=== PATIENT | female | born 1970 | race Caucasian/White ===

== ENCOUNTER 2018-11-07 22:15 | Emergency (ER) | payer SELFPAY ==
[~2018-11-07] VITALS: Ht 154.9 cm; Wt 77.1 kg
[~2018-11-07 22:15] MED LIST: CEPH500C PO; FERR-57 PO; LEVO125T6 PO; OXYC-12 PO; PNV1CAPS13 PO
[2018-11-07] MEDS ORDERED: ONDANSETRON 4 MG/2 ML (SDV) Z0FRAN IVP ONE (22:30)
[2018-11-07 22:56] LABS: BASOPHILS % (AUTO) 0 % (0-10); EOSINOPHILS # (AUTO) 0.5 10^3/uL (0.0-0.3); EOSINOPHILS % (AUTO) 6 % (0-10); HEMATOCRIT 34 % (35-52); HEMOGLOBIN 11.6 G/DL (11.5-16.0); LYMPHOCYTES # (AUTO) 1.7 X 10^3 (1.0-4.0); LYMPHOCYTES % (AUTO) 23 % (12-44); MEAN CORPUSCULAR HEMOGLOBIN 29 PG (25-34); MEAN CORPUSCULAR HGB CONC 34 G/DL (32-36); MEAN CORPUSCULAR VOLUME 84 FL (80-99); MEAN PLATELET VOLUME 11.2 FL (7.4-10.4); MONOCYTES # (AUTO) 0.7 X 10^3 (0.0-1.0); MONOCYTES % (AUTO) 9 % (0-12); NEUTROPHILS # (AUTO) 4.5 X 10^3 (1.8-7.8); NEUTROPHILS % (AUTO) 62 % (42-75); PLATELET COUNT 267 10^3/uL (130-400); RED BLOOD COUNT 4.05 10^6/uL (4.35-5.85); RED CELL DISTRIBUTION WIDTH 14.4 % (10.0-14.5); WHITE BLOOD COUNT 7.3 10^3/uL (4.3-11.0)
[2018-11-07 23:19] LABS: ALANINE AMINOTRANSFERASE 29 U/L (0-55); ALBUMIN 4.3 GM/DL (3.2-4.5); ALKALINE PHOSPHATASE 93 U/L (40-136); AMYLASE 44 U/L (25-125); BILIRUBIN,TOTAL 0.4 MG/DL (0.1-1.0); BUN/CREATININE RATIO 13; CALCIUM 9.3 MG/DL (8.5-10.1); CARBON DIOXIDE 20 MMOL/L (21-32); CHLORIDE 107 MMOL/L (98-107); CREATINE KINASE 45 U/L (29-168); CREATININE SERUM 0.98 MG/DL (0.60-1.30); GFR ESTIMATED > 60; GLUCOSE 127 MG/DL (70-105); LIPASE 46 U/L (8-78); MAGNESIUM 2.3 MG/DL (1.8-2.4); POTASSIUM 3.6 MMOL/L (3.6-5.0); SODIUM 138 MMOL/L (135-145); TOTAL PROTEIN 7.6 GM/DL (6.4-8.2)
[2018-11-07 23:33] LABS: INR 0.9 (0.8-1.4); PROTHROMBIN TIME PATIENT 12.6 SEC (12.2-14.7)
[2018-11-07 23:38] LABS: CREATINE KINASE MB 0.7 NG/ML (<6.6); TSH (THYROID ANALYZER) 86.63 UIU/ML (0.35-4.94)
[2018-11-07 23:56] LABS: BILIRUBIN,URINE NEGATIVE (NEGATIVE); GLUCOSE, URINE (UA) NEGATIVE (NEGATIVE); KETONES,URINE NEGATIVE (NEGATIVE); LEUKOCYTE ESTERASE ,URINE NEGATIVE (NEGATIVE); NITRITE,URINE NEGATIVE (NEGATIVE); PH,URINE 6 (5-9); PROTEIN,URINE NEGATIVE (NEGATIVE); UROBILINOGEN,URINE NORMAL (NORMAL)
[2018-11-07 23:57] LABS: BACTERIA,URINE NEGATIVE /HPF; CLARITY,URINE CLEAR; COLOR,URINE YELLOW
[2018-11-08 00:03] LABS: AMPHETAMINE SCREEN, URINE NEGATIVE (NEGATIVE); BARBITURATE SCREEN URINE NEGATIVE (NEGATIVE); BENZODIAZEPINES SCREEN URINE NEGATIVE (NEGATIVE); CANNABINOID SCREEN, URINE NEGATIVE (NEGATIVE); COCAINE SCREEN URINE NEGATIVE (NEGATIVE); METHADONE STAT NEGATIVE (NEGATIVE); METHAMPHETAMINE SCREEN URINE S NEGATIVE (NEGATIVE); OPIATE SCREEN URINE NEGATIVE (NEGATIVE); OXYCODONE STAT NEGATIVE (NEGATIVE); PROPOXYPHENE STAT NEGATIVE (NEGATIVE); TRICYCLIC ANTIDEPRESSANTS SCRE NEGATIVE (NEGATIVE)
--- NOTE | 2018-11-08 00:21 | ED General ---
General Chief Complaint: General Problems/Pain Stated Complaint: SOB, WANTS TO VOMIT Nursing Triage Note: PT TO ROOM #7 VIA ED W/C BY ED STAFF. UPON ARRIVAL PT A&OX4, TEARFUL, WITH INCREASED RR. PT SPEAKS MINIMAL SAMI AND HAS SISTER IN LAW @ SIDE TRANSLATING. PT REPORTS SHE HAS HAD INCREASED STRESS LATELY AND BEGAN TO FEEL ANXIOUS, SOB, WITH CHEST TIGHNESS THIS EVENING APPROX 1 HR PRIOR TO ARRIVAL. PT REPORTS HYPERTENSION AND HAS BEEN OFF BP MEDICATIONS FOR APPROX 3 MONTHS. Nursing Sepsis Screen: No Definite Risk Allergies and Home Medications Allergies Coded Allergies: Penicillins (Verified Allergy, Unknown, 12/28/09) Home Medications Hydroxyzine Pamoate 50 Mg Capsule, 50 MG PO Q6H Prescribed by: АЛЕКСАНДР ALAS on 11/08/18 0023 Levothyroxine Sodium 125 Mcg Tablet, 1 EACH PO DAILY, (Reported) Past Gkqqbri-Hmbikh-Zthjjy Hx Patient Social History Alcohol Use: Denies Use Recreational Drug Use: No Smoking Status: Never a Smoker 2nd Hand Smoke Exposure: No Recent Foreign Travel: No Contact w/Someone Who Travel: No Recent Infectious Disease Expo: No Recent Hopitalizations: Yes (CHILDBIRTH X3) Physical Abuse: No Sexual Abuse: No Immunizations Up To Date Tetanus Booster (TDap): Less than 5yrs Date of Influenza Vaccine: Jul 29, 2012 Seasonal Allergies Seasonal Allergies: No Past Medical History Surgeries: Yes Section Respiratory: No Cardiac: Yes Hypertension Neurological: No Reproductive Disorders: No Sexually Transmitted Disease: No HIV/AIDS: No Gastrointestinal: No Musculoskeletal: No Endocrine: Yes Hypothyroidsim, Diabetes, Non-Insulin dep Are Your Blood Sugars Over 250: No HEENT: No Cancer: No Psychosocial: Yes Anxiety Integumentary: No Blood Disorders: Yes Physical Exam Vital Signs Vital Signs - First Documented 11/07/18 22:20 Temp 98.5 Pulse 81 Resp 20 B/P (MAP) 170/91 (117) Pulse Ox 100 O2 Delivery Room Air Capillary Refill : Less Than 3 Seconds Height, Weight, BMI Height: 5'1.00" Weight: 170lbs. oz. 77.195371kd; BMI Method:Stated Progress/Results/Core Measures Suspected Sepsis Recent Fever Within 48 Hours: No Infection Criteria Present: None New/Unexplained Altered Menta: No Sepsis Screen: No Definite Risk SIRS Temperature:98.5 Pulse: 81 Respiratory Rate: 20 Laboratory Tests 11/07/18 22:48: White Blood Count 7.3 Blood Pressure 170 /91 Mean: 117 Laboratory Tests 11/07/18 22:48: Creatinine 0.98, INR Comment 0.9, Platelet Count 267, Total Bilirubin 0.4 Results/Orders Lab Results Laboratory Tests Test 11/07/18 22:40 11/07/18 22:48 11/07/18 23:38 Range/Units Glucometer 129 H 70-110 MG/DL White Blood Count 7.3 4.3-11.0 10^3/uL Red Blood Count 4.05 L 4.35-5.85 10^6/uL Hemoglobin 11.6 11.5-16.0 G/DL Hematocrit 34 L 35-52 % Mean Corpuscular Volume 84 80-99 FL Mean Corpuscular Hemoglobin 29 25-34 PG Mean Corpuscular Hemoglobin Concent 34 32-36 G/DL Red Cell Distribution Width 14.4 10.0-14.5 % Platelet Count 267 130-400 10^3/uL Mean Platelet Volume 11.2 H 7.4-10.4 FL Neutrophils (%) (Auto) 62 42-75 % Lymphocytes (%) (Auto) 23 12-44 % Monocytes (%) (Auto) 9 0-12 % Eosinophils (%) (Auto) 6 0-10 % Basophils (%) (Auto) 0 0-10 % Neutrophils # (Auto) 4.5 1.8-7.8 X 10^3 Lymphocytes # (Auto) 1.7 1.0-4.0 X 10^3 Monocytes # (Auto) 0.7 0.0-1.0 X 10^3 Eosinophils # (Auto) 0.5 H 0.0-0.3 10^3/uL Basophils # (Auto) 0.0 0.0-0.1 10^3/uL Prothrombin Time 12.6 12.2-14.7 SEC INR Comment 0.9 0.8-1.4 Activated Partial Thromboplast Time 41 H 24-35 SEC Sodium Level 138 135-145 MMOL/L Potassium Level 3.6 3.6-5.0 MMOL/L Chloride Level 107 98-107 MMOL/L Carbon Dioxide Level 20 L 21-32 MMOL/L Anion Gap 11 5-14 MMOL/L Blood Urea Nitrogen 13 7-18 MG/DL Creatinine 0.98 0.60-1.30 MG/DL Estimat Glomerular Filtration Rate > 60 BUN/Creatinine Ratio 13 Glucose Level 127 H 70-105 MG/DL Calcium Level 9.3 8.5-10.1 MG/DL Corrected Calcium 9.1 8.5-10.1 MG/DL Magnesium Level 2.3 1.8-2.4 MG/DL Total Bilirubin 0.4 0.1-1.0 MG/DL Aspartate Amino Transf (AST/SGOT) 24 5-34 U/L Alanine Aminotransferase (ALT/SGPT) 29 0-55 U/L Alkaline Phosphatase 93 40-136 U/L Total Creatine Kinase 45 29-168 U/L Creatine Kinase MB 0.7 <6.6 NG/ML Troponin I < 0.028 <0.028 NG/ML B-Type Natriuretic Peptide < 10.0 <100.0 PG/ML Total Protein 7.6 6.4-8.2 GM/DL Albumin 4.3 3.2-4.5 GM/DL Amylase Level 44 25-125 U/L Lipase 46 8-78 U/L TSH [place] Testing 86.63 H 0.35-4.94 UIU/ML Serum Test, Qualitative NEGATIVE NEGATIVE Serum Alcohol < 10 <10 MG/DL Urine Color YELLOW Urine Clarity CLEAR Urine pH 6 5-9 Urine Specific [place] 1.015 L 1.016-1.022 Urine Protein NEGATIVE NEGATIVE Urine Glucose (UA) NEGATIVE NEGATIVE Urine Ketones NEGATIVE NEGATIVE Urine Nitrite NEGATIVE NEGATIVE Urine Bilirubin NEGATIVE NEGATIVE Urine Urobilinogen NORMAL NORMAL MG/DL Urine Leukocyte Esterase NEGATIVE NEGATIVE Urine RBC (Auto) 3+ H NEGATIVE Urine RBC 2-5 H /HPF Urine WBC NONE /HPF Urine Squamous Epithelial Cells 2-5 /HPF Urine Crystals NONE /LPF Urine Bacteria NEGATIVE /HPF Urine Casts NONE /LPF Urine Mucus NEGATIVE /LPF Urine Culture Indicated NO Urine Opiates Screen NEGATIVE NEGATIVE Urine Oxycodone Screen NEGATIVE NEGATIVE Urine Methadone Screen NEGATIVE NEGATIVE Urine Propoxyphene Screen NEGATIVE NEGATIVE Urine Barbiturates Screen NEGATIVE NEGATIVE Ur Tricyclic Antidepressants Screen NEGATIVE NEGATIVE Urine Phencyclidine Screen NEGATIVE NEGATIVE Urine Amphetamines Screen NEGATIVE NEGATIVE Urine Methamphetamines Screen NEGATIVE NEGATIVE Urine Benzodiazepines Screen NEGATIVE NEGATIVE Urine Cocaine Screen NEGATIVE NEGATIVE Urine Cannabinoids Screen NEGATIVE NEGATIVE My Orders Orders - АЛЕКСАНДР ALAS DO Accucheck Stat ONCE (11/07/18 22:28) Saline Lock/Iv-Start (11/07/18 22:28) Ekg Tracing (11/07/18 22:28) Monitor-Rhythm Ecg Trace Only (11/07/18 22:28) Alcohol (11/07/18:28) Amylase (11/07/18:28) BNP (11/07/18:28) Cbc With Automated Diff (11/07/18:28) Comprehensive Metabolic Panel (11/07/18:28) Creatine Kinase (11/07/18:28) Creatine Kinase Mb (11/07/18:28) Drug Screen Stat (Urine) (11/07/18:28) Hcg,Qualitative Serum (11/07/18:) Lipase (11/07/18:28) Magnesium (11/07/18:) Protime With Inr (11/07/18:) Partial Thromboplastin Time (11/07/18:28) Thyroid Analyzer (11/07/18:28) Troponin I (11/07/18:) Ua Culture If Indicated (11/07/18:28) Chest 1 View, Ap/Pa Only (11/07/18 22:28) Ondansetron Injection (Zofran Injectio (11/07/18 22:30) Free T4 (Free Thyroxine) (11/07/18 22:48) Medications Given in ED Current Medications Medications Dose Ordered Sig/Cielo Route Start Time Stop Time Status Last Admin Dose Admin Ondansetron HCl 4 mg ONCE ONCE IVP 11/07/18 22:30 11/07/18 22:31 DC 11/07/18 22:52 4 MG Vital Signs/I&O 11/07/18 22:20 Temp 98.5 Pulse 81 Resp 20 B/P (MAP) 170/91 (117) Pulse Ox 100 O2 Delivery Room Air Capillary Refill : Less Than 3 Seconds Blood Pressure Mean: 117 Point of Care Testing Finger Stick Blood Glucose: 129 Progress Note : Progress Note SYMPTOMS OF ANXIETY AND CHEST TIGHTNESS RESOLVED WITHOUT TREATMENT DURING ER STAY PT NOW C/O HEADACHE, NOW THAT SHE IS CALMED DOWN AND CHEST IS NO LONGER FEELING TIGHT PRIOR TO DISMISSAL, MALE S.O. STATES SHE HAS BEEN OUT OF HER THYROID MEDICATION X 2 DAYS, OTHERWISE SHE TAKES IT EVERY DAY. Departure Impression Primary Impression: ANXIETY WITH HYPERVENTILATION Additional Impressions: HYPOTHYROIDISM WITH ELEVATED TSH HTN (hypertension) Disposition: 01 HOME, SELF-CARE Condition: Improved Departure-Patient Inst. Referrals: [facility] (PCP/Family) Primary Care Physician Patient Instructions: Anxiety, Adult (DC), High Blood Pressure (DC), Hyperventilation, Hypothyroidism (Underactive Thyroid) (DC) Add. Discharge Instructions: DOUBLE YOUR DOSE OF THYROID MEDICATION TYLENOL 1 GRAM/ MOTRIN 600 MG 4 TIMES A DAY NEEDED FOR PAIN FOLLOW UP WITH YOUR DR THIS WEEK FOR FURTHER CARE RETURN TO ER IF SYMPTOMS WORSEN All discharge instructions reviewed with patient and/or family. Voiced understanding. Scripts Hydroxyzine Pamoate (Vistaril) 50 Mg Capsule 50 MG PO Q6H for Anxiety, #20 CAP Prov: АЛЕКСАНДР ALAS DO 11/08/18 АЛЕКСАНДР ALAS DO Nov 08, 2018 00:21
[2018-11-08] MEDS ORDERED: HYDR50CA PO (00:23)
--- OUTSIDE RECORDS SUMMARY | 2018-11-08 00:27 | XMS REPORT ---
Author Author ALEN Beckwith Organization [facility] Address [address] [place] [address] Care Team Providers Care Chha Name Role Phone ALEN Beckwith Unavailable PROBLEMS Type Condition ICD9-CM Code BVQ41-SU Code Onset Dates Condition Status SNOMED Code Problem Elevated blood pressure I10 Active 79413570 Problem Hypercholesteremia E78.00 Active 45465648 Problem Sciatica of right side M54.31 Active 55523440 Problem Type 2 diabetes mellitus with hyperglycemia, without long-term current use of insulin E11.65 Active 57479612 Problem Headache R51 Active 46903914 Problem Acquired hypothyroidism E03.9 Active 115221309 Problem Body mass index (BMI) of 32.0-32.9 in adult Z68.32 Active 137569051 Problem Other obesity due to excess calories E66.09 Active 816523024 ALLERGIES No Information ENCOUNTERS Encounter Location Date Diagnosis [facility] [address] [address] Jul, Acquired hypothyroidism E03.9 [facility] [id number] [place] [address] Jul, Acquired hypothyroidism E03.9 [facility] [address] [address] May, Acquired hypothyroidism E03.9 [facility] [address] [address] May, Type 2 diabetes mellitus with hyperglycemia, without long- term current use of insulin E11.65 ; Acquired hypothyroidism E03.9 and Hypercholesteremia E78.[address] [facility] [id number] [place] [address] Apr, Sciatica of right side M54.31 [place] [id number] [place] [address] Jan, Type 2 diabetes mellitus with hyperglycemia, without long- term current use of insulin E11.65 ; Acquired hypothyroidism E03.9 ; Hypercholesteremia E78.00 ; [place] cardiac risk <10% in next 10 years Z91.89 ; Other obesity due to excess calories E66.09 and Body mass index (BMI) of 32.0-32.9 in adult Z68.32 [place] [id number] [place] [address] 12072- 42[address] Dec, [place] [id number] [place] [address] 43051- 65[address] Dec, Acquired hypothyroidism E03.9 [place] [id number] [place] [address] 07186- 6720 Dec, Type 2 diabetes mellitus with hyperglycemia, without long- term current use of insulin E11.65 ; Acquired hypothyroidism E03.9 ; Elevated blood pressure I10 and Other obesity due to excess calories E66.09 [place] [id number] [place] [address] 14[address]- 7044 Dec, Type 2 diabetes mellitus with hyperglycemia, without long- term current use of insulin E11.65 ; Acquired hypothyroidism E03.9 ; Elevated blood pressure I10 ; Dysuria R30.0 ; Dizziness R42 ; Acute cystitis with hematuria N30.01 ; Headache R51 ; Other obesity due to excess calories E66.09 and Body mass index (BMI) of 32.0-32.9 in adult Z68.[address] [facility] [id number] [place] [address] -[address]691 Mar, Foot pain, left M79.672 [place] [id number] [place] [address] 6[address]65- 2944 Dec, Hypothyroidism E03.9 [facility] [id number] [place] [address]31- [address] Dec, Acquired hypothyroidism E03.9 ; Elevated blood pressure I10 and Headache R51 [facility] [id number] [place] [address] 03734- 7233 Sep, Bone spur M77.9 [facility] [id number] [place] [address] 2546 Sep, Hypothyroidism E03.9 [facility] [id number] [place] [address]2768 2546 Sep, Pain in right foot M79.671 [facility] [address] [address]46 Sep, Hypothyroidism E03.9 [facility] [address] [address] 2546 Sep, Hypothyroidism E03.9 [place] [id number] [place] [address] 70731- 2547 Sep, Pain in right foot M79.671 and Hypothyroidism E03.9 [place] [id number] [place] [address] 83337- 2033 Jun, Hypothyroidism 244.9 and History of blurry vision V12.49 [place] [id number] [place] [address] 01478- 0140 May, Nexplanon removal V25.43 and Initiation of OCP (BCP) V25.01 [place] [id number] [place] [address] 61332- 1619 Apr, [place] [id number] [place] [address] 96730- 2547 Apr, Hypothyroidism 244.9 and Constipation 564.00 [place] [address] [address]- [address] Mar, [place] [id number] [place] [address]- 25[address] Mar, [place] [address] [address] Mar, Unspecified hypothyroidism 244.9 [facility] [address] [facility] [id number] [address] Mar, Unspecified hypothyroidism 244.9 [facility] [address] [facility] [id number] [place] [address] 16 Mar, 2015 Unspecified hypothyroidism 244.9 [facility] [address] [facility] [id number] [place] [address] Jan, [facility] [address] [facility] [id number] [place] [address] Jan, [facility] [id number] [place] [address] 25728- 27[address] Nov, [facility] [address] [place] [address] Nov, [facility] [address] [place] [address] 279[address] Oct, [facility] [address] [place] [address] Oct, [facility] [address] [place] [address] Oct, [facility] [address] [place] [address] Oct, [facility] [address] [place] [address] Oct, [facility] [address] [id number] [address] Oct, [facility] [place] [facility] [address] [place] [address] 30[address] Oct, [facility] [address] [id number] [address]- 9[address] Oct, [facility] [address] [place] [address]- 9[address] Oct, [facility] [address] [id number] [place] [address] February, [facility] [place] [facility] [address] [id number] [place] [address]- 9896 February, [facility] [place] [facility] [address] [id number] [place] [address]- 7458 Dec, [facility] [place] [facility] [address] [id number] [place] [address]- 1737 Dec, [facility] [place] [facility] [address] [id number] [place] [address]- 2532 Dec, [facility] [place] [facility] [address] [id number] [place] [address]- 0329 Dec, [facility] [place] [facility] [address] [id number] [place] [address]- 2750 Nov, [facility] [place] [facility] [address] [id number] [place] [address]- 5695 Nov, [facility] [place] [facility] [address] [id number] [place] [address]- 6992 Oct, [facility] [place] [facility] [address] [id number] [place] [address]- 8653 Oct, [facility] [place] [facility] [address] [id number] [place] [address]- 6940 Mar, [facility] [place] [facility] [address] [id number] [place] [address]- 1926 February, [facility] [place] [facility] [address] [id number] [place] [address]- 5286 February, [facility] [place] [facility] [address] [id number] [place] [address]- 5066 February, [facility] [place] [facility] [address] [id number] [place] [address]- 5[address] February, [facility] [place] [facility] [address] [id number] [place] [address]- 5570 February, [facility] [address] [id number] [place] [address]- 2740 February, [facility] [address] [id number] [place] [address]- 2546 February, [facility] [address] [id number] [place] [address]- 6172 Dec, [facility] [address] [id number] [place] [address]- 0633 Dec, [facility] [address] [id number] [place] [address]- 3248 Dec, [facility] [address] [id number] [place] [address]- 9427 Nov, [facility] [address] [id number] [place] [address]- 5303 Nov, [facility] [address] [id number] [place] [address]- 6379 Nov, [facility] [id number] [place] [address]- 1189 Nov, [facility] [address] [facility] [id number] [place] [address]- 3241 Nov, [facility] [address] [id number] [place] [address]- 6139 Nov, [facility] [address] [id number] [place] [address]- 6658 Nov, [facility] [place] [facility] [address] [id number] [place] [address]- 9916 Oct, [facility] [place] [facility] [address] [id number] [place] [address]- 1178 Oct, [facility] [place] [facility] [address] [id number] [place] [address]- 0667 Oct, [facility] [place] [facility] [address] [id number] [place] [address]- 4455 Oct, [facility] [place] [facility] [address] [id number] [place] [address]- 4566 Oct, [facility] [place] [facility] [address] [facility] [id number] [place] [address]- 4056 Sep, [facility] [place] [facility] [address] [id number] [place] [address]- 8580 Sep, [facility] [place] [facility] [address] [id number] [place] [address]- 7137 Aug, [facility] [place] [facility] [address] [id number] [place] [address]- 1182 Aug, [facility] [place] [facility] [address] [id number] [place] [address]- 4392 Jul, [facility] [place] [facility] [address] [id number] [place] [address]- 4237 Jul, [facility] [place] [facility] [address] [id number] [place] [address]- 2269 Jul, [facility] [place] [facility] [address] [id number] [place] [address]- 9620 Jul, [facility] [place] [facility] [address] [id number] [place] [address]- 1386 Jul, [facility] [place] [facility] [address] [id number] [place] [address]- 2094 Jul, [facility] [place] [facility] [address] [id number] [place] [address]- 5589 Jul, [facility] [place] [facility] [address] [facility] [id number] [place] [address]- 4439 Jul, [facility] [place] [facility] [address] [id number] [place] [address]- 0944 Jun, [facility] [place] [facility] [address] [id number] [place] [address]- 3364 26 Sep, 2011 [facility] [address] [id number] [place] [address] 2546 20 Sep, 2011 [facility] [address] [id number] [place] [address] 2546 19 Sep, 2011 [facility] [address] [id number] [place] [address] 2546 18 Sep, 2011 [facility] [address] [id number] [place] [address] 2546 12 Sep, 2011 [facility] [address] [id number] [place] [address]- 9858 10 Sep, 2011 [facility] [address] [id number] [place] [address]- 6434 07 Sep, 2011 [facility] [address] [id number] [place] [address]- 8310 07 Sep, 2011 [facility] [address] [id number] [place] [address]- 8036 06 Sep, 2011 [facility] [address] [id number] [place] [address]- 3204 05 Sep, 2011 [facility] [address] [id number] [place] [address]- 5135 07 May, 2012 [facility] [address] [id number] [place] [address] 2549 Apr, [facility] [address] [id number] [place] [address]- 2544 Aug, [facility] [place] [facility] [address] [id number] [place] [address] 2546 15 Aug, 2010 [facility] [place] [facility] [address] [id number] [place] [address]- 2540 15 Aug, 2010 [facility] [address] [id number] [place] [address]- 6374 09 Aug, 2010 [facility] [place] [facility] [address] [id number] [place] [address] Aug, [facility] [place] [facility] [address] [id number] [place] [address] Jul, [facility] [place] [facility] [address] [id number] [place] [address] Jul, [facility] [place] [facility] [address] [id number] [place] [address] February, [facility] [place] [facility] [address] [id number] [place] [address] Nov, [facility] [place] [facility] [address] [id number] [place] [address] Nov, [facility] [place] [facility] [address] [id number] [place] [address] Oct, [facility] [place] [facility] [address] [id number] [place] [address] Sep, [facility] [place] [facility] [address] [id number] [place] [address] Sep, [facility] [place] [facility] [address] [facility] [id number] [place] [address] Sep, [facility] [place] [facility] [address] [id number] [place] [address] Sep, [facility] [place] [facility] [address] [id number] [place] [address] Sep, [facility] [place] [facility] [address] [id number] [place] [address] 27 Aug, 2009 [facility] [place] [facility] [address] [id number] [place] [address] Aug, [facility] [place] [facility] [address] [id number] [place] [address] 16 Aug, 2009 [facility] [place] [facility] [address] [id number] [place] [address] Aug, [facility] [address] [facility] [id number] [place] [address] Aug, [facility] [address] [facility] [id number] [place] [address] Jul, [facility] [address] [facility] [id number] [place] [address] Jul, [facility] [address] [facility] [id number] [place] [address] Jun, IMMUNIZATIONS No Known Immunizations SOCIAL HISTORY Never Assessed REASON FOR VISIT Lab (walk-in) PLAN OF CARE VITAL SIGNS MEDICATIONS Unknown Medications RESULTS No Results PROCEDURES Procedure Date Ordered Result Body Site ASSAY THYROID STIM HORMONE Jul 30, 2018 VENIPUNCT, ROUTINE* Jul 30, 2018 INSTRUCTIONS MEDICATIONS ADMINISTERED No Known Medications MEDICAL (GENERAL) HISTORY Type Description Date Medical History HYPOTHYROID Medical History ARTHRITIS Medical History MARQUEZ Medical History gestational diabetes with last two pregnancies Surgical History C SECTION X1 Surgical History Left thumb surgery Hospitalization History Childbirth
--- OUTSIDE RECORDS SUMMARY | 2018-11-08 00:27 | XMS REPORT ---
Author Author DREW ALEN Organization [facility] Address [address] [place] [address] Care Team Providers Care Line Up Worker Name Role Phone RUSSELLALEN Kwan Unavailable PROBLEMS Type Condition ICD9-CM Code ZGD47-AW Code Onset Dates Condition Status SNOMED Code Problem Elevated blood pressure I10 Active 82548006 Problem Hypercholesteremia E78.00 Active 95425233 Problem Sciatica of right side M54.31 Active 18240504 Problem Type 2 diabetes mellitus with hyperglycemia, without long-term current use of insulin E11.65 Active 67343866 Problem Headache R51 Active 24906029 Problem Acquired hypothyroidism E03.9 Active 866404613 Problem Body mass index (BMI) of 32.0-32.9 in adult Z68.32 Active 152648208 Problem Other obesity due to excess calories E66.09 Active [id number] ALLERGIES No Information ENCOUNTERS Encounter Location Date Diagnosis [facility] [id number] [place] [address] 92006- 6804 May, Acquired hypothyroidism E03.9 [facility] [id number] [place] [address] 68463- 7880 May, Type 2 diabetes mellitus with hyperglycemia, without long- term current use of insulin E11.65 ; Acquired hypothyroidism E03.9 and Hypercholesteremia E78.00 [facility] [id number] [place] [address] 35772 -4887 Apr, Sciatica of right side M54.31 [facility] [id number] [place] [address] 12228- 3681 Jan, Type 2 diabetes mellitus with hyperglycemia, without long- term current use of insulin E11.65 ; Acquired hypothyroidism E03.9 ; Hypercholesteremia E78.00 ; Stowell cardiac risk <10% in next 10 years Z91.89 ; Other obesity due to excess calories E66.09 and Body mass index (BMI) of 32.0-32.9 in adult Z68.32 [facility] [id number] [place] [address] 84939- 7496 15 Dec, 2017 [facility] [id number] [place] [address] 79834- 2224 Dec, Acquired hypothyroidism E03.9 [facility] [id number] [place] [address] 80252- 1626 12 Dec, 2017 Type 2 diabetes mellitus with hyperglycemia, without long- term current use of insulin E11.65 ; Acquired hypothyroidism E03.9 ; Elevated blood pressure I10 and Other obesity due to excess calories E66.09 [facility] [id number] [place] [address] 91146- 5537 09 Dec, 2017 Type 2 diabetes mellitus with hyperglycemia, without long- term current use of insulin E11.65 ; Acquired hypothyroidism E03.9 ; Elevated blood pressure I10 ; Dysuria R30.0 ; Dizziness R42 ; Acute cystitis with hematuria N30.01 ; Headache R51 ; Other obesity due to excess calories E66.09 and Body mass index (BMI) of 32.0-32.9 in adult Z68.32 [facility] [id number] [place] [address] 11707 -9400 Mar, Foot pain, left M79.672 [facility] [facility] [id number] [place] [address] 86795- 7523 Dec, Hypothyroidism E03.9 [facility] [id number] [place] [address] 64415- 6003 Dec, Acquired hypothyroidism E03.9 ; Elevated blood pressure I10 and Headache R51 [facility] [id number] [place] [address] 31688- 6123 Sep, Bone spur M77.9 [facility] [id number] [place] [address] 44284- 9357 14 Sep, 2015 Hypothyroidism E03.9 [facility] [id number] [place] [address] 88827- 2211 11 Sep, 2015 Pain in right foot M79.671 [facility] [id number] [place] [address] 35447- 6632 Sep, Hypothyroidism E03.9 [facility] [id number] [place] [address] 20458- 2546 Sep, Hypothyroidism E03.9 [facility] [id number] [place] [address] 67713- 2549 Sep, Pain in right foot M79.671 and Hypothyroidism E03.9 [facility] [address] 98256- 2076 Jun, Hypothyroidism 244.9 and History of blurry vision V12.49 [place] [address] 17232- 2729 May, Nexplanon removal V25.43 and Initiation of OCP (BCP) V25.01 [facility] [id number] [place] [address] 27820- 9335 Apr, [facility] [id number] [place] [address] 78283- 7984 Apr, Hypothyroidism 244.9 and Constipation 564.00 [place] [id number] [place] [address] 17094- 2596 Mar, [facility] [id number] [place] [address] 20266- 9759 Mar, [facility] [id number] [place] [address] 11959- 7089 Mar, Unspecified hypothyroidism 244.9 [facility] [id number] [place] [address] 64494- 2970 Mar, Unspecified hypothyroidism 244.9 [facility] [id number] [place] [address] 52492- 3083 Mar, Unspecified hypothyroidism 244.9 [facility] [place] [facility] [address] [id number] [place] [address]- 6746 Jan, [facility] [address] [id number] [place] [address]- 6832 Jan, [facility] [place] [facility] [address] [id number] [place] [address]- 7261 Nov, [facility] [place] [facility] [address] [id number], [place] [address] 2171 Nov, [facility] [address] [id number] [place] [address]- 7646 Oct, [facility] [place] [facility] [address] [id number] [place] [address]- 6995 Oct, [facility] [address] [id number] [place] [address]- 0217 Oct, [facility] [address] [id number] [place] [address]- 1372 Oct, [facility] [address] [id number], [place] [address]- 3339 Oct, [facility] [place] [facility] [address] [facility] [id number] [place] [address]- 0155 Oct, [facility] [address] [id number], [place] [address]- 3918 Oct, [facility] [place] [facility] [address] [id number], [place] [address]- 9141 Oct, [facility] [place] [facility] [address] [id number], [place] [address]- 3081 Oct, [facility] [place] [facility] [address] [facility] [id number], [place] [address]- 8114 February, [facility] [place] [facility] [address] [id number] [place] [address]- 5533 February, [facility] [place] [facility] [address] [id number] [place] [address] 2546 Dec, [facility] [address] [id number] [place] [address]- 8356 Dec, [facility] [place] [facility] [address] [id number] [place] [address] 2546 Dec, [facility] [address] [id number] [place] [address] 2546 Dec, [facility] [place] [facility] [address] [id number] [place] [address]- 7304 Nov, [facility] [address] [id number] [place] [address] 2546 Nov, [facility] [address] [id number] [place] [address]- 8736 Oct, [facility] [address] [id number] [place] [address]- 7266 Oct, [facility] [address] [id number] [place] [address]- 8769 Mar, [facility] [address] [id number] [place] [address]- 1646 February, [facility] [address] [id number] [place] [address]- 4426 February, [facility] [address] [id number] [place] [address]- 2546 February, [facility] [address] [id number] [place] [address]- 2546 February, [facility] [place] [facility] [address] [id number] [place] [address]- 2546 February, [facility] [place] [facility] [address] [id number] [place] [address]- 2546 February, [facility] [place] [facility] [address] [id number] [place] [address]- 9031 February, [facility] [address] [id number] [place] [address]- 1511 Dec, [facility] [place] [facility] [address] [id number] [place] [address]- 8676 Dec, [facility] [place] [facility] [address] [id number] [place] [address]- 5467 Dec, [facility] [place] [facility] [address] [id number] [place] [address]- 2899 Nov, [facility] [place] [facility] [address] [id number] [place] [address]- 2542 Nov, [facility] [place] [facility] [address] [id number] [place] [address]- 7641 Nov, [facility] [place] [facility] [address] [id number] [place] [address]- 9473 Nov, [facility] [place] [facility] [address] [id number] [place] [address]- 2911 Nov, [facility] [place] [facility] [address] [id number] [place] [address]- 4745 Nov, [facility] [place] [facility] [address] [id number] [place] [address]- 2845 Nov, [facility] [place] [facility] [address] [id number] [place] [address]- 9928 Oct, [facility] [place] [facility] [address] [id number] [place] [address]- 3899 Oct, [facility] [place] [facility] [address] [id number] [place] [address]- 3907 Oct, [facility] [place] [facility] [address] [id number] [place] [address]- 0275 Oct, [facility] [place] [facility] [address] [id number] [place] [address]- 5902 Oct, [facility] [place] [facility] [address] [id number] [place] [address]- 5784 Sep, [facility] [place] [facility] [address] [id number] [place] [address]- 4294 Sep, [facility] [place] [facility] [address] [id number] [place] [address]- 9343 Aug, [facility] [place] [facility] [address] [id number] [place] [address]- 8264 Aug, [facility] [place] [facility] [address] [id number] [place] [address]- 5439 Jul, [facility] [place] [facility] [address] [id number] [place] [address]- 9438 Jul, [facility] [place] [facility] [address] [id number] [place] [address]- 4218 Jul, [facility] [place] [facility] [address] [id number] [place] [address]- 5264 Jul, [facility] [place] [facility] [address] [id number] [place] [address]- 0118 Jul, [facility] [place] [facility] [address] [id number] [place] [address]- 2285 Jul, [facility] [place] [facility] [address] [facility] [id number] [place] [address]- 7662 Jul, [facility] [place] [facility] [address] [id number] [place] [address]- 2043 Jul, [facility] [place] [facility] [address] [id number] [place] [address]- 3410 27 Jun, 2012 [facility] [place] [facility] [address] [id number] [place] 5899 26 Jun, 2012 [facility] [place] [facility] [address] [id number] [place] [address]- 5262 20 Jun, 2012 [facility] [place] [facility] [address] [id number] [place] 3266 19 Jun, 2012 [facility] [place] [facility] [address] [id number] [place] [address]- 2109 18 Sep, 2011 [facility] [place] [facility] [address] [id number] [place] [address]- 2607 12 Sep, 2011 [facility] [place] [facility] [address] [id number] [place] [address]- 5979 10 Sep, 2011 [facility] [place] [facility] [address] [id number] [place] [address]- 6612 07 Sep, 2011 [facility] [place] [facility] [address] [id number] [place] [address]- 5227 07 Sep, 2011 [facility] [place] [facility] [address] [id number] [place] [address]- 9728 06 Sep, 2011 [facility] [place] [facility] [address] [id number] [place] [address]- 5439 05 Jun, 2011 [facility] [place] [facility] [address] [id number] [place] [address]- 5765 07 May, 2012 [facility] [place] [facility] [address] [id number] [place] [address]- 1856 Apr, [facility] [place] [facility] [address] [id number], [place] [address]- 0389 Aug, [facility] [place] [facility] [address] [id number], [place] [address]- 6629 15 Aug, 2010 [facility] [place] [facility] [address] [id number], [place] [address]- 0874 15 Aug, 2010 [facility] [place] [facility] [address] [id number] [place] [address]- 7079 Aug, [facility] [place] [facility] [address] [id number], [place] [address]- 0347 04 Aug, 2010 [facility] [place] [facility] [address] [id number] [place] [address]- 4738 Jul, [facility] [place] [facility] [address] [id number] [place] [address]- 3186 20 Jul, 2010 [facility] [place] [facility] [address] [id number] [place] [address]- 0956 February, [facility] [place] [facility] [address] [id number] [place] [address]- 1736 19 Nov, 2009 [facility] [place] [facility] [address] [id number] [place] [address] 2546 Nov, [facility] [place] [facility] [address] [id number] [place] [address] 2548 Oct, [facility] [place] [facility] [address] [id number] [place] [address]- 0078 29 Sep, 2009 [facility] [place] [facility] [address] [id number] [place] [address]- 2544 22 Sep, 2009 [facility] [place] [facility] [address] [id number] [place] [address]- 9009 Sep, [facility] [place] [facility] [address] [id number] [place] [address]- 2541 11 Sep, 2009 [facility] [place] [facility] [address] [facility] [id number] [place] [address]- 2289 Sep, [facility] [place] [facility] [address] [facility] [id number] [place] [address]- 2547 27 Aug, 2009 [facility] [place] [facility] [address] [id number] [place] [address] 2546 20 Aug, 2009 [facility] [place] [facility] [address] [id number], [place] [address]- 2548 16 Aug, 2009 [facility] [place] [facility] [address] [id number] [place] [address] 2540 12 Aug, 2009 [facility] [place] [facility] [address] [id number] [place] [address]- 2546 12 Aug, 2009 [facility] [place] [facility] [address] [id number], [place] [address] 2541 Jul, [facility] [address] [facility] [id number] [place]- [address]602 Jul, [facility] [address] [facility] [id number][place] 5915 Jun, IMMUNIZATIONS No Known Immunizations SOCIAL HISTORY Never Assessed REASON FOR VISIT Med change and lab order PLAN OF CARE VITAL SIGNS MEDICATIONS Medication Instructions Dosage Frequency Start Date End Date Duration Status Levothyroxine Sodium 50 MCG Orally Once a day 1 tablet on an empty stomach in the morning 24h Dec, Active RESULTS No Results PROCEDURES No Known procedures INSTRUCTIONS MEDICATIONS ADMINISTERED No Known Medications MEDICAL (GENERAL) HISTORY Type Description Date Medical History HYPOTHYROID Medical History ARTHRITIS Medical History MARQUEZ Medical History gestational diabetes with last two pregnancies Surgical History C SECTION X1 Surgical History Left thumb surgery Hospitalization History Childbirth
--- OUTSIDE RECORDS SUMMARY | 2018-11-08 00:27 | XMS REPORT ---
Author Author MODESTO RICARDO Organization 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 Name Role Phone MODESTO RICARDO Unavailable PROBLEMS Type Condition ICD9-CM Code SGP39-MD Code Onset Dates Condition Status SNOMED Code Problem Elevated blood pressure I10 Active 90143244 Problem Hypercholesteremia E78.00 Active 55844435 Problem Sciatica of right side M54.31 Active 37169047 Problem Type 2 diabetes mellitus with hyperglycemia, without long-term current use of insulin E11.65 Active 54505040 Problem Headache R51 Active 01129631 Problem Acquired hypothyroidism E03.9 Active 186960810 Problem Body mass index (BMI) of 32.0-32.9 in adult Z68.32 Active 815568166 Problem Other obesity due to excess calories E66.09 Active [id number] ALLERGIES No Information ENCOUNTERS Encounter Location Date Diagnosis [facility] [address] [address] Jul, Acquired hypothyroidism E03.9 [facility] [address] [address] Jul, Acquired hypothyroidism E03.9 [facility] [address] [address] May, Acquired hypothyroidism E03.9 [facility] [address] [address] May, Type 2 diabetes mellitus with hyperglycemia, without long- term current use of insulin E11.65 ; Acquired hypothyroidism E03.9 and Hypercholesteremia E78.00 [facility] [id number] [place] [address] Apr, Sciatica of right side M54.31 [place] [address] [place] [address]- [address] Jan, Type 2 diabetes mellitus with hyperglycemia, without long- term current use of insulin E11.65 ; Acquired hypothyroidism E03.9 ; Hypercholesteremia E78.00 ; [place] cardiac risk <10% in next 10 years Z91.89 ; Other obesity due to excess calories E66.09 and Body mass index (BMI) of 32.0-32.9 in adult Z68.32 [place] [id number] [place] [address]19- [address]32 Dec, [place] [id number] [place] [address]7981- 5391 Dec, Acquired hypothyroidism E03.9 [place] [id number] [place] [address] 40709- 1662 Dec, Type 2 diabetes mellitus with hyperglycemia, without long- term current use of insulin E11.65 ; Acquired hypothyroidism E03.9 ; Elevated blood pressure I10 and Other obesity due to excess calories E66.09 [place] [id number] [place] [address]16- 9862 Dec, Type 2 diabetes mellitus with hyperglycemia, without long- term current use of insulin E11.65 ; Acquired hypothyroidism E03.9 ; Elevated blood pressure I10 ; Dysuria R30.0 ; Dizziness R42 ; Acute cystitis with hematuria N30.01 ; Headache R51 ; Other obesity due to excess calories E66.09 and Body mass index (BMI) of 32.0-32.9 in adult Z68.32 [facility] [address] [place] [address] -[address]846 Mar, Foot pain, left M79.672 [place] [id number] [place] [address]81- 1594 Dec, Hypothyroidism E03.9 [facility] [id number] [place] [address] 74653- 9224 Dec, Acquired hypothyroidism E03.9 ; Elevated blood pressure I10 and Headache R51 [facility] [id number] [place] [address] 15563- 6999 Sep, Bone spur M77.9 [facility] [id number] [place] [address]6762 2546 Sep, Hypothyroidism E03.9 [facility] [id number] [place] [address]30 2546 Sep, Pain in right foot M79.671 [facility] [address] [address] 2546 Sep, Hypothyroidism E03.9 [facility] [address] [address] 2546 Sep, Hypothyroidism E03.9 [place] [id number] [place] [address] 93029- 2545 Sep, Pain in right foot M79.671 and Hypothyroidism E03.9 [place] [id number] [place] [address] 89292- 1243 Jun, Hypothyroidism 244.9 and History of blurry vision V12.49 [place] [id number] [place] [address] 57288- 4870 May, Nexplanon removal V25.43 and Initiation of OCP (BCP) V25.01 [place] [id number] [place] [address] 95686- 5410 Apr, [place] [id number] [place] [address] 09335- 2549 Apr, Hypothyroidism 244.9 and Constipation 564.00 [place] [address] [address]- [address]36 Mar, [place] [id number] [place] [address] 63352- 2545 Mar, [place] [address] [address]- 3925 Mar, Unspecified hypothyroidism 244.9 [facility] [address] [facility] [id number], [place] [address] Mar, Unspecified hypothyroidism 244.9 [facility] [address] [facility] [id number], [place] [address] 16 Mar, 2015 Unspecified hypothyroidism 244.9 [facility] [address] [facility] [id number], [place] [address] 366[address] Jan, [facility] [address] [facility] [id number], [place] [address]- 1461 Jan, [facility] [address] [place] [address] 15016- 7873 Nov, [facility] [address] [address]- 5[address] Nov, [facility] [address] [address]- 1817 Oct, [facility] [address], [place] [address]- 8587 Oct, [facility] [address] [address]- 74[address] Oct, [facility] [address], [place] [address]- 7584 Oct, [facility] [address], [place] [address]- 9996 Oct, [facility] [address] [address] [id number], [place] [address] Oct, [facility] [place] [facility] [address], [place] [address]- 3330 Oct, [facility] [address] [id number], [place] [address]- 4106 Oct, [facility] [address] [address]- 0[address] Oct, [facility] [address] [id number] [place] [address]- 4112 February, [facility] [place] [facility] [address] [id number] [place] [address]- 0406 February, [facility] [place] [facility] [address] [id number] [place] [address]- 4560 Dec, [facility] [place] [facility] [address] [id number] [place] [address]- 4365 Dec, [facility] [place] [facility] [address] [id number] [place] [address]- 9054 Dec, [facility] [place] [facility] [address] [id number] [place] [address]- 8935 Dec, [facility] [place] [facility] [address] [id number] [place] [address]- 9636 Nov, [facility] [place] [facility] [address] [id number] [place] [address]- 1345 Nov, [facility] [place] [facility] [address] [id number] [place] [address]- 8606 Oct, [facility] [place] [facility] [address] [id number] [place] [address]- 1376 Oct, [facility] [place] [facility] [address] [id number] [place] [address]- 9454 Mar, [facility] [place] [facility] [address] [id number] [place] [address]- 0566 February, [facility] [place] [facility] [address] [id number] [place] [address]- 6356 February, [facility] [place] [facility] [address] [id number] [place] [address]- 7286 February, [facility] [place] [facility] [address] [id number] [place] [address]- 6816 February, [facility] [place] [facility] [address] [id number] [place] [address]- 0050 February, [facility] [address] [id number] [place] [address]- 2237 February, [facility] [address] [id number] [place] [address]- 2546 February, [facility] [address] [id number] [place] [address]- 8169 Dec, [facility] [address] [id number] [place] [address]- 1577 Dec, [facility] [address] [id number] [place] [address]- 5234 Dec, [facility] [address] [id number] [place] [address]- 3873 Nov, [facility] [address] [id number] [place] [address]- 4785 Nov, [facility] [address] [id number] [place] [address]- 0161 Nov, [facility] [address] [id number] [address]- 5509 Nov, [facility] [address] [facility] [id number] [place] [address]- 2407 Nov, [facility] [address] [id number] [place] [address]- 2675 Nov, [facility] [address] [id number] [place] [address]- 5446 Nov, [facility] [place] [facility] [address] [id number] [place] [address]- 6536 Oct, [facility] [place] [facility] [address] [id number] [place] [address]- 3555 Oct, [facility] [place] [facility] [address] [id number] [place] [address]- 9772 Oct, [facility] [place] [facility] [address] [id number] [place] [address]- 4654 Oct, [facility] [place] [facility] [address] [id number] [place] [address]- 0656 Oct, [facility] [place] [facility] [address] [facility] [id number] [place] [address]- 0307 Sep, [facility] [place] [facility] [address] [id number] [place] [address]- 5526 Sep, [facility] [place] [facility] [address] [id number] [place] [address]- 6980 Aug, [facility] [place] [facility] [address] [id number] [place] [address]- 6862 Aug, [facility] [place] [facility] [address] [id number] [place] [address]- 0249 Jul, [facility] [place] [facility] [address] [id number] [place] [address]- 3847 Jul, [facility] [place] [facility] [address] [id number] [place] [address]- 7945 Jul, [facility] [place] [facility] [address] [id number] [place] [address]- 8554 Jul, [facility] [place] [facility] [address] [id number], [place] [address]- 6032 Jul, [facility] [place] [facility] [address] [id number], [place] [address]- 3864 Jul, [facility] [place] [facility] [address] [id number] [place] [address]- 5394 Jul, [facility] [place] [facility] [address] [facility] [id number], [place] [address]- 3284 Jul, [facility] [place] [facility] [address] [id number] [place] [address]- 1838 Jun, [facility] [place] [facility] [address] [id number] [place] [address]- 5076 26 Sep, 2011 [facility] [address] [id number] [place] [address] 2546 20 Sep, 2011 [facility] [address] [id number] [place] [address] 2546 19 Sep, 2011 [facility] [address] [id number] [place] [address] 2546 18 Sep, 2011 [facility] [address] [id number] [place] [address] 2546 12 Sep, 2011 [facility] [address] [id number] [place] [address]- 3409 10 Sep, 2011 [facility] [address] [id number] [place] [address]- 2950 07 Sep, 2011 [facility] [address] [id number] [place] [address]- 0833 07 Sep, 2011 [facility] [address] [id number] [place] [address]- 3927 06 Sep, 2011 [facility] [address] [id number] [place] [address]- 3898 05 Sep, 2011 [facility] [address] [id number] [place] [address]- 6332 07 May, 2012 [facility] [address] [id number] [place] [address] 2547 Apr, [facility] [address] [id number] [place] [address]- 254 Aug, [facility] [place] [facility] [address] [id number] [place] [address] 2546 15 Aug, 2010 [facility] [place] [facility] [address] [id number] [place] [address]- 2542 15 Aug, 2010 [facility] [address] [id number] [place] [address]- 8840 09 Aug, 2010 [facility] [place] [facility] [address] [id number] [place] [address]- 3706 Aug, [facility] [place] [facility] [address] [id number] [place] [address]- 7106 Jul, [facility] [place] [facility] [address] [id number] [place] [address]- 0349 Jul, [facility] [place] [facility] [address] [id number] [place] [address] 2546 February, [facility] [place] [facility] [address] [id number] [place] [address] 2546 Nov, [facility] [place] [facility] [address] [id number] [place] [address]- 8606 Nov, [facility] [place] [facility] [address] [id number] [place] [address]- 2074 Oct, [facility] [place] [facility] [address] [id number], [place] [address]- 5790 Sep, [facility] [place] [facility] [address] [id number] [place] [address] 2541 Sep, [facility] [place] [facility] [address] [facility] [id number], [place] [address]- 6082 Sep, [facility] [place] [facility] [address] [id number], [place] [address]- 2543 Sep, [facility] [place] [facility] [address] [id number], [place] [address]- 9838 Sep, [facility] [place] [facility] [address] [id number], [place] [address] 2544 27 Aug, 2009 [facility] [place] [facility] [address] [id number], [place] [address]- 254 Aug, [facility] [place] [facility] [address] [id number], [place] [address] 2549 16 Aug, 2009 [facility] [place] [facility] [address] [id number], [place] [address]- 2546 Aug, [facility] [address] [facility] [id number], [place] [address]- 2546 Aug, [facility] [address] [facility] [id number], [place] [address]- 2546 Jul, [facility] [address] [facility] [id number], [place] [address]- 2546 Jul, [facility] [address] [facility] [id number], [place] [address]- 9646 Jun, IMMUNIZATIONS No Known Immunizations SOCIAL HISTORY Never Assessed REASON FOR VISIT Med change and futer labs PLAN OF CARE VITAL SIGNS MEDICATIONS Medication Instructions Dosage Frequency Start Date End Date Duration Status Levothyroxine Sodium 88 MCG Orally Once a day 1 tablet [...]
[2018-11-08 00:28] LABS: FREE T4 (FREE THYROXINE) 0.52 NG/DL (0.70-1.48)
--- OUTSIDE RECORDS SUMMARY | 2018-11-08 00:28 | XMS REPORT ---
Author Author BRUCE FELDMAN [facility] WALK IN 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 Name Role Phone BRUCE FELDMAN Unavailable PROBLEMS Type Condition ICD9-CM Code WOI64-FY Code Onset Dates Condition Status SNOMED Code Problem Elevated blood pressure I10 Active 62503905 Problem Hypercholesteremia E78.00 Active 04690922 Problem Sciatica of right side M54.31 Active 83879664 Problem Type 2 diabetes mellitus with hyperglycemia, without long-term current use of insulin E11.65 Active 45845393 Problem Headache R51 Active 63478413 Problem Acquired hypothyroidism E03.9 Active 115210622 Problem Body mass index (BMI) of 32.0-32.9 in adult Z68.32 Active 211632004 Problem Other obesity due to excess calories E66.09 Active 377405505 ALLERGIES Substance Reaction Event Type Date Status Penicillin V Potassium Unknown Drug Allergy Apr, Active ENCOUNTERS Encounter Location Date Diagnosis [facility] [id number] [place] [address] 70332- 6190 May, Acquired hypothyroidism E03.9 [facility] [id number] [place] [address] 51905- 9633 May, Type 2 diabetes mellitus with hyperglycemia, without long- term current use of insulin E11.65 ; Acquired hypothyroidism E03.9 and Hypercholesteremia E78.00 [facility] [id number] [place] [address] 41780 -6463 Apr, Sciatica of right side M54.31 [facility] [id number] [place] [address] 25288- 4864 Jan, Type 2 diabetes mellitus with hyperglycemia, without long- term current use of insulin E11.65 ; Acquired hypothyroidism E03.9 ; Hypercholesteremia E78.00 ; [place] cardiac risk <10% in next 10 years Z91.89 ; Other obesity due to excess calories E66.09 and Body mass index (BMI) of 32.0-32.9 in adult Z68.32 [facility] [id number] [place] [address] 31936- 4654 Dec, [place] [facility] [address] 11722- 1877 Dec, Acquired hypothyroidism E03.9 [facility] [address] 37423- 5954 Dec, Type 2 diabetes mellitus with hyperglycemia, without long- term current use of insulin E11.65 ; Acquired hypothyroidism E03.9 ; Elevated blood pressure I10 and Other obesity due to excess calories E66.09 [facility] [id number] [place] [address] 42544- 7070 Dec, Type 2 diabetes mellitus with hyperglycemia, without long- term current use of insulin E11.65 ; Acquired hypothyroidism E03.9 ; Elevated blood pressure I10 ; Dysuria R30.0 ; Dizziness R42 ; Acute cystitis with hematuria N30.01 ; Headache R51 ; Other obesity due to excess calories E66.09 and Body mass index (BMI) of 32.0-32.9 in adult Z68.32 [facility] [id number] [place] [address] 45857 -6169 Mar, Foot pain, left M79.672 [facility] [id number] [place] [address] 80257- 6283 Dec, Hypothyroidism E03.9 [facility] [id number] [place] [address] 15860- 0406 Dec, Acquired hypothyroidism E03.9 ; Elevated blood pressure I10 and Headache R51 [facility] [id number] [place] [address] 23238- 6729 Sep, Bone spur M77.9 [facility] [address] 0[address]73- 9356 14 Sep, 2015 Hypothyroidism E03.9 [facility] [id number] [place] [address] 74787- 9559 Sep, Pain in right foot M79.671 [facility] [id number] [place] [address] 84696- 8841 Sep, Hypothyroidism E03.9 [facility] [address] 17334- 7785 Sep, Hypothyroidism E03.9 [facility] [id number] [place] [address] 03866- 8132 04 Sep, 2015 Pain in right foot M79.671 and Hypothyroidism E03.9 [facility] [id number] [place] [address] 81806- 4917 Jun, Hypothyroidism 244.9 and History of blurry vision V12.49 [facility] [id number] [place] [address] 14911- 8794 May, Nexplanon removal V25.43 and Initiation of OCP (BCP) V25.01 [place] [id number] [place] [address] 64993- 1188 Apr, [facility] [id number] [place] [address] 28222- 9520 Apr, Hypothyroidism 244.9 and Constipation 564.00 [facility] [id number] [place] [address] 62002- 2882 Mar, [facility] [id number] [place] [address] 77172- 7536 Mar, [facility] [address] 53945- 4896 Mar, Unspecified hypothyroidism 244.9 [facility] [id number] [place] [address] 33781- 5967 Mar, Unspecified hypothyroidism 244.9 [facility] [id number] [place] [address] 5769 Mar, Unspecified hypothyroidism 244.9 [facility] [place] [facility] [address] [id number] [place] [address]- 0712 14 Jan, 2015 [facility] [place] [facility] [address] [id number] [place] [address]- 9699 Jan, [facility] [place] [facility] [address] [id number] [place] [address]- 0853 Nov, [facility] [place] [facility] [address] [id number] [place] [address]- 9896 Nov, [facility] [place] [facility] [address] [id number] [place] [address]- 8346 Oct, [facility] [place] [facility] [address] [facility] [id number] [place] [address]- 1803 Oct, [facility] [address] [facility] [id number] [place] [address]- 0442 Oct, [facility] [place] [facility] [address] [id number] [place] [address]- 9425 Oct, [facility] [place] [facility] [address] [facility] [id number] [place] [address]- 4774 Oct, [facility] [place] [facility] [address] [facility] [id number] [place] [address]- 9287 Oct, [facility] [place] [facility] [address] [facility] [id number], [place] [address]- 3491 Oct, [facility] [place] [facility] [address] [id number] [place] [address]- 1520 Oct, [facility] [place] [facility] [address] [facility] [id number] [place] [address]- 4935 Oct, [facility] [place] [facility] [address] [id number] [place] [address]- 8107 February, [facility] [place] [facility] [address] [id number] [place] [address]- 8000 February, [facility] [place] [facility] [address] [id number] [place] [address]- 0498 Dec, [facility] [place] [facility] [address] [id number] [place] [address]- 7166 Dec, [facility] [place] [facility] [address] [id number] [place] [address]- 3411 Dec, [facility] [place] [facility] [address] [id number] [place] [address]- 9670 Dec, [facility] [place] [facility] [address] [id number] [place] [address]- 5746 Nov, [facility] [place] [facility] [address] [id number] [place] [address]- 9416 Nov, [facility] [place] [facility] [address] [id number] [place] [address]- 2476 Oct, [facility] [place] [facility] [address] [id number] [place] [address]- 9250 Oct, [facility] [place] [facility] [address] [id number] [place] [address]- 3717 Mar, [facility] [place] [facility] [address] [id number] [place] [address]- 9166 February, [facility] [place] [facility] [address] [id number] [place] [address]- 1556 February, [facility] [place] [facility] [address] [id number] [place] [address]- 9006 February, [facility] [place] [facility] [address] [id number] [place] [address]- 9906 February, [facility] [place] [facility] [address] [id number] [place] [address]- 6186 February, [facility] [place] [facility] [address] [id number] [place] [address] 2546 February, [facility] [place] [facility] [address] [id number] [place] [address]- 5939 February, [facility] [address] [id number] [place] [address]- 7711 Dec, [facility] [place] [facility] [address] [id number] [place] [address] 2546 Dec, [facility] [address] [id number] [place] [address]- 7589 Dec, [facility] [address] [id number] [place] [address]- 0207 Nov, [facility] [address] [id number] [place] [address]- 9695 Nov, [facility] [address] [id number] [place] [address]- 9830 Nov, [facility] [address] [id number] [place] [address]- 9071 Nov, [facility] [address] [id number] [place] [address]- 2595 Nov, [facility] [address] [id number] [place] [address]- 4869 Nov, [facility] [address] [id number] [place] [address]- 9480 Nov, [facility] [address] [id number] [place] [address]- 3957 Oct, [facility] [place] [facility] [address] [id number] [place] [address]- 2139 Oct, [facility] [place] [facility] [address] [id number] [place] [address] 2549 Oct, [facility] [place] [facility] [address] [id number] [place] [address]- 1398 Oct, [facility] [place] [facility] [address] [id number], [place] [address]- 1306 Oct, [facility] [place] [facility] [address] [id number] [place] [address]- 4120 Sep, [facility] [place] [facility] [address] [id number] [place] [address]- 3460 Sep, [facility] [place] [facility] [address] [facility] [id number] [place] [address]- 7980 Aug, [facility] [place] [facility] [address] [id number] [place] [address]- 8177 Aug, [facility] [place] [facility] [address] [id number] [place] [address]- 8195 Jul, [facility] [place] [facility] [address] [id number] [place] [address]- 8475 Jul, [facility] [place] [facility] [address] [id number] [place] [address]- 3061 Jul, [facility] [place] [facility] [address] [id number] [place] [address]- 6590 Jul, [facility] [place] [facility] [address] [id number] [place] [address]- 5972 Jul, [facility] [place] [facility] [address] [facility] [id number] [place] [address]- 2574 Jul, [facility] [place] [facility] [address] [id number], [place] [address]- 5423 Jul, [facility] [place] [facility] [address] [id number], [place] [address]- 9261 Jul, [facility] [place] [facility] [address] [id number] [place] [address]- 3473 27 Jun, 2012 [facility] [place] [facility] [address] [facility] [id number] [place] [address]- 9157 26 Jun, 2012 [facility] [place] [facility] [address] [facility] [id number] [place] 6744 20 Jun, 2012 [facility] [place] [facility] [address] [id number] [place] [address]- 2479 19 Sep, 2011 [facility] [address] [id number] [place] [address] 2546 18 Sep, 2011 [facility] [place] [facility] [address] [id number] [place] [address]- 2546 12 Sep, 2011 [facility] [address] [id number] [place] [address]- 1256 10 Sep, 2011 [facility] [place] [facility] [address] [id number] [place] [address] 2543 07 Sep, 2011 [facility] [address] [id number] [place] [address]- 9413 07 Sep, 2011 [facility] [address] [id number] [place] [address]- 2440 06 Sep, 2011 [facility] [address] [id number] [place] [address]- 7022 05 Sep, 2011 [facility] [address] [id number] [place] [address]- 3132 07 May, 2012 [facility] [address] [id number] [place] [address]- 5488 Apr, [facility] [address] [id number] [place] [address]- 8881 23 Aug, 2010 [facility] [place] [facility] [address] [id number] [place] [address] 2546 15 Aug, 2010 [facility] [address] [id number] [place] [address]- 2542 15 Aug, 2010 [facility] [place] [facility] [address] [id number] [place] [address]- 7763 09 Aug, 2010 [facility] [place] [facility] [address] [id number] [place] [address]- 2546 04 Aug, 2010 [facility] [place] [facility] [address] [id number] [place] [address]- 5551 Jul, [facility] [address] [id number] [place] [address]- 1180 Jul, [facility] [place] [facility] [address] [id number] [place] [address]- 2326 February, [facility] [place] [facility] [address] [id number] [place] [address] 2546 Nov, [facility] [place] [facility] [address] [id number] [place] [address] 2546 Nov, [facility] [place] [facility] [address] [id number] [place] [address]- 5036 Oct, [facility] [place] [facility] [address] [id number] [place] [address]- 5896 Sep, [facility] [place] [facility] [address] [id number] [place] [address]- 0146 Sep, [facility] [place] [facility] [address] [id number], [place] [address]- 2437 Sep, [facility] [place] [facility] [address] [id number] [place] [address]- 1367 Sep, [facility] [place] [facility] [address] [facility] [id number], [place] [address]- 9981 Sep, [facility] [place] [facility] [address] [id number], [place] [address] 2546 27 Aug, 2009 [facility] [place] [facility] [address] [id number], [place] [address] 2546 20 Aug, 2009 [facility] [place] [facility] [address] [id number] [place] [address] 2546 16 Aug, 2009 [facility] [place] [facility] [address] [id number], [place] [address] 2546 12 Aug, 2009 [facility] [place] [facility] [address] [id number], [place] [address] 2546 12 Aug, 2009 [facility] [place] [facility] [address] [id number] [place] [address]- 8362 Jul, [facility] [address] [facility] [id number] [place] [address]- 9128 Jul, [facility] [address] [facility] [id number] [place] [address]- 6418 Jun, IMMUNIZATIONS No Known Immunizations SOCIAL HISTORY Never Assessed REASON FOR VISIT burning pain in right leg/left hand started last night JStrasserRN PLAN OF CARE Activity Details Follow Up prn Reason: VITAL SIGNS Height 60 in 2018-05-02 Weight 170.0 lbs 2018-05-02 Temperature 98.4 degrees Fahrenheit 2018-05-02 Heart Rate 68 bpm 2018-05-02 Respiratory Rate 20 2018-05-02 BMI 33.20 kg/m2 2018-05-02 Blood pressure systolic 116 mmHg 2018-05-02 Blood pressure diastolic 80 mmHg 2018-05-02 MEDICATIONS Medication Instructions Dosage Frequency Start Date End Date Duration Status Glucocard Expression Test 1 subcutaneously 2 times a day test blood sugar twice daily 12h Dec, Active PredniSONE 20 MG Orally 3 tablets x 3 days, followed by 2 tablets x 3 days, followed by 1 tablet x 3 days. as directed Apr, Apr, 9 days Active Atorvastatin Calcium 20 mg Orally Once a day 1 tablet 24h Dec, Active Lisinopril 5 mg Orally Once a day 1 tablet 24h Dec, Active Levothyroxine Sodium 25 MCG Orally Once a day 1 tablet on an empty stomach in the morning 24h Dec, Active Naproxen 500 MG Orally every 12 hrs 1 tablet with food or milk as needed 12h Apr, Apr, 10 days Active MetFORMIN HCl ER 500 mg Orally Once a day 1 tablet with evening meal 24h Dec, 90 days Active RESULTS No Results PROCEDURES No Known procedures INSTRUCTIONS MEDICATIONS ADMINISTERED No Known Medications MEDICAL (GENERAL) HISTORY Type Description Date Medical History HYPOTHYROID Medical History ARTHRITIS Medical History MARQUEZ Medical History gestational diabetes with last two pregnancies Surgical History C SECTION X1 Surgical History Left thumb surgery Hospitalization History Childbirth
--- OUTSIDE RECORDS SUMMARY | 2018-11-08 00:28 | XMS REPORT ---
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 Name Role Phone DREWBLANKALEN Unavailable PROBLEMS Type Condition ICD9-CM Code VGN45-IO Code Onset Dates Condition Status SNOMED Code Problem Elevated blood pressure I10 Active 13559605 Problem Hypercholesteremia E78.00 Active 47217067 Problem Sciatica of right side M54.31 Active 23467602 Problem Type 2 diabetes mellitus with hyperglycemia, without long-term current use of insulin E11.65 Active 40231112 Problem Headache R51 Active 89546776 Problem Acquired hypothyroidism E03.9 Active 679345475 Problem Body mass index (BMI) of 32.0-32.9 in adult Z68.32 Active 334293077 Problem Other obesity due to excess calories E66.09 Active 282725621 ALLERGIES Substance Reaction Event Type Date Status Penicillin V Potassium Unknown Drug Allergy May, Active Lisinopril cough Drug Allergy May, Active ENCOUNTERS Encounter Location Date Diagnosis [facility] [id number] [place] [address] 41571- 1564 May, Acquired hypothyroidism E03.9 [facility] [id number] [place] [address] 14472- 9555 May, Type 2 diabetes mellitus with hyperglycemia, without long- term current use of insulin E11.65 ; Acquired hypothyroidism E03.9 and Hypercholesteremia E78.00 [facility] [address] [address] Apr, Sciatica of right side M54.31 [facility] [id number] [place] [address] 44504- 8767 Jan, Type 2 diabetes mellitus with hyperglycemia, without long- term current use of insulin E11.65 ; Acquired hypothyroidism E03.9 ; Hypercholesteremia E78.00 ; [place] cardiac risk <10% in next 10 years Z91.89 ; Other obesity due to excess calories E66.09 and Body mass index (BMI) of 32.0-32.9 in adult Z68.32 [facility] [facility] [id number] [place] [address] 13758- 3923 Dec, [place] [facility] [id number] [place] [address] 01560- 5182 Dec, Acquired hypothyroidism E03.9 [place] [facility] [id number] [place] [address] 67455- 9731 Dec, Type 2 diabetes mellitus with hyperglycemia, without long- term current use of insulin E11.65 ; Acquired hypothyroidism E03.9 ; Elevated blood pressure I10 and Other obesity due to excess calories E66.09 [place] [facility] [id number] [place] [address] 40680- 3140 Dec, Type 2 diabetes mellitus with hyperglycemia, without long- term current use of insulin E11.65 ; Acquired hypothyroidism E03.9 ; Elevated blood pressure I10 ; Dysuria R30.0 ; Dizziness R42 ; Acute cystitis with hematuria N30.01 ; Headache R51 ; Other obesity due to excess calories E66.09 and Body mass index (BMI) of 32.0-32.9 in adult Z68.32 [facility] [id number] [place] [address]31 -4382 Mar, Foot pain, left M79.672 [facility] [id number] [place] [address] 70959- 2234 Dec, Hypothyroidism E03.9 [place] [id number] [place] [address] 38457- 9595 Dec, Acquired hypothyroidism E03.9 ; Elevated blood pressure I10 and Headache R51 [facility] [id number] [place] [address] 48476- 0953 Sep, Bone spur M77.9 [place] [id number] [place] [address] 8533 14 Sep, 2015 Hypothyroidism E03.9 [facility] [address] [address]- 0836 Sep, Pain in right foot M79.671 [facility] [address] 90064- 4480 Sep, Hypothyroidism E03.9 [facility] [address] 77731- 0454 Sep, Hypothyroidism E03.9 [facility] [address] 98226- 0097 04 Sep, 2015 Pain in right foot M79.671 and Hypothyroidism E03.9 [facility] [address] 03948- 9398 18 Jun, 2015 Hypothyroidism 244.9 and History of blurry vision V12.49 [facility] [address] 16191- 7166 May, Nexplanon removal V25.43 and Initiation of OCP (BCP) V25.01 [facility] [address] 7[address]- 3584 Apr, [facility] [address] 74271- 2478 Apr, Hypothyroidism 244.9 and Constipation 564.00 [facility] [id number] [place] [address] 14359- 2564 Mar, [facility] [address] 83862- 6288 Mar, [facility] [address] 32801- 0968 Mar, Unspecified hypothyroidism 244.9 [facility] [address] 46669- 0646 Mar, Unspecified hypothyroidism 244.9 [facility] [address] [id number] [address] 27[address] 16 Mar, 2015 Unspecified hypothyroidism 244.9 [facility] [address] [id number] [place] [address]- 0963 14 Jan, 2015 [facility] [address] [facility] [id number] [place] [address] 5109 Jan, [facility] [address] [facility] [id number] [address] 3592 Nov, [facility] [address] [facility] [id number] [place] [address]- 6594 Nov, [facility] [address] [id number] [address] 5627 Oct, [facility] [address] [address] 3766 Oct, [facility] [address] [facility] [id number] [address] 6206 Oct, [facility] [address] [id number] [address] 8847 Oct, [facility] [address] [id number] [address]- 0623 Oct, [facility] [address] [address]- 8024 Oct, [facility] [address] [facility] [id number] [place] [address]- 4271 Oct, [facility] [address] [facility] [id number] [place] [address]- 9260 Oct, [facility] [address] [facility] [id number] [place] [address]- 7929 Oct, [facility] [place] [facility] [id number] [place] [address]- 8060 February, [facility] [address] [facility] [id number] [place] [address]- 5536 February, [facility] [address] [id number] [place] [address]- 1726 Dec, [facility] [place] [facility] [address] [id number] [place] [address]- 6159 Dec, [facility] [address] [id number] [place] [address]- 9576 Dec, [facility] [place] [facility] [address] [id number] [place] [address]- 3497 Dec, [facility] [address] [id number] [place] [address]- 3228 Nov, [facility] [place] [facility] [address] [id number] [place] [address] 2546 Nov, [facility] [address] [id number] [place] [address]- 7367 Oct, [facility] [address] [id number] [place] [address]- 8453 Oct, [facility] [address] [id number] [place] [address]- 8718 Mar, [facility] [address] [id number] [place] [address]- 0291 February, [facility] [address] [id number] [place] [address]- 6436 February, [facility] [address] [id number] [place] [address] 2546 February, [facility] [place] [facility] [address] [id number] [place] [address]- 6306 February, [facility] [place] [facility] [address] [id number] [place] [address]- 2546 February, [facility] [place] [facility] [address] [id number] [place] [address] 2546 February, [facility] [place] [facility] [address] [id number] [place] [address]- 2154 February, [facility] [address] [id number] [place] [address]- 4746 Dec, [facility] [address] [id number] [place] [address]- 8155 Dec, [facility] [place] [facility] [address] [id number] [place] [address]- 0099 Dec, [facility] [address] [id number] [place] [address]- 8780 Nov, [facility] [place] [facility] [address] [id number] [place] [address]- 7211 Nov, [facility] [address] [id number] [place] [address]- 0751 Nov, [facility] [address] [id number] [place] [address]- 3240 Nov, [facility] [address] [id number] [place] [address]- 5461 Nov, [facility] [address] [id number] [place] [address]- 9060 Nov, [facility] [address] [id number] [place] [address]- 4898 Nov, [facility] [place] [facility] [address] [id number] [address]- 8983 Oct, [facility] [place] [facility] [address] [id number] [place] [address]- 4995 Oct, [facility] [place] [facility] [address] [id number] [place] [address]- 1575 16 Oct, 2012 [facility] [place] [facility] [address] [id number] [place] [address] 2546 Oct, [facility] [place] [facility] [address] [id number] [place] [address]- 6274 Oct, [facility] [place] [facility] [address] [id number] [place] [address]792 Sep, [facility] [place] [facility] [address] [id number] [place] [address] Sep, [facility] [place] [facility] [address] [id number] [place] [address]- 2420 Aug, [facility] [place] [facility] [address] [id number] [place] [address]- 7191 Aug, [facility] [place] [facility] [address] [id number] [place] [address]- 5215 Jul, [facility] [place] [facility] [address] [id number] [place] [address]- 4099 Jul, [facility] [place] [facility] [address] [id number] [place] [address]- 5770 Jul, [facility] [place] [facility] [address] [id number] [place] [address]- 6957 Jul, [facility] [place] [facility] [address] [id number] [place] [address]- 7696 Jul, [facility] [place] [facility] [address] [facility] [id number] [place] [address]- 0565 Jul, [facility] [place] [facility] [address] [id number] [place] [address]- 0436 05 Jul, 2012 [facility] [place] [facility] [address] [id number] [place] [address]- 7655 Jul, [facility] [place] [facility] [address] [id number] [place] [address]- 0209 27 Jun, 2012 [facility] [place] [facility] [address] [id number] [place] [address]- 5003 26 Jun, 2012 [facility] [place] [facility] [address] [id number] [place] [address]- 2546 20 Sep, 2011 [facility] [place] [facility] [address] [id number] [place] [address]- 4944 19 Sep, 2011 [facility] [place] [facility] [address] [id number] [place] [address]- 7780 18 Sep, 2011 [facility] [place] [facility] [address] [id number] [place] [address]- 3685 12 Sep, 2011 [facility] [place] [facility] [address] [id number] [place] [address]- 8050 10 Sep, 2011 [facility] [place] [facility] [address] [id number] [place] [address]- 3415 07 Sep, 2011 [facility] [place] [facility] [address] [id number] [place] [address]- 7676 07 Sep, 2011 [facility] [address] [id number] [place] [address]- 3504 06 Sep, 2011 [facility] [address] [id number] [place] [address]- 2686 05 Sep, 2011 [facility] [place] [facility] [address] [id number] [place] [address]- 8879 07 May, 2012 [facility] [place] [facility] [address] [id number] [place] [address]- 8488 Apr, [facility] [place] [facility] [address] [id number] [place] [address]- 8016 Aug, [facility] [place] [facility] [address] [id number] [place] [address]- 3981 15 Aug, 2010 [facility] [place] [facility] [address] [id number] [place] [address]- 0509 15 Aug, 2010 [facility] [place] [facility] [address] [id number] [place] [address]- 0600 Aug, [facility] [place] [facility] [address] [id number] [place] [address]- 2144 04 Aug, 2010 [facility] [place] [facility] [address] [id number] [place] [address]- 9446 Jul, [facility] [address] [id number] [place] [address]- 9534 Jul, [facility] [place] [facility] [address] [id number] [place] [address]- 8286 February, [facility] [address] [facility] [id number] [place] [address]- 1866 Nov, [facility] [place] [facility] [address] [id number] [place] [address] 2540 Nov, [facility] [address] [id number] [place] [address]- 2502 Oct, [facility] [address] [facility] [id number] [place] [address]- 9642 29 Sep, 2009 [facility] [address] [facility] [id number] [place] [address]- 5181 Sep, [facility] [place] [facility] [address] [facility] [id number] [place] [address]- 0203 Sep, [facility] [address] [facility] [id number] [place] [address]- 6840 Sep, [facility] [place] [facility] [address] [facility] [id number] [place] [address]- 8185 Sep, [facility] [address] [facility] [id number] [place] [address]- 4146 27 Aug, 2009 [facility] [place] [facility] [address] [id number] [place] [address]- 2545 20 Aug, 2009 [facility] [place] [facility] [address] [facility] [id number] [place] [address]- 0639 16 Aug, 2009 [facility] [place] [facility] [address] [facility] [id number] [place] [address]- 0183 12 Aug, 2009 [facility] [place] [facility] [address] [facility] [id number] [place] [address]- 5467 12 Aug, 2009 [facility] [place] [facility] [address] [facility] [id number] [place] [address]- 0666 Jul, [facility] [address] [facility] [id number] [place] [address]- 9863 Jul, [facility] [address] [facility] [id number] [place] [address]- 2765 Jun, IMMUNIZATIONS No Known Immunizations SOCIAL HISTORY Never Assessed REASON FOR VISIT dm -- sandro win, A1C PLAN OF CARE Activity Details Follow Up 3 Months, prn Reason:CHM/DM VITAL SIGNS Height 60 in 2018-06-03 Weight 168 lbs 2018-06-03 Temperature 97.1 degrees Fahrenheit 2018-06-03 Heart Rate 68 bpm 2018-06-03 Respiratory Rate 18 2018-06-03 BMI 32.81 kg/m2 2018-06-03 Blood pressure systolic 122 mmHg 2018-06-03 Blood pressure diastolic 66 mmHg 2018-06-03 MEDICATIONS Medication Instructions Dosage Frequency Start Date End Date Duration Status Glucocard Expression Test 1 subcutaneously 2 times a day test blood sugar twice daily 12h Dec, Active Atorvastatin Calcium 20 mg Orally Once a day 1 tablet 24h Dec, 90 days Active Levothyroxine Sodium 25 MCG Orally Once a day 1 tablet on an empty stomach in the morning 24h Dec, 90 days Active MetFORMIN HCl ER 500 mg Orally Once a day 1 tablet with evening meal 24h Dec, 90 days Active RESULTS No Results PROCEDURES Procedure Date Ordered Result Body Site GLYCATED HEMOGLOBIN TEST Jun 03, 2018 ASSAY THYROID STIM HORMONE Jun 03, 2018 VENIPUNCT, ROUTINE* Jun 03, 2018 INSTRUCTIONS MEDICATIONS ADMINISTERED No Known Medications MEDICAL (GENERAL) HISTORY Type Description Date Medical History HYPOTHYROID Medical History ARTHRITIS Medical History MARQUEZ Medical History gestational diabetes with last two pregnancies Surgical History C SECTION X1 Surgical History Left thumb surgery Hospitalization History Childbirth
--- OUTSIDE RECORDS SUMMARY | 2018-11-08 00:28 | XMS REPORT ---
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 Name Role Phone DREW ALEN Unavailable PROBLEMS Type Condition ICD9-CM Code ZAW02-JD Code Onset Dates Condition Status SNOMED Code Problem Elevated blood pressure I10 Active 94261317 Problem Hypercholesteremia E78.00 Active 74406492 Problem Sciatica of right side M54.31 Active 30324120 Problem Type 2 diabetes mellitus with hyperglycemia, without long-term current use of insulin E11.65 Active 18432175 Problem Headache R51 Active 43042491 Problem Acquired hypothyroidism E03.9 Active 186478196 Problem Body mass index (BMI) of 32.0-32.9 in adult Z68.32 Active 247882155 Problem Other obesity due to excess calories E66.09 Active 431277064 ALLERGIES Substance Reaction Event Type Date Status Penicillin V Potassium Unknown Drug Allergy Jan, Active ENCOUNTERS Encounter Location Date Diagnosis [facility] [id number] [place] [address] 07384- 0368 May, [facility] [id number] [place] [address] 29818 -5618 Apr, Sciatica of right side M54.31 [facility] [address] [address]- [address] Jan, Type 2 diabetes mellitus with hyperglycemia, without long- term current use of insulin E11.65 ; Acquired hypothyroidism E03.9 ; Hypercholesteremia E78.00 ; [place] cardiac risk <10% in next 10 years Z91.89 ; Other obesity due to excess calories E66.09 and Body mass index (BMI) of 32.0-32.9 in adult Z68.32 [facility] [id number] [place] [address] 10200- 0406 15 Dec, 2017 [place] [id number] [place] [address] 00386- 2296 15 Dec, 2017 Acquired hypothyroidism E03.9 [facility] [id number] [place] [address] 72252- 6210 12 Dec, 2017 Type 2 diabetes mellitus with hyperglycemia, without long- term current use of insulin E11.65 ; Acquired hypothyroidism E03.9 ; Elevated blood pressure I10 and Other obesity due to excess calories E66.09 [place] [id number] [place] [address] 03597- 8943 09 Dec, 2017 Type 2 diabetes mellitus with hyperglycemia, without long- term current use of insulin E11.65 ; Acquired hypothyroidism E03.9 ; Elevated blood pressure I10 ; Dysuria R30.0 ; Dizziness R42 ; Acute cystitis with hematuria N30.01 ; Headache R51 ; Other obesity due to excess calories E66.09 and Body mass index (BMI) of 32.0-32.9 in adult Z68.32 [facility] [id number] [place] [address] 54071 -2079 Mar, Foot pain, left M79.672 [place] [id number] [place] [address] 13616- 3682 Dec, Hypothyroidism E03.9 [place] [id number] [place] [address] 29941- 8312 15 Dec, 2015 Acquired hypothyroidism E03.9 ; Elevated blood pressure I10 and Headache R51 [place] [id number] [place] [address] 70876- 1383 Sep, Bone spur M77.9 [facility] [address] [address]- 1716 14 Sep, 2015 Hypothyroidism E03.9 [place] [id number] [place] [address] 83354- 2070 Sep, Pain in right foot M79.671 [place] [address] 41626- 8443 Sep, Hypothyroidism E03.9 [facility] [id number] [place] [address] 28683- 1016 Sep, Hypothyroidism E03.9 [facility] [id number] [place] [address] 42590- 2435 Sep, Pain in right foot M79.671 and Hypothyroidism E03.9 [facility] [id number] [place] [address] 66728- 3850 18 Jun, 2015 Hypothyroidism 244.9 and History of blurry vision V12.49 [facility] [address] 58577- 9357 May, Nexplanon removal V25.43 and Initiation of OCP (BCP) V25.01 [facility] [id number] [place] [address] 64645- 1534 Apr, [facility] [id number] [place] [address] 19974- 7902 Apr, Hypothyroidism 244.9 and Constipation 564.00 [facility] [id number] [place] [address] 66293- 6572 Mar, [facility] [id number] [place] [address] 57941- 6509 Mar, [facility] [id number] [place] [address] 45118- 1634 Mar, Unspecified hypothyroidism 244.9 [facility] [id number] [place] [address] 46158- 9880 Mar, Unspecified hypothyroidism 244.9 [facility] [id number] [place] [address] 03367- 5245 Mar, Unspecified hypothyroidism 244.9 [facility] [id number] [place] [address] 72009- 3795 Jan, [facility] [address] [place] [address]- 9826 Jan, [facility] [place] [facility] [address] [id number] [place] [address] 6829 Nov, [facility] [place] [facility] [address] [id number] [place] [address]- 7142 Nov, [facility] [place] [facility] [address] [id number] [place] [address]- 5708 Oct, [facility] [place] [facility] [address] [id number] [place] [address]- 5096 Oct, [facility] [place] [facility] [address] [id number] [place] [address]- 4719 Oct, [facility] [place] [facility] [address] [id number] [place] [address]- 0658 Oct, [facility] [place] [facility] [address] [id number] [place] [address]- 0755 Oct, [facility] [place] [facility] [address] [id number] [place] [address]- 4198 Oct, [facility] [place] [facility] [address] [id number] [place] [address]- 4839 Oct, [facility] [place] [facility] [address] [id number] [place] [address]- 8086 Oct, [facility] [place] [facility] [address] [id number] [place] [address]- 8109 Oct, [facility] [place] [facility] [address] [id number] [place] [address]- 0080 February, [facility] [place] [facility] [address] [id number] [place] [address]- 8653 February, [facility] [place] [facility] [address] [id number] [place] [address]- 3823 Dec, [facility] [place] [facility] [address] [id number] [place] [address]- 3211 Dec, [facility] [place] [facility] [address] [id number] [place] [address]- 9190 Dec, [facility] [address] [id number] [place] [address]- 8473 Dec, [facility] [address] [id number] [place] [address]- 1426 Nov, [facility] [address] [id number] [place] [address]- 4233 Nov, [facility] [address] [id number] [place] [address]- 2126 Oct, [facility] [address] [id number] [place] [address]- 5700 Oct, [facility] [address] [id number] [place] [address]- 2519 Mar, [facility] [address] [id number] [place] [address]- 0538 February, [facility] [address] [id number] [place] [address]- 6927 February, [facility] [address] [id number] [place] [address]- 4291 February, [facility] [address] [id number] [place] [address]- 5364 February, [facility] [address] [id number] [place] [address]- 5270 February, [facility] [address] [id number] [place] [address]- 6226 February, [facility] [place] [facility] [address] [id number] [place] [address]- 6576 February, [facility] [place] [facility] [address] [id number] [place] [address]- 4046 Dec, [facility] [address] [id number] [place] [address]- 8947 08 Dec, 2012 [facility] [address] [id number] [place] [address]- 5461 Dec, [facility] [address] [id number] [place] [address]- 4226 Nov, [facility] [address] [id number] [place] [address]- 0256 Nov, [facility] [address] [id number] [place] [address]- 4398 Nov, [facility] [address] [id number] [place] [address]- 3208 Nov, [facility] [address] [id number] [place] [address]- 8220 Nov, [facility] [address] [id number] [place] [address]- 6314 Nov, [facility] [address] [id number] [place] [address]- 5370 Nov, [facility] [address] [id number] [place] [address]- 2003 Oct, [facility] [address] [id number] [place] [address]- 6737 Oct, [facility] [address] [id number] [place] [address]- 8321 Oct, [facility] [address] [id number] [place] [address]- 2373 Oct, [facility] [place] [facility] [address] [id number] [place] [address]- 8134 Oct, [facility] [place] [facility] [address] [id number] [place] [address]- 9571 Sep, [facility] [address] [id number] [place] [address]- 4037 Sep, [facility] [place] [facility] [address] [id number] [place] [address]- 6208 Aug, [facility] [place] [facility] [address] [id number] [place] [address]- 4581 Aug, [facility] [place] [facility] [address] [id number] [place] [address]- 5214 Jul, [facility] [place] [facility] [address] [id number] [place] [address], [place] [address]- 9336 Jul, [facility] [place] [facility] [address] [id number] [place] [address]- 8285 Jul, [facility] [place] [facility] [address] [id number] [place] [address]- 2775 Jul, [facility] [place] [facility] [address] [facility] [id number] [place] [address]- 3070 Jul, [facility] [place] [facility] [address] [id number] [place] [address]- 9664 Jul, [facility] [place] [facility] [address] [id number] [place] [address]- 8302 Jul, [facility] [place] [facility] [address] [id number] [place] [address]- 8541 Jul, [facility] [place] [facility] [address] [id number] [place] [address]- 6200 27 Jun, 2012 [facility] [place] [facility] [address] [id number], [place] [address]- 0993 26 Jun, 2012 [facility] [place] [facility] [address] [id number] [place] [address]- 9853 20 Jun, 2012 [facility] [place] [facility] [address] [id number] [place] [address]- 5202 19 Jun, 2012 [facility] [place] [facility] [address] [id number] [place] [address]- 2843 18 Jun, 2012 [facility] [place] [facility] [address] [id number], [place] [address]- 0596 12 Jun, 2011 [facility] [place] [facility] [address] [id number] [place] [address]- 1640 10 Jun, 2011 [facility] [place] [facility] [address] [id number] [place] [address]- 9026 07 Jun, 2011 [facility] [place] [facility] [address] [id number] [place] [address]- 9006 07 Jun, 2011 [facility] [place] [facility] [address] [id number] [place] [address] 254 06 Jun, 2011 [facility] [place] [facility] [address] [id number] [place] [address]- 9301 05 Jun, 2011 [facility] [place] [facility] [address] [id number] [place] [address]- 5815 May, [facility] [place] [facility] [address] [id number] [place] [address]- 1854 Apr, [facility] [place] [facility] [address] [id number] [place] [address]- 7843 Aug, [facility] [place] [facility] [address] [id number], [place] [address]- 5560 Aug, [facility] [place] [facility] [address] [id number] [place] [address]- 3644 Aug, [facility] [place] [facility] [address] [id number], [place] [address]- 9858 Aug, [facility] [place] [facility] [address] [id number], [place] [address]- 3166 Aug, [facility] [place] [facility] [address] [id number], [place] [address]- 2491 Jul, [facility] [place] [facility] [address] [id number], [place] [address]- 9491 Jul, [facility] [place] [facility] [address] [id number] [place] [address]- 9393 February, [facility] [place] [facility] [address] [id number] [place] [address]- 4960 19 Nov, 2009 [facility] [address] [id number] [place] [address]- 0716 11 Nov, 2009 [facility] [place] [facility] [address] [id number] [place] [address]- 6356 Oct, [facility] [address] [id number] [place] [address] 2546 29 Sep, 2009 [facility] [place] [facility] [address] [id number] [place] [address] 254 Sep, [facility] [address] [id number] [place] [address]- 8766 Sep, [facility] [place] [facility] [address] [facility] [id number] [place] [address]- 7591 Sep, [facility] [place] [facility] [address] [facility] [id number] [place] [address]- 7728 Sep, [facility] [address] [id number] [place] [address]- 3948 27 Aug, 2009 [facility] [place] [facility] [address] [id number] [place] [address]- 6034 20 Aug, 2009 [facility] [address] [facility] [id number] [place] [address]- 9916 16 Aug, 2009 [facility] [place] [facility] [address] [id number] [place] [address]- 3001 12 Aug, 2009 [facility] [place] [facility] [address] [id number], [place] [address] 2549 12 Aug, 2009 [facility] [place] [facility] [address] [id number] [place] [address] 2546 15 Jul, 2009 [facility] [place] [facility] [address] [facility] [id number] [place] [address]- 2546 15 Jul, 2009 [facility] [place] [facility] [address] [id number] [place] [address]- 2546 Jun, IMMUNIZATIONS No Known Immunizations SOCIAL HISTORY Never Assessed REASON FOR VISIT Diabetes follow up. BERONICA Kirby, Blood glucose runs from 90- 103. Highest its been is 140 x1. PLAN OF CARE Activity Details Follow Up 2 Months Reason:CHM/DM VITAL SIGNS Height 60 in 2018-02-04 Weight 168 lbs 2018-02-04 Temperature 98.1 degrees Fahrenheit 2018-02-04 Heart Rate 64 bpm 2018-02-04 Respiratory Rate 16 2018-02-04 BMI 32.81 kg/m2 2018-02-04 Blood pressure systolic 130 mmHg 2018-02-04 Blood pressure diastolic 78 mmHg 2018-02-04 MEDICATIONS Medication Instructions Dosage Frequency Start Date End Date Duration Status Levothyroxine Sodium 25 MCG Orally Once a day 1 tablet on an empty stomach in the morning 24h Dec, Active Atorvastatin Calcium 20 mg Orally Once a day 1 tablet 24h Dec, Active Glucocard Expression Test 1 subcutaneously 2 times a day test blood sugar twice daily 12h Dec, Active Lisinopril 5 mg Orally Once a day 1 tablet 24h Dec, Active MetFORMIN HCl ER 500 mg Orally [...]
--- OUTSIDE RECORDS SUMMARY | 2018-11-08 00:29 | XMS REPORT ---
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 Name Role Phone DREW ALEN Unavailable PROBLEMS Type Condition ICD9-CM Code [id number]-UP Code Onset Dates Condition Status SNOMED Code Problem Elevated blood pressure I10 Active 47433141 Problem Hypercholesteremia E78.00 Active 69397236 Problem Sciatica of right side M54.31 Active 41198215 Problem Type 2 diabetes mellitus with hyperglycemia, without long-term current use of insulin E11.65 Active 00694241 Problem Headache R51 Active 90872702 Problem Acquired hypothyroidism E03.9 Active 436160910 Problem Body mass index (BMI) of 32.0-32.9 in adult Z68.32 Active 729112762 Problem Other obesity due to excess calories E66.09 Active 201935289 ALLERGIES Substance Reaction Event Type Date Status Penicillin V Potassium Unknown Drug Allergy Dec, Active ENCOUNTERS Encounter Location Date Diagnosis [facility] [place] [id number] [place] [address]365- 7771 Apr, [facility] [id number] [place] [address] 10121 -1421 Apr, Sciatica of right side M54.31 [facility] [place] [id number] [place] [address] 57893- 5089 Jan, Type 2 diabetes mellitus with hyperglycemia, without long- term current use of insulin E11.65 ; Acquired hypothyroidism E03.9 ; Hypercholesteremia E78.00 ; [place] cardiac risk <10% in next 10 years Z91.89 ; Other obesity due to excess calories E66.09 and Body mass index (BMI) of 32.0-32.9 in adult Z68.32 [facility] [place] [id number] [place] [address] 18303- 7258 15 Dec, 2017 [place] [id number] [place] [address] 48292- 6628 15 Dec, 2017 Acquired hypothyroidism E03.9 [facility] [place] [id number] [place] [address] 19763- 3409 12 Dec, 2017 Type 2 diabetes mellitus with hyperglycemia, without long- term current use of insulin E11.65 ; Acquired hypothyroidism E03.9 ; Elevated blood pressure I10 and Other obesity due to excess calories E66.09 [place] [id number] [place] [address] 29263- 5638 09 Dec, 2017 Type 2 diabetes mellitus with hyperglycemia, without long- term current use of insulin E11.65 ; Acquired hypothyroidism E03.9 ; Elevated blood pressure I10 ; Dysuria R30.0 ; Dizziness R42 ; Acute cystitis with hematuria N30.01 ; Headache R51 ; Other obesity due to excess calories E66.09 and Body mass index (BMI) of 32.0-32.9 in adult Z68.32 [facility] [id number] [place] [address] 00464 -5334 Mar, Foot pain, left M79.672 [place] [id number] [place] [address] 49788- 5942 Dec, Hypothyroidism E03.9 [place] [id number] [place] [address] 86104- 4737 15 Dec, 2015 Acquired hypothyroidism E03.9 ; Elevated blood pressure I10 and Headache R51 [place] [id number] [place] [address] 25226- 4109 Sep, Bone spur M77.9 [facility] [place] [address] 39734- 8391 14 Sep, 2015 Hypothyroidism E03.9 [place] [id number] [place] [address] 08153- 8756 Sep, Pain in right foot M79.671 [place] [address] 87071- 3357 Sep, Hypothyroidism E03.9 [facility] [place] [id number] [place] [address] 18774- 4635 Sep, Hypothyroidism E03.9 [facility] [place] [id number] [place] [address] 76623- 4986 Sep, Pain in right foot M79.671 and Hypothyroidism E03.9 [facility] [place] [id number] [place] [address] 70184- 0515 18 Jun, 2015 Hypothyroidism 244.9 and History of blurry vision V12.49 [facility] [place] [address] 10143- 0159 May, Nexplanon removal V25.43 and Initiation of OCP (BCP) V25.01 [facility] [place] [id number] [place] [address] 01749- 4391 Apr, [facility] [place] [id number] [place] [address] 86305- 3121 Apr, Hypothyroidism 244.9 and Constipation 564.00 [facility] [place] [id number] [place] [address] 33503- 0599 Mar, [facility] [place] [id number] [place] [address] 43030- 3566 Mar, [facility] [place] [id number] [place] [address] 45933- 2556 Mar, Unspecified hypothyroidism 244.9 [facility] [place] [id number] [place] [address] 93718- 1372 Mar, Unspecified hypothyroidism 244.9 [facility] [place] [id number] [place] [address] 36509- 9056 Mar, Unspecified hypothyroidism 244.9 [facility] [place] [id number] [place] [address] 10954- 8304 Jan, [facility] [place] [address] [place] [address]- 6229 Jan, [facility] [place] [facility] [address] [id number] [place] [address]- 1582 Nov, [facility] [place] [facility] [address] [id number] [place] [address]- 5866 Nov, [facility] [place] [facility] [address] [id number] [place] [address]- 0387 Oct, [facility] [place] [facility] [address] [id number] [place] [address]- 3665 Oct, [facility] [place] [facility] [address] [id number] [place] [address]- 3486 Oct, [facility] [place] [facility] [address] [id number] [place] [address]- 4885 Oct, [facility] [place] [facility] [address] [id number] [place] [address]- 6828 Oct, [facility] [place] [facility] [address] [id number] [place] [address]- 1758 Oct, [facility] [place] [facility] [address] [id number] [place] [address]- 0066 Oct, [facility] [place] [facility] [address] [id number] [place] [address]- 9594 Oct, [facility] [place] [facility] [address] [id number] [place] [address]- 3564 Oct, [facility] [place] [facility] [address] [id number] [place] [address]- 1985 February, [facility] [place] [facility] [address] [id number] [place] [address]- 8443 February, [facility] [place] [facility] [address] [id number] [place] [address]- 9563 Dec, [facility] [place] [facility] [address] [id number] [place] [address]- 3299 Dec, [facility] [place] [facility] [address] [id number] [place] [address]- 8606 Dec, [facility] [address] [id number] [place] [address]- 6372 Dec, [facility] [address] [id number] [place] [address]- 9034 Nov, [facility] [address] [id number] [place] [address]- 8501 Nov, [facility] [address] [id number] [place] [address]- 1955 Oct, [facility] [address] [id number] [place] [address]- 9743 Oct, [facility] [address] [id number] [place] [address]- 5519 Mar, [facility] [address] [id number] [place] [address]- 7222 February, [facility] [address] [id number] [place] [address]- 0489 February, [facility] [address] [id number] [place] [address]- 9418 February, [facility] [address] [id number] [place] [address]- 7090 February, [facility] [address] [id number] [place] [address]- 9329 February, [facility] [address] [id number] [place] [address]- 6001 February, [facility] [place] [facility] [address] [id number] [place] [address]- 5266 February, [facility] [place] [facility] [address] [id number] [place] [address]- 1846 Dec, [facility] [address] [id number] [place] [address]- 4582 08 Dec, 2012 [facility] [address] [id number] [place] [address]- 5691 Dec, [facility] [address] [id number] [place] [address]- 8816 Nov, [facility] [address] [id number] [place] [address]- 8946 Nov, [facility] [address] [id number] [place] [address]- 1958 Nov, [facility] [address] [id number] [place] [address]- 6506 Nov, [facility] [address] [id number] [place] [address]- 3820 Nov, [facility] [address] [id number] [place] [address]- 3350 Nov, [facility] [address] [id number] [place] [address]- 0119 Nov, [facility] [address] [id number] [place] [address]- 5462 Oct, [facility] [address] [id number] [place] [address]- 5868 Oct, [facility] [address] [id number] [place] [address]- 0584 Oct, [facility] [address] [id number] [place] [address]- 6482 Oct, [facility] [place] [facility] [address] [id number] [place] [address]- 6956 Oct, [facility] [place] [facility] [address] [id number] [place] [address]- 5187 Sep, [facility] [address] [id number] [place] [address]- 9385 Sep, [facility] [place] [facility] [address] [id number] [place] [address]- 7055 Aug, [facility] [place] [facility] [address] [id number] [place] [address]- 6689 Aug, [facility] [place] [facility] [address] [id number] [place] [address]- 7403 Jul, [facility] [place] [facility] [id number] [place] [address], [place] [address]- 9767 Jul, [facility] [place] [facility] [address] [id number] [place] [address]- 7353 Jul, [facility] [place] [facility] [address] [id number] [place] [address]- 5844 Jul, [facility] [place] [facility] [address] [facility] [id number] [place] [address]- 3590 Jul, [facility] [place] [facility] [address] [id number] [place] [address]- 3300 Jul, [facility] [place] [facility] [address] [id number] [place] [address]- 7276 Jul, [facility] [place] [facility] [address] [id number] [place] [address]- 2141 Jul, [facility] [place] [facility] [address] [id number] [place] [address]- 7612 27 Jun, 2012 [facility] [place] [facility] [address] [id number], [place] [address]- 0979 26 Jun, 2012 [facility] [place] [facility] [address] [id number] [place] [address]- 6477 20 Jun, 2012 [facility] [place] [facility] [address] [id number] [place] [address]- 6212 19 Jun, 2012 [facility] [place] [facility] [address] [id number] [place] [address]- 7707 18 Jun, 2012 [facility] [place] [facility] [address] [id number], [place] [address]- 2303 12 Jun, 2011 [facility] [place] [facility] [address] [id number] [place] [address]- 0660 10 Jun, 2011 [facility] [place] [facility] [address] [id number] [place] [address]- 9736 07 Jun, 2011 [facility] [place] [facility] [address] [id number] [place] [address]- 4616 07 Jun, 2011 [facility] [place] [facility] [address] [id number] [place] [address] 2548 06 Jun, 2011 [facility] [place] [facility] [address] [id number] [place] [address]- 3450 05 Jun, 2011 [facility] [place] [facility] [address] [id number] [place] [address]- 7764 May, [facility] [place] [facility] [address] [id number] [place] [address]- 4448 Apr, [facility] [place] [facility] [address] [id number] [place] [address]- 3191 Aug, [facility] [place] [facility] [address] [id number], [place] [address]- 2810 Aug, [facility] [place] [facility] [address] [id number] [place] [address]- 1243 Aug, [facility] [place] [facility] [address] [id number], [place] [address]- 3589 Aug, [facility] [place] [facility] [address] [id number], [place] [address]- 0679 Aug, [facility] [place] [facility] [address] [id number], [place] [address]- 8733 Jul, [facility] [place] [facility] [address] [id number], [place] [address]- 7853 Jul, [facility] [place] [facility] [address] [id number] [place] [address]- 0975 February, [facility] [place] [facility] [address] [id number] [place] [address]- 5309 19 Nov, 2009 [facility] [address] [id number] [place] [address]- 0026 11 Nov, 2009 [facility] [place] [facility] [address] [id number] [place] [address]- 7486 Oct, [facility] [address] [id number] [place] [address] 2546 29 Sep, 2009 [facility] [place] [facility] [address] [id number] [place] [address] 2540 Sep, [facility] [address] [id number] [place] [address]- 0876 Sep, [facility] [place] [facility] [address] [facility] [id number] [place] [address]- 6620 Sep, [facility] [place] [facility] [address] [facility] [id number] [place] [address]- 9972 Sep, [facility] [address] [id number] [place] [address]- 5385 27 Aug, 2009 [facility] [place] [facility] [address] [id number] [place] [address]- 8993 20 Aug, 2009 [facility] [address] [facility] [id number] [place] [address]- 1648 16 Aug, 2009 [facility] [place] [facility] [address] [id number] [place] [address]- 0384 12 Aug, 2009 [facility] [place] [facility] [address] [id number], [place] [address] 2549 12 Aug, 2009 [facility] [place] [facility] [address] [id number] [place] [address] 2546 15 Jul, 2009 [facility] [place] [facility] [address] [facility] [id number] [place] [address]- 2546 15 Jul, 2009 [facility] [place] [facility] [address] [id number] [place] [address]- 2546 Jun, IMMUNIZATIONS No Known Immunizations SOCIAL HISTORY Never Assessed REASON FOR VISIT Establish Care: transition from Bhavesh bradley rn, Headaches and dizziness x 2 months, Difficulty with urination x2 days PLAN OF CARE Activity Details Follow Up 4 Weeks Reason:f/u DM/thyroid VITAL SIGNS Height 60 in 2018-01-04 Weight 167 lbs 2018-01-04 Temperature 98.6 degrees Fahrenheit 2018-01-04 Heart Rate 64 bpm 2018-01-04 Respiratory Rate 20 2018-01-04 Oximetry 98 % 2018-01-04 BMI 32.61 kg/m2 2018-01-04 Blood pressure systolic 142 mmHg 2018-01-04 Blood pressure diastolic 92 mmHg 2018-01-04 MEDICATIONS Medication Instructions Dosage Frequency Start Date End Date Duration Status Ciprofloxacin HCl 500 mg Orally twice a day 1 tablet 12h Dec, Dec, 05 days Active Glucocard Expression Test 1 subcutaneously 2 times a day test blood sugar twice daily 12h Dec, 12 months Active MetFORMIN HCl ER 500 mg Orally Once a day 1 tablet with evening meal 24h Dec, 30 day(s) Active RESULTS Name Result Date Reference Range A1C (IN HOUSE) 2018-01-04 A1C IN HOUSE 7.4 4.3 - 5.6 % Previous A1c Lot [id number] Exp date 08/2019 UA LONG DIP (IN HOUSE) 2018-01-04 Lot # [id number] Exp date 07/2018 Clarity Clear Color yellow Odor none GLU neg MARLENI neg KET neg SG 1.010 BLO 2+ pH .56/ Protein neg URO 0.2 NIT neg GINO 1+ Lot # [id number] Exp date 07/2018 PROCEDURES Procedure Date Ordered Result Body Site GLYCATED HEMOGLOBIN TEST January 04, 2018 URINALYSIS, AUTO, W/O SCOPE January 04, 2018 INSTRUCTIONS MEDICATIONS ADMINISTERED No Known Medications MEDICAL (GENERAL) HISTORY Type Description Date Medical History HYPOTHYROID Medical History ARTHRITIS Medical History MARQUEZ Medical History gestational diabetes with last two pregnancies Surgical History C SECTION X1 Surgical History Left thumb surgery Hospitalization History Childbirth
--- OUTSIDE RECORDS SUMMARY | 2018-11-08 00:29 | XMS REPORT ---
Author Author ALEN RUSSELL Organization [facility] Address [address] [place] [address] Care Team Providers Care Sales And Marketing Manager Name Role Phone DREWBLANKALEN Unavailable PROBLEMS Type Condition ICD9-CM Code ZUI74-TK Code Onset Dates Condition Status SNOMED Code Problem Elevated blood pressure I10 Active 48108580 Problem Hypercholesteremia E78.00 Active 08328953 Problem Sciatica of right side M54.31 Active 67943402 Problem Type 2 diabetes mellitus with hyperglycemia, without long-term current use of insulin E11.65 Active 29226972 Problem Headache R51 Active 21595948 Problem Acquired hypothyroidism E03.9 Active 145761600 Problem Body mass index (BMI) of 32.0-32.9 in adult Z68.32 Active 356428712 Problem Other obesity due to excess calories E66.09 Active [id number] ALLERGIES No Information ENCOUNTERS Encounter Location Date Diagnosis [facility] [id number] [place] [address] 66198- 4661 Apr, [facility] [id number] [place] [address] 59217 -8687 Apr, Sciatica of right side M54.31 [facility] [id number] [place] [address] 43839- 8222 Jan, Type 2 diabetes mellitus with hyperglycemia, without long- term current use of insulin E11.65 ; Acquired hypothyroidism E03.9 ; Hypercholesteremia E78.00 ; [place] cardiac risk <10% in next 10 years Z91.89 ; Other obesity due to excess calories E66.09 and Body mass index (BMI) of 32.0-32.9 in adult Z68.32 [facility] [id number] [place] [address] 76802- 6855 Dec, [facility] [id number] [place] [address] 49531- 7785 15 Dec, 2017 Acquired hypothyroidism E03.9 [place] [id number] [place] [address] 92055- 2163 12 Dec, 2017 Type 2 diabetes mellitus with hyperglycemia, without long- term current use of insulin E11.65 ; Acquired hypothyroidism E03.9 ; Elevated blood pressure I10 and Other obesity due to excess calories E66.09 [place] [address] 31813- 1307 09 Dec, 2017 Type 2 diabetes mellitus with hyperglycemia, without long- term current use of insulin E11.65 ; Acquired hypothyroidism E03.9 ; Elevated blood pressure I10 ; Dysuria R30.0 ; Dizziness R42 ; Acute cystitis with hematuria N30.01 ; Headache R51 ; Other obesity due to excess calories E66.09 and Body mass index (BMI) of 32.0-32.9 in adult Z68.32 [facility] IN [facility] [address] 63[address] -6733 Mar, Foot pain, left M79.672 [place] [id number] [place] [address] 95323- 6515 Dec, Hypothyroidism E03.9 [place] [address] 28302- 2946 15 Dec, 2015 Acquired hypothyroidism E03.9 ; Elevated blood pressure I10 and Headache R51 [place] [id number] [place] [address] 22364- 5349 Sep, Bone spur M77.9 [place] [address] 38905- 1662 14 Sep, 2015 Hypothyroidism E03.9 [place] [id number] [place] [address] 82069- 5122 Sep, Pain in right foot M79.671 [place] [id number] [place] [address] 59219- 0718 Sep, Hypothyroidism E03.9 [facility] [id number] [place] [address] 27554- 8544 Sep, Hypothyroidism E03.9 [facility] [id number] [place] [address] 20051- 5862 Sep, Pain in right foot M79.671 and Hypothyroidism E03.9 [facility] [id number] [place] [address] 98000- 8550 Jun, Hypothyroidism 244.9 and History of blurry vision V12.49 [facility] [address] 51711- 1495 May, Nexplanon removal V25.43 and Initiation of OCP (BCP) V25.01 [facility] [id number] [place] [address] 33000- 0918 Apr, [facility] [address] 59947- 3095 Apr, Hypothyroidism 244.9 and Constipation 564.00 [facility] [id number] [place] [address] 36416- 3105 Mar, [facility] [id number] [place] [address] 27238- 0547 Mar, [facility] [id number] [place] [address] 56103- 7557 Mar, Unspecified hypothyroidism 244.9 [facility] [id number] [place] [address] 44473- 2605 Mar, Unspecified hypothyroidism 244.9 [facility] [id number] [place] [address] 97873- 6347 Mar, Unspecified hypothyroidism 244.9 [facility] [id number] [place] [address] 70385- 6461 Jan, [facility] [id number] [place] [address] 93739- 0236 Jan, [facility] [place] [facility] [address] [id number] [place] [address]- 4232 Nov, [facility] [place] [facility] [address] [id number] [place] [address]- 3836 Nov, [facility] [place] [facility] [address] [id number] [place] [address]- 1381 Oct, [facility] [place] [facility] [address] [id number] [place] [address]- 1033 Oct, [facility] [place] [facility] [address] [id number] [place] [address]- 3390 Oct, [facility] [place] [facility] [address] [id number] [place] [address]- 3015 Oct, [facility] [place] [facility] [address] [id number] [place] [address]- 5566 Oct, [facility] [place] [facility] [address] [id number] [place] [address]- 0571 Oct, [facility] [place] [facility] [address] [id number] [place] [address]- 6688 Oct, [facility] [place] [facility] [address] [id number] [place] [address]- 3297 Oct, [facility] [place] [facility] [address] [id number] [place] [address]- 6545 Oct, [facility] [place] [facility] [address] [id number] [place] [address]- 1729 February, [facility] [place] [facility] [address] [id number] [place] [address]- 7884 February, [facility] [place] [facility] [address] [id number] [place] [address]- 3116 Dec, [facility] [place] [facility] [address] [id number] [place] [address]- 6913 Dec, [facility] [place] [facility] [address] [id number] [place] [address]- 0038 Dec, [facility] [address] [id number] [place] [address]- 5013 Dec, [facility] [address] [id number] [place] [address]- 9086 Nov, [facility] [address] [id number] [place] [address]- 4976 Nov, [facility] [address] [id number] [place] [address]- 8515 Oct, [facility] [address] [id number] [place] [address]- 6493 Oct, [facility] [address] [id number] [place] [address]- 5537 Mar, [facility] [address] [id number] [place] [address]- 9994 February, [facility] [address] [id number] [place] [address]- 2439 February, [facility] [address] [id number] [place] [address]- 9610 February, [facility] [address] [id number] [place] [address]- 5386 February, [facility] [address] [id number] [place] [address]- 3689 February, [facility] [address] [id number] [place] [address]- 2546 February, [facility] [place] [facility] [address] [id number] [place] [address]- 3586 February, [facility] [place] [facility] [address] [id number] [place] [address]- 9906 Dec, [facility] [address] [id number] [place] [address]- 7675 Dec, [facility] [address] [id number] [place] [address]- 2306 Dec, [facility] [address] [id number] [place] [address]- 9726 Nov, [facility] [place] [facility] [address] [id number] [place] [address]- 0496 Nov, [facility] [place] [facility] [address] [id number] [place] [address] 2546 Nov, [facility] [place] [facility] [address] [id number] [place] [address]- 8384 Nov, [facility] [place] [facility] [address] [id number] [place] [address]- 1724 Nov, [facility] [place] [facility] [address] [id number] [place] [address]- 9256 Nov, [facility] [address] [id number] [place] [address]- 3106 Nov, [facility] [place] [facility] [address] [id number] [place] [address]- 3810 Oct, [facility] [place] [facility] [address] [id number] [place] [address]- 8104 Oct, [facility] [place] [facility] [address] [id number] [place] [address]- 4239 Oct, [facility] [place] [facility] [address] [id number] [place] [address] 2544 Oct, [facility] [place] [facility] [address] [id number] [place] [address]- 2119 Oct, [facility] [place] [facility] [address] [id number] [place] [address]- 1814 Sep, [facility] [place] [facility] [address] [id number] [place] [address]- 7843 Sep, [facility] [place] [facility] [address] [id number] [place] [address]- 4527 Aug, [facility] [place] [facility] [address] [id number] [place] [address]- 0269 Aug, [facility] [place] [facility] [address] [facility] [id number] [place] [address]- 9929 Jul, [facility] [place] [facility] [address] [id number] [place] [address]- 8257 Jul, [facility] [place] [facility] [address] [id number] [place] [address]- 6183 Jul, [facility] [place] [facility] [address] [id number] [place] [address]- 9296 Jul, [facility] [place] [facility] [address] [id number] [place] [address]- 7955 Jul, [facility] [place] [facility] [address] [facility] [id number] [place] [address]- 5573 Jul, [facility] [place] [facility] [address] [id number] [place] [address]- 4167 05 Jul, 2012 [facility] [place] [facility] [address] [facility] [id number] [place] [address]- 0565 02 Jul, 2012 [facility] [place] [facility] [address] [facility] [id number] [place] [address]- 6397 27 Jun, 2012 [facility] [place] [facility] [address] [id number] [place] [address]- 9135 26 Sep2011 [facility] [place] [facility] [address] [id number] [place] [address]- 254 20 Sep, 2011 [facility] [place] [facility] [address] [id number] [place] [address]- 0706 19 Sep2011 [facility] [place] [facility] [address] [facility] [id number] [place] [address]- 5604 18 Sep2011 [facility] [place] [facility] [address] [facility] [id number] [place] [address]- 3249 12 Sep, 2011 [facility] [place] [facility] [address] [id number] [place] [address]- 9968 10 Jun, 2011 [facility] [place] [facility] [address] [id number] [place] [address]- 6496 07 Jun, 2011 [facility] [place] [facility] [address] [id number] [place] [address] 2546 07 Jun, 2011 [facility] [place] [facility] [address] [id number] [place] [address]- 2186 06 Jun, 2011 [facility] [place] [facility] [address] [id number] [place] [address]- 6265 05 Jun, 2011 [facility] [place] [facility] [address] [id number] [place] [address]- 7761 May, [facility] [place] [facility] [address] [id number] [place] [address]- 5878 Apr, [facility] [place] [facility] [address] [id number] [place] [address]- 4783 Aug, [facility] [place] [facility] [address] [id number] [place] [address]- 2687 Aug, [facility] [place] [facility] [address] [id number] [place] [address]- 4328 Aug, [facility] [place] [facility] [address] [id number] [place] [address]- 5470 Aug, [facility] [place] [facility] [address] [id number] [place] [address]- 0602 Aug, [facility] [place] [facility] [address] [id number] [place] [address]- 1327 Jul, [facility] [place] [facility] [address] [id number] [place] [address]- 1270 Jul, [facility] [place] [facility] [address] [id number] [place] [address]- 7936 February, [facility] [place] [facility] [address] [id number] [place] [address]- 7117 Nov, [facility] [address] [facility] [id number] [place] [address]- 4376 Nov, [facility] [address] [facility] [id number] [place] 3196 Oct, [facility] [address] [facility] [id number] [place] [address] 2546 29 Sep, 2009 [facility] [address] [facility] [id number] [place] [address] 254 Sep, [facility] [address] [facility] [id number] [place] [address]- 1342 Sep, [facility] [address] [facility] [id number] [place] [address]- 9334 Sep, [facility] [address] [facility] [id number] [place] [address]- 6474 Sep, [facility] [address] [facility] [id number] [place] [address]- 8053 27 Aug, 2009 [facility] [address] [facility] [id number] [place] [address]- 9386 Aug, [facility] [address] [facility] [id number] [place] [address]- 7152 16 Aug, 2009 [facility] [address] [facility] [id number] [place] [address]- 6637 Aug, [facility] [address] [facility] [id number] [place] [address]- 9637 12 Aug, 2009 [facility] [address] [facility] [id number] [place] [address]- 3644 15 Jul, 2009 [facility] [address] [facility] [id number] [place] [address]- 3838 15 Jul, 2009 [facility] [address] [facility] [id number] [place] 5448 17 Jun, 2009 IMMUNIZATIONS No Known Immunizations SOCIAL HISTORY Never Assessed REASON FOR VISIT Lab results PLAN OF CARE VITAL SIGNS MEDICATIONS Medication Instructions Dosage Frequency Start Date End Date Duration Status Atorvastatin Calcium 20 mg Orally Once a day 1 tablet 24h Dec, 90 days Active Lisinopril 5 mg Orally Once a day 1 tablet 24h Dec, 90 days Active Levothyroxine Sodium 25 MCG Orally Once a day 1 tablet on an empty stomach in the morning 24h Dec, 90 days Active RESULTS No Results PROCEDURES No Known procedures INSTRUCTIONS MEDICATIONS ADMINISTERED No Known Medications MEDICAL (GENERAL) HISTORY Type Description Date Medical History HYPOTHYROID Medical History ARTHRITIS Medical History MARQUEZ Medical History gestational diabetes with last two pregnancies Surgical History C SECTION X1 Surgical History Left thumb surgery Hospitalization History Childbirth
--- OUTSIDE RECORDS SUMMARY | 2018-11-08 00:29 | XMS REPORT ---
Author Author ALEN RUSSELL Organization [facility] Address [address] [place] [address] Care Team Providers Care Software Development Coordinator Name Role Phone DREWBLANKALEN Unavailable PROBLEMS Type Condition ICD9-CM Code WNT19-PF Code Onset Dates Condition Status SNOMED Code Problem Elevated blood pressure I10 Active 75119836 Problem Hypercholesteremia E78.00 Active 20653487 Problem Sciatica of right side M54.31 Active 72461102 Problem Type 2 diabetes mellitus with hyperglycemia, without long-term current use of insulin E11.65 Active 69973949 Problem Headache R51 Active 38641396 Problem Acquired hypothyroidism E03.9 Active 039497521 Problem Body mass index (BMI) of 32.0-32.9 in adult Z68.32 Active 964903728 Problem Other obesity due to excess calories E66.09 Active 438470199 ALLERGIES No Information ENCOUNTERS Encounter Location Date Diagnosis [facility] [id number] [place] [address]30- 4596 Apr, [facility] [address] [place] [address] -5832 Apr, Sciatica of right side M54.31 [facility] [id number] [place] [address] 52211- 5178 Jan, Type 2 diabetes mellitus with hyperglycemia, without long- term current use of insulin E11.65 ; Acquired hypothyroidism E03.9 ; Hypercholesteremia E78.00 ; [place] cardiac risk <10% in next 10 years Z91.89 ; Other obesity due to excess calories E66.09 and Body mass index (BMI) of 32.0-32.9 in adult Z68.32 [facility] [id number] [place] [address] 04959- 2375 Dec, [facility] [id number] [place] [address] 05228- 6445 15 Dec, 2017 Acquired hypothyroidism E03.9 [facility] [id number] [place] [address] 16662- 6080 12 Dec, 2017 Type 2 diabetes mellitus with hyperglycemia, without long- term current use of insulin E11.65 ; Acquired hypothyroidism E03.9 ; Elevated blood pressure I10 and Other obesity due to excess calories E66.09 [facility] [address] [address]- 3580 09 Dec, 2017 Type 2 diabetes mellitus with hyperglycemia, without long- term current use of insulin E11.65 ; Acquired hypothyroidism E03.9 ; Elevated blood pressure I10 ; Dysuria R30.0 ; Dizziness R42 ; Acute cystitis with hematuria N30.01 ; Headache R51 ; Other obesity due to excess calories E66.09 and Body mass index (BMI) of 32.0-32.9 in adult Z68.32 [facility] [address] [address] Mar, Foot pain, left M79.672 [facility] [id number] [place] [address] 79003- 7654 Dec, Hypothyroidism E03.9 [place] [facility] [address] [address]- 3126 15 Dec, 2015 Acquired hypothyroidism E03.9 ; Elevated blood pressure I10 and Headache R51 [facility] [id number] [place] [address] 65682- 6284 Sep, Bone spur M77.9 [facility] [address] 23111- 8078 14 Sep, 2015 Hypothyroidism E03.9 [facility] [id number] [place] [address] 51556- 9824 Sep, Pain in right foot M79.671 [facility] [id number] [place] [address] 19183- 9193 Sep, Hypothyroidism E03.9 [facility] [id number] [place] [address] 02771- 0815 Sep, Hypothyroidism E03.9 [facility] [id number] [place] [address] 87724- 1592 Sep, Pain in right foot M79.671 and Hypothyroidism E03.9 [facility] [id number] [place] [address] 64352- 4861 Jun, Hypothyroidism 244.9 and History of blurry vision V12.49 [facility] [address] [address]- 7110 May, Nexplanon removal V25.43 and Initiation of OCP (BCP) V25.01 [facility] [id number] [place] [address] 80292- 0258 Apr, [facility] [address] [address]- 1420 Apr, Hypothyroidism 244.9 and Constipation 564.00 [facility] [id number] [place] [address] 46324- 0444 Mar, [facility] [id number] [place] [address] 07654- 6448 Mar, [facility] [id number] [place] [address] 84832- 4750 Mar, Unspecified hypothyroidism 244.9 [facility] [id number] [place] [address] 64049- 1713 Mar, Unspecified hypothyroidism 244.9 [facility] [id number] [place] [address] 73829- 4729 Mar, Unspecified hypothyroidism 244.9 [facility] [id number] [place] [address] 47985- 3252 Jan, [facility] [id number] [place] [address] 11180- 7369 Jan, [facility] [place] [facility] [address] [id number] [place] [address]- 7686 Nov, [facility] [place] [facility] [address] [id number] [place] [address]- 6426 Nov, [facility] [place] [facility] [address] [id number] [place] [address]- 6523 Oct, [facility] [place] [facility] [address] [id number] [place] [address]- 2372 Oct, [facility] [place] [facility] [address] [id number] [place] [address]- 1812 Oct, [facility] [place] [facility] [address] [id number] [place] [address]- 7134 Oct, [facility] [place] [facility] [address] [id number] [place] [address]- 4327 Oct, [facility] [place] [facility] [address] [id number] [place] [address]- 8217 Oct, [facility] [place] [facility] [address] [id number] [place] [address]- 6141 Oct, [facility] [place] [facility] [address] [id number] [place] [address]- 1563 Oct, [facility] [place] [facility] [address] [id number] [place] [address]- 9346 Oct, [facility] [place] [facility] [address] [id number] [place] [address]- 0897 February, [facility] [place] [facility] [address] [id number] [place] [address]- 5016 February, [facility] [place] [facility] [address] [id number] [place] [address]- 1216 Dec, [facility] [place] [facility] [address] [id number] [place] [address]- 7657 Dec, [facility] [place] [facility] [address] [id number] [place] [address]- 3593 Dec, [facility] [address] [id number] [place] [address]- 3973 Dec, [facility] [address] [id number] [place] [address]- 0284 Nov, [facility] [address] [id number] [place] [address]- 1456 Nov, [facility] [address] [id number] [place] [address]- 7388 Oct, [facility] [address] [id number] [place] [address]- 4018 Oct, [facility] [address] [id number] [place] [address]- 8858 Mar, [facility] [address] [id number] [place] [address]- 2590 February, [facility] [address] [id number] [place] [address]- 9272 February, [facility] [address] [id number] [place] [address]- 6729 February, [facility] [address] [id number] [place] [address]- 8993 February, [facility] [address] [id number] [place] [address]- 8054 February, [facility] [address] [id number] [place] [address]- 2546 February, [facility] [place] [facility] [address] [id number] [place] [address]- 7236 February, [facility] [place] [facility] [address] [id number] [place] [address]- 0876 Dec, [facility] [address] [id number] [place] [address]- 4830 Dec, [facility] [address] [id number] [place] [address]- 5489 Dec, [facility] [address] [id number] [place] [address]- 9276 Nov, [facility] [place] [facility] [address] [id number] [place] [address]- 9206 Nov, [facility] [place] [facility] [address] [id number] [place] [address] 2546 Nov, [facility] [place] [facility] [address] [id number] [place] [address]- 9789 Nov, [facility] [place] [facility] [address] [id number] [place] [address]- 0300 Nov, [facility] [place] [facility] [address] [id number] [place] [address]- 6446 Nov, [facility] [address] [id number] [place] [address]- 3128 Nov, [facility] [place] [facility] [address] [id number] [place] [address]- 7931 Oct, [facility] [place] [facility] [address] [id number] [place] [address]- 2105 Oct, [facility] [place] [facility] [address] [id number] [place] [address]- 5023 Oct, [facility] [place] [facility] [address] [id number] [place] [address] 254 Oct, [facility] [place] [facility] [address] [id number] [place] [address]- 4621 Oct, [facility] [place] [facility] [address] [id number] [place] [address]- 4668 Sep, [facility] [place] [facility] [address] [id number] [place] [address]- 0209 Sep, [facility] [place] [facility] [address] [id number] [place] [address]- 0284 Aug, [facility] [place] [facility] [address] [id number] [place] [address]- 2223 Aug, [facility] [place] [facility] [address] [facility] [id number] [place] [address]- 7730 Jul, [facility] [place] [facility] [address] [id number] [place] [address]- 2653 Jul, [facility] [place] [facility] [address] [id number] [place] [address]- 7122 Jul, [facility] [place] [facility] [address] [id number] [place] [address]- 7222 Jul, [facility] [place] [facility] [address] [id number] [place] [address]- 2774 Jul, [facility] [place] [facility] [address] [facility] [id number] [place] [address]- 5229 Jul, [facility] [place] [facility] [address] [id number] [place] [address]- 7242 05 Jul, 2012 [facility] [place] [facility] [address] [facility] [id number] [place] [address]- 9386 02 Jul, 2012 [facility] [place] [facility] [address] [facility] [id number] [place] [address]- 4552 27 Jun, 2012 [facility] [place] [facility] [address] [id number] [place] [address]- 8879 26 Sep2011 [facility] [place] [facility] [address] [id number] [place] [address]- 2541 20 Sep, 2011 [facility] [place] [facility] [address] [id number] [place] [address]- 6749 19 Sep2011 [facility] [place] [facility] [address] [facility] [id number] [place] [address]- 5695 18 Sep2011 [facility] [place] [facility] [address] [facility] [id number] [place] [address]- 9048 12 Sep, 2011 [facility] [place] [facility] [address] [id number] [place] [address]- 1603 10 Jun, 2011 [facility] [place] [facility] [address] [id number] [place] [address]- 0966 07 Jun, 2011 [facility] [place] [facility] [address] [id number] [place] [address] 2546 07 Jun, 2011 [facility] [place] [facility] [address] [id number] [place] [address]- 9256 06 Jun, 2011 [facility] [place] [facility] [address] [id number] [place] [address]- 8852 05 Jun, 2011 [facility] [place] [facility] [address] [id number] [place] [address]- 9542 May, [facility] [place] [facility] [address] [id number] [place] [address]- 2212 Apr, [facility] [place] [facility] [address] [id number] [place] [address]- 9716 Aug, [facility] [place] [facility] [address] [id number] [place] [address]- 3419 Aug, [facility] [place] [facility] [address] [id number] [place] [address]- 0155 Aug, [facility] [place] [facility] [address] [id number] [place] [address]- 2931 Aug, [facility] [place] [facility] [address] [id number] [place] [address]- 2020 Aug, [facility] [place] [facility] [address] [id number] [place] [address]- 8652 Jul, [facility] [place] [facility] [address] [id number] [place] [address]- 4452 Jul, [facility] [place] [facility] [address] [id number] [place] [address]- 5175 February, [facility] [place] [facility] [address] [id number] [place] [address]- 6437 Nov, [facility] [address] [facility] [id number], [place] [address]- 3346 Nov, [facility] [address] [facility] [id number][place] 8216 Oct, [facility] [address] [facility] [id number], [place] [address] 2546 29 Sep, 2009 [facility] [address] [facility] [id number], [place] [address] 254 Sep, [facility] [address] [facility] [id number], [place] [address]- 9620 Sep, [facility] [address] [facility] [id number], [place] [address]- 6052 Sep, [facility] [address] [facility] [id number], [place] [address]- 2140 Sep, [facility] [address] [facility] [id number], [place] [address]- 7218 27 Aug, 2009 [facility] [address] [facility] [id number], [place] [address]- 5313 Aug, [facility] [address] [facility] [id number], [place] [address]- 7842 16 Aug, 2009 [facility] [address] [facility] [id number], [place] [address]- 1538 Aug, [facility] [address] [facility] [id number], [place] [address]- 1846 Aug, [facility] [address] [facility] [id number][place]19[place]- 0920 15 Jul, 2009 [facility] [address] [facility] [id number], [place] [address]- 2828 15 Jul, 2009 [facility] [address] [facility] [id number][place] 1608 17 Jun, 2009 IMMUNIZATIONS No Known Immunizations SOCIAL HISTORY Never Assessed REASON FOR VISIT Requests return call PLAN OF CARE VITAL SIGNS MEDICATIONS Unknown Medications RESULTS No Results PROCEDURES No Known procedures INSTRUCTIONS MEDICATIONS ADMINISTERED No Known Medications MEDICAL (GENERAL) HISTORY Type Description Date Medical History HYPOTHYROID Medical History ARTHRITIS Medical History MARQUEZ Medical History gestational diabetes with last two pregnancies Surgical History C SECTION X1 Surgical History Left thumb surgery Hospitalization History Childbirth
[2018-11-08] MEDS ORDERED: KETOROLAC 30 MG/ML VIAL IVP ONE (00:30)
--- OUTSIDE RECORDS SUMMARY | 2018-11-08 00:30 | XMS REPORT ---
Author NEGRITA Nice Organization [employer] Address Unknown Phone Unavailable Care Team Providers Care Cake Froster Name Role Phone NEGRITA PATTERSON CP Unavailable Allergies No Known Allergies Problems Problem Type Condition Code Onset Dates Condition Status Assessment Bone spur M77.9 Active Problem Hypothyroidism E03.9 Active Medications No Known Medications Results No Known Results Summary Purpose [employer] Submission
--- OUTSIDE RECORDS SUMMARY | 2018-11-08 00:30 | XMS REPORT ---
Author NEGRITA Nice Organization [employer] Address Unknown Phone Unavailable Care Team Providers Care Merchandise Coordinator Name Role Phone NEGRITA PATTERSON CP Unavailable Allergies No Known Allergies Problems Problem Type Condition Code Onset Dates Condition Status Assessment Hypothyroidism E03.9 Active Problem Hypothyroidism E03.9 Active Medications No Known Medications Results No Known Results Summary Purpose [employer] Submission
--- OUTSIDE RECORDS SUMMARY | 2018-11-08 00:30 | XMS REPORT ---
Author Author NEGRITA PATTERSON [facility] [employer] Address Unknown Phone Unavailable Care Team Providers Care Millwright Supervisor Name Role Phone NEGRITA PATTERSON CP Unavailable Allergies No Known Allergies Problems Problem Type Condition Code Onset Dates Condition Status Assessment Hypothyroidism E03.9 Active Problem Hypothyroidism E03.9 Active Medications Medication Code System Code Instructions Start Date End Date Status Dosage Levothyroxine Sodium [facility]NOTE 2] [address]-87 125 MCG Orally Once a day Oct 11, 2015 1 tablet Results No Known Results Summary Purpose [employer] Submission
--- OUTSIDE RECORDS SUMMARY | 2018-11-08 00:30 | XMS REPORT ---
Author NEGRITA Nice [facility] [employer] Address Unknown Phone Unavailable Care Team Providers Care Coal Pulverizer Operator Name Role Phone NEGRITA PATTERSON CP Unavailable Allergies, Adverse Reactions, Alerts Substance Reaction Event Type Penicillin V Potassium Info Not Available Drug Allergy Problems Problem Type Condition Code Onset Dates Condition Status Assessment Hypothyroidism 244.9 Active Assessment History of blurry vision V12.49 Active Problem Hypothyroidism 244.9 Active Medications Medication Code System Code Instructions Start Date End Date Status Dosage Levothyroxine Sodium [facility] [address]-50 100 MCG Orally Once a day May 26, 2015 1 tablet MiraLax [facility] [address]-51 17 gm/dose Orally Once a day May 21, 2015 Nov 17, 2015 1 capful Pravastatin Sodium [facility] [address]-23 20 MG Orally Once a day April 26, 2015 1 tablet Red Yeast Rice [facility] [address]553 2000 mg Orally Once a day April 26, 2015 as directed Ortho-Cyclen (28) [facility] [address]-55 0.25-35 MG-MCG Orally Once a day May 1 tablet Procedures Procedure Coding System Code Date Office Visit, Est Pt., Level 3 CPT-4 44976 Jul 16, 2015 Vital Signs Date/Time: Jul 16, 2015 Temperature 97.8 F Weight 163.7 lbs Height 60 in BMI 31.97 Index Blood Pressure Diastolic 76 mmHg Blood Pressure Systolic 120 mmHg Cardiac Monitoring Heart Rate 78 bpm Results No Known Results Summary Purpose [employer] Submission
--- OUTSIDE RECORDS SUMMARY | 2018-11-08 00:30 | XMS REPORT ---
Author NEGRITA Nice Organization [employer] Address Unknown Phone Unavailable Care Team Providers Care Manager Company Name Role Phone NEGRITA PATTERSON CP Unavailable Allergies No Known Allergies Problems Problem Type Condition Code Onset Dates Condition Status Assessment Hypothyroidism E03.9 Active Problem Hypothyroidism E03.9 Active Medications No Known Medications Procedures Procedure Coding System Code Date VENIPUNCT, ROUTINE* CPT-4 92976 Oct 08, 2015 ASSAY THYROID STIM HORMONE CPT-4 22575 Oct 08, 2015 Results Name Result Date Reference Range Unit Abnormality Flag ROUTINE VENIPUNCTURE Summary Purpose [employer] Submission
--- OUTSIDE RECORDS SUMMARY | 2018-11-08 00:30 | XMS REPORT ---
Author NEGRITA Nice [facility] [employer] Address Unknown Phone Unavailable Care Team Providers Care Supply Chain Project Manager Name Role Phone NEGRITA PATTERSON CP Unavailable Allergies No Known Allergies Problems Problem Type Condition Code Onset Dates Condition Status Assessment Pain in right foot M79.671 Active Problem Hypothyroidism E03.9 Active Medications No Known Medications Procedures Procedure Coding System Code Date X-RAY EXAM OF FOOT CPT-4 79757 Oct 08, 2015 Results No Known Results Summary Purpose [employer] Submission
--- OUTSIDE RECORDS SUMMARY | 2018-11-08 00:30 | XMS REPORT ---
Author NEGRITA Nice [facility] [employer] Address Unknown Phone Unavailable Care Team Providers Care Master Lay Out Specialist Name Role Phone NEGRITA PATTERSON CP Unavailable Allergies, Adverse Reactions, Alerts Substance Reaction Event Type Penicillin V Potassium Info Not Available Drug Allergy Problems Problem Type Condition Code Onset Dates Condition Status Assessment Pain in right foot M79.671 Active Assessment Hypothyroidism E03.9 Active Problem Hypothyroidism E03.9 Active Medications Medication Code System Code Instructions Start Date End Date Status Dosage Red Yeast Rice [facility] [address]271 2000 mg Orally Once a day April 26, 2015 as directed MiraLax [facility] [address]-36 17 gm/dose Orally Once a day May 21, 2015 Nov 17, 2015 1 capful Levothyroxine Sodium [facility] [address]-48 100 MCG Orally Once a day May 26, 2015 1 tablet Pravastatin Sodium [facility] [address]-32 20 MG Orally Once a day April 26, 2015 1 tablet Ortho-Cyclen (28) [facility] [address]-38 0.25-35 MG-MCG Orally Once a day May 1 tablet Procedures Procedure Coding System Code Date VENIPUNCT, ROUTINE* CPT-4 10941 Oct 01, 2015 Office Visit, Est Pt., Level 3 CPT-4 16898 Oct 01, 2015 ASSAY THYROID STIM HORMONE CPT-4 84204 Oct 01, 2015 Vital Signs Date/Time: Oct 01, 2015 Temperature 97.6 F Weight 162.6 lbs Height 60 in BMI 31.75 Index Blood Pressure Diastolic 80 mmHg Blood Pressure Systolic 132 mmHg Cardiac Monitoring Heart Rate 80 bpm Results Name Result Date Reference Range Unit Abnormality Flag ROUTINE VENIPUNCTURE TSH Summary Purpose [employer] Submission
--- OUTSIDE RECORDS SUMMARY | 2018-11-08 00:31 | XMS REPORT | Continuity of Care Document ---
Author Author [facility] of [facility] of [facility] Address Unknown Phone Unavailable Allergies Active Description Code Type Severity Reaction Onset Reported/Identified Relationship to Patient Clinical Status Yes Penicillins Drug Allergy 06/25/2009 Yes Penicillins Drug Allergy N/A N/A 06/25/2009 Yes Penicillins [id number] Drug Allergy Unknown N/A 12/28/2009 Medications There is no data. Problems Date Dx Coded Attending Type Code Diagnosis Diagnosed By 06/25/2009 599.0 Urinary Tract Infection 06/25/2009 659.60 OTHER ADVANCED MATERNAL AGE UNSPECIFIED TO EPISODE OF CARE OR NOT APPLICABLE 06/25/2009 ROSITA KING DO 599.0 Urinary Tract Infection 06/25/2009 ROSITA KING DO 659.60 OTHER ADVANCED MATERNAL AGE UNSPECIFIED TO EPISODE OF CARE OR NOT APPLICABLE 06/25/2009 599.0 Urinary Tract Infection 06/25/2009 659.60 OTHER ADVANCED MATERNAL AGE UNSPECIFIED TO EPISODE OF CARE OR NOT APPLICABLE 06/25/2009 JAYLIN KING DOA K 599.0 Urinary Tract Infection 06/25/2009 ROSITA KING DO 659.60 OTHER ADVANCED MATERNAL AGE UNSPECIFIED TO EPISODE OF CARE OR NOT APPLICABLE 06/25/2009 JAYLIN KING DOA K 599.0 Urinary Tract Infection 06/25/2009 ROSITA KING DO 659.60 OTHER ADVANCED MATERNAL AGE UNSPECIFIED TO EPISODE OF CARE OR NOT APPLICABLE 06/25/2009 JAYLIN KING DOA K 599.0 Urinary Tract Infection 06/25/2009 ROSITA KING DO 659.60 OTHER ADVANCED MATERNAL AGE UNSPECIFIED TO EPISODE OF CARE OR NOT APPLICABLE 06/25/2009 599.0 Urinary Tract Infection 06/25/2009 659.60 OTHER ADVANCED MATERNAL AGE UNSPECIFIED TO EPISODE OF CARE OR NOT APPLICABLE 06/25/2009 599.0 Urinary Tract Infection 06/25/2009 659.60 OTHER ADVANCED MATERNAL AGE UNSPECIFIED TO EPISODE OF CARE OR NOT APPLICABLE 06/25/2009 KING DO, ROSITA K 599.0 Urinary Tract Infection 06/25/2009 KING DO, ROSITA K 659.60 OTHER ADVANCED MATERNAL AGE UNSPECIFIED TO EPISODE OF CARE OR NOT APPLICABLE 06/25/2009 599.0 Urinary Tract Infection 06/25/2009 659.60 OTHER ADVANCED MATERNAL AGE UNSPECIFIED TO EPISODE OF CARE OR NOT APPLICABLE 06/25/2009 RICHARD GAMBINO APRN, JOSE N 599.0 Urinary Tract Infection 06/25/2009 RICHARD GAMBINO APRN, JOSE N 659.60 OTHER ADVANCED MATERNAL AGE UNSPECIFIED TO EPISODE OF CARE OR NOT APPLICABLE 06/25/2009 KING DO, ROSITA K 599.0 Urinary Tract Infection 06/25/2009 KING DO, ROSITA K 659.60 OTHER ADVANCED MATERNAL AGE UNSPECIFIED TO EPISODE OF CARE OR NOT APPLICABLE 06/25/2009 VLAD MICA PLATE LAYER HAND, RAFAEL A 599.0 Urinary Tract Infection 06/25/2009 VLAD MICA PLATE LAYER HAND, RAFAEL A 659.60 OTHER ADVANCED MATERNAL AGE UNSPECIFIED TO EPISODE OF CARE OR NOT APPLICABLE 07/15/2009 V04.81 FLU SHOT 07/15/2009 V22.1 Pc Other Normal 07/15/2009 KING DO, ROSITA K V04.81 FLU SHOT 07/15/2009 KING DO, ROSITA K V22.1 Pc Other Normal 07/15/2009 V04.81 FLU SHOT 07/15/2009 V22.1 Pc Other Normal 07/15/2009 KING DO, ROSITA K V04.81 FLU SHOT 07/15/2009 KING DO, ROSITA K V22.1 Pc Other Normal 07/15/2009 KING DO, ROSITA K V04.81 FLU SHOT 07/15/2009 KING DO, ROSITA K V22.1 Pc Other Normal 07/15/2009 KING DO, ROSITA K V04.81 FLU SHOT 07/15/2009 KING DO, ROSITA K V22.1 Pc Other Normal 07/15/2009 V04.81 FLU SHOT 07/15/2009 V22.1 Pc Other Normal 07/15/2009 V04.81 FLU SHOT 07/15/2009 V22.1 Pc Other Normal 07/15/2009 KING DO, ROSITA K V04.81 FLU SHOT 07/15/2009 KING DO, ROSITA K V22.1 Pc Other Normal 07/15/2009 V04.81 FLU SHOT 07/15/2009 V22.1 Pc Other Normal 07/15/2009 RAMOS CASHZULAY MICA PLATE LAYER HAND, JOSE N V04.81 FLU SHOT 07/15/2009 RAOMS CASHERO MICA PLATE LAYER HAND, JOSE N V22.1 Pc Other Normal 07/15/2009 KING ROSITA SEAY K V04.81 FLU SHOT 07/15/2009 ROSITA KING DO V22.1 Pc Other Normal 07/15/2009 VLAD MICA PLATE LAYER HAND, RAFAEL A V04.81 FLU SHOT 07/15/2009 VLAD MICA PLATE LAYER HAND, RAFAEL A V22.1 Pc Other Normal 10/08/2009 V23.49 Supervision Of High-risk , With Other Poor Obstetric History 10/08/2009 ROSITA KING DO V23.49 Supervision Of High-risk , With Other Poor Obstetric History 10/08/2009 V23.49 Supervision Of High-risk , With Other Poor Obstetric History 10/08/2009 ROSITA KING DO V23.49 Supervision Of High-risk , With Other Poor Obstetric History 10/08/2009 ROSITA KING DO V23.49 Supervision Of High-risk , With Other Poor Obstetric History 10/08/2009 ROSITA KING DO V23.49 Supervision Of High-risk , With Other Poor Obstetric History 10/08/2009 V23.49 Supervision Of High-risk , With Other Poor Obstetric History 10/08/2009 V23.49 Supervision Of High-risk , With Other Poor Obstetric History 10/08/2009 ROSITA KING DO V23.49 Supervision Of High-risk , With Other Poor Obstetric History 10/08/2009 V23.49 Supervision Of High-risk , With Other Poor Obstetric History 10/08/2009 RAMOS CASHZULAY TED, JOSE N V23.49 Supervision Of High-risk , With Other Poor Obstetric History 10/08/2009 ORSITA KING DO V23.49 Supervision Of High-risk , With Other Poor Obstetric History 10/08/2009 VLAD MICA PLATE LAYER HAND, RAFAEL A V23.49 Supervision Of High-risk , With Other Poor Obstetric History 10/26/2009 648.80 Abnormal Glucose Tolerance, In The Mother, Complicating , Childbirth, Or The [place], Unspecified As To Episode Of Care 10/26/2009 ROSITA KING DO 648.80 Abnormal Glucose Tolerance, In The Mother, Complicating , Childbirth , Or The [place], Unspecified As To Episode Of Care 10/26/2009 648.80 Abnormal Glucose Tolerance, In The Mother, Complicating , Childbirth, Or The [place], Unspecified As To Episode Of Care 10/26/2009 RSOITA KING DO 648.80 Abnormal Glucose Tolerance, In The Mother, Complicating , Childbirth , Or The [place], Unspecified As To Episode Of Care 10/26/2009 ROSITA KING DO 648.80 Abnormal Glucose Tolerance, In The Mother, Complicating , Childbirth , Or The [place], Unspecified As To Episode Of Care 10/26/2009 ROSITA KING DO 648.80 Abnormal Glucose Tolerance, In The Mother, Complicating , Childbirth , Or The [place], Unspecified As To Episode Of Care 10/26/2009 648.80 Abnormal Glucose Tolerance, In The Mother, Complicating , Childbirth, Or The [place], Unspecified As To Episode Of Care 10/26/2009 648.80 Abnormal Glucose Tolerance, In The Mother, Complicating , Childbirth, Or The [place], Unspecified As To Episode Of Care 10/26/2009 ROSITA KING DO 648.80 Abnormal Glucose Tolerance, In The Mother, Complicating , Childbirth , Or The [place], Unspecified As To Episode Of Care 10/26/2009 648.80 Abnormal Glucose Tolerance, In The Mother, Complicating , Childbirth, Or The [place], Unspecified As To Episode Of Care 10/26/2009 JOSE DE LA CRUZ APRN 648.80 Abnormal Glucose Tolerance, In The Mother, Complicating , Childbirth, Or The [place], Unspecified As To Episode Of Care 10/26/2009 ROSITA KING DO 648.80 Abnormal Glucose Tolerance, In The Mother, Complicating , Childbirth , Or The [place], Unspecified As To Episode Of Care 10/26/2009 RAFAEL CHU APRN 648.80 Abnormal Glucose Tolerance, In The Mother, Complicating , Childbirth, Or The [place], Unspecified As To Episode Of Care 12/01/2009 V23.9 HIGH-RISK CARE UNSPEC 12/01/2009 ROSITA KING DO V23.9 HIGH-RISK CARE UNSPEC 12/01/2009 V23.9 HIGH-RISK CARE UNSPEC 12/01/2009 ROSITA KING DO V23.9 HIGH-RISK CARE UNSPEC 12/01/2009 ROSITA KING DO V23.9 HIGH-RISK CARE UNSPEC 12/01/2009 ROSITA KING DO V23.9 HIGH-RISK CARE UNSPEC 12/01/2009 V23.9 HIGH-RISK CARE UNSPEC 12/01/2009 V23.9 HIGH-RISK CARE UNSPEC 12/01/2009 ROSITA KING DO V23.9 HIGH-RISK CARE UNSPEC 12/01/2009 V23.9 HIGH-RISK CARE UNSPEC 12/01/2009 JOSE DE LA CRUZ APRN V23.9 HIGH-RISK CARE UNSPEC 12/01/2009 ROSITA KING DO V23.9 HIGH-RISK CARE UNSPEC 12/01/2009 RAFAEL CHU APRN V23.9 HIGH-RISK CARE UNSPEC 03/16/2010 V24.2 Routine Follow-up 03/16/2010 ROSITA KING DO V24.2 Routine Follow-up 03/16/2010 V24.2 Routine Follow-up 03/16/2010 ROSITA KING DO V24.2 Routine Follow-up 03/16/2010 ROSITA KING DO V24.2 Routine Follow-up 03/16/2010 ROSITA KING DO V24.2 Routine Follow-up 03/16/2010 V24.2 Routine Follow-up 03/16/2010 V24.2 Routine Follow-up 03/16/2010 ROSITA KING DO V24.2 Routine Follow-up 03/16/2010 V24.2 Routine Follow-up 03/16/2010 JOSE DE LA CRUZ APRN V24.2 Routine Follow-up 03/16/2010 ROSITA KING DO V24.2 Routine Follow-up 03/16/2010 RAFAEL CHU APRN A V24.2 Routine Follow-up 06/10/2010 788.1 Dysuria 06/10/2010 KING DO, ROSITA K 788.1 Dysuria 06/10/2010 788.1 Dysuria 06/10/2010 KING DO, ROSITA K 788.1 Dysuria 06/10/2010 KING DO, ROSITA K 788.1 Dysuria 06/10/2010 KING DO, ROSITA K 788.1 Dysuria 06/10/2010 788.1 Dysuria 06/10/2010 788.1 Dysuria 06/10/2010 KING DO, ROSITA K 788.1 Dysuria 06/10/2010 788.1 Dysuria 06/10/2010 JOSE DE LA CRUZ APRN 788.1 Dysuria 06/10/2010 KING DO, ROSITA K 788.1 Dysuria 06/10/2010 RAFAEL CHU APRN A 788.1 Dysuria 08/17/2010 110.1 Dermatophytosis Of Nail 08/17/2010 611.72 Lump Or Mass In Breast 08/17/2010 780.50 Sleep Disturbance, Unspecified 08/17/2010 V72.31 Bi Technical Lead Exam, Routine 08/17/2010 KING DO, ROSITA K 110.1 Dermatophytosis Of Nail 08/17/2010 KING DO, ROSITA K 611.72 Lump Or Mass In Breast 08/17/2010 KING DO, ROSITA K 780.50 Sleep Disturbance, Unspecified 08/17/2010 KING DO, ROSITA K V72.31 Bi Technical Lead Exam, Routine 08/17/2010 110.1 Dermatophytosis Of Nail 08/17/2010 611.72 Lump Or Mass In Breast 08/17/2010 780.50 Sleep Disturbance, Unspecified 08/17/2010 V72.31 Bi Technical Lead Exam, Routine 08/17/2010 KING DO, ROSITA K 110.1 Dermatophytosis Of Nail 08/17/2010 KING DO, ROSITA K 611.72 Lump Or Mass In Breast 08/17/2010 KING DO, ROSITA K 780.50 Sleep Disturbance, Unspecified 08/17/2010 KING DO, ROSITA K V72.31 Bi Technical Lead Exam, Routine 08/17/2010 KING DO, ROSITA K 110.1 Dermatophytosis Of Nail 08/17/2010 KING DO, ROSITA K 611.72 Lump Or Mass In Breast 08/17/2010 KING DO, ROSITA K 780.50 Sleep Disturbance, Unspecified 08/17/2010 KING DO, ROSITA K V72.31 Bi Technical Lead Exam, Routine 08/17/2010 KING DO, ROSITA K 110.1 Dermatophytosis Of Nail 08/17/2010 KING DO, ROSITA K 611.72 Lump Or Mass In Breast 08/17/2010 KING DO, ROSITA K 780.50 Sleep Disturbance, Unspecified 08/17/2010 KING DO, ROSITA K V72.31 Bi Technical Lead Exam, Routine 08/17/2010 110.1 Dermatophytosis Of Nail 08/17/2010 611.72 Lump Or Mass In Breast 08/17/2010 780.50 Sleep Disturbance, Unspecified 08/17/2010 V72.31 Bi Technical Lead Exam, Routine 08/17/2010 110.1 Dermatophytosis Of Nail 08/17/2010 611.72 Lump Or Mass In Breast 08/17/2010 780.50 Sleep Disturbance, Unspecified 08/17/2010 V72.31 Bi Technical Lead Exam, Routine 08/17/2010 KING DO, ROSITA K 110.1 Dermatophytosis Of Nail 08/17/2010 KING DO, ROSITA K 611.72 Lump Or Mass In Breast 08/17/2010 KING DO, ROSITA K 780.50 Sleep Disturbance, Unspecified 08/17/2010 KING DO, ROSITA K V72.31 Bi Technical Lead Exam, Routine 08/17/2010 110.1 Dermatophytosis Of Nail 08/17/2010 611.72 Lump Or Mass In Breast 08/17/2010 780.50 Sleep Disturbance, Unspecified 08/17/2010 V72.31 Bi Technical Lead Exam, Routine 08/17/2010 JOSE DE LA CRUZ APRN N 110.1 Dermatophytosis Of Nail 08/17/2010 JOSE DE LA CRUZ APRN N 611.72 Lump Or Mass In Breast 08/17/2010 JOSE DE LA CRUZ APRN N 780.50 Sleep Disturbance, Unspecified 08/17/2010 JOSE DE LA CRUZ APRN N V72.31 Bi Technical Lead Exam, Routine 08/17/2010 KING DO, ROSITA K 110.1 Dermatophytosis Of Nail 08/17/2010 FERNANDO DO, ROSITA K 611.72 Lump Or Mass In Breast 08/17/2010 FERNANDO DO, ROSITA K 780.50 Sleep Disturbance, Unspecified 08/17/2010 KING DO, ROSITA K V72.31 Bi Technical Lead Exam, Routine 08/17/2010 VLAD MICA PLATE LAYER HAND, RAFAEL A 110.1 Dermatophytosis Of Nail 08/17/2010 VLAD MICA PLATE LAYER HAND, RAFAEL A 611.72 Lump Or Mass In Breast 08/17/2010 VLAD MICA PLATE LAYER HAND, RAFAEL A 780.50 Sleep Disturbance, Unspecified 08/17/2010 VLAD MICA PLATE LAYER HAND, RAFAEL A V72.31 Bi Technical Lead Exam, Routine 09/06/2010 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 09/06/2010 216.4 Benign Neoplasm Of Scalp And Skin Of Neck 09/06/2010 JAYLIN KING DOA K 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 09/06/2010 ROSITA KING DO K 216.4 Benign Neoplasm Of Scalp And Skin Of Neck 09/06/2010 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 09/06/2010 216.4 Benign Neoplasm Of Scalp And Skin Of Neck 09/06/2010 JAYLIN KING DOA K 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 09/06/2010 JAYLIN KING DOA K 216.4 Benign Neoplasm Of Scalp And Skin Of Neck 09/06/2010 JAYLIN KING DOA K 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 09/06/2010 ROSITA KING DO K 216.4 Benign Neoplasm Of Scalp And Skin Of Neck 09/06/2010 JAYLIN KING DOA K 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 09/06/2010 JAYLIN KING DOA K 216.4 Benign Neoplasm Of Scalp And Skin Of Neck 09/06/2010 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 09/06/2010 216.4 Benign Neoplasm Of Scalp And Skin Of Neck 09/06/2010 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 09/06/2010 216.4 Benign Neoplasm Of Scalp And Skin Of Neck 09/06/2010 JAYLIN KING DOA K 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 09/06/2010 KING DO, ROSITA K 216.4 Benign Neoplasm Of Scalp And Skin Of Neck 09/06/2010 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 09/06/2010 216.4 Benign Neoplasm Of Scalp And Skin Of Neck 09/06/2010 JOSE DE LA CRUZ APRN N 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 09/06/2010 JOSE DE LA CRUZ APRN N 216.4 Benign Neoplasm Of Scalp And Skin Of Neck 09/06/2010 ROSITA KING DO K 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 09/06/2010 ROSITA KING DO K 216.4 Benign Neoplasm Of Scalp And Skin Of Neck 09/06/2010 RAFAEL CHU APRN A 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 09/06/2010 RAFAEL CHU APRN A 216.4 Benign Neoplasm Of Scalp And Skin Of Neck 09/12/2010 701.9 Unspecified Hypertrophic And Atrophic Conditions Of Skin 09/12/2010 ROSITA KING DO K 701.9 Unspecified Hypertrophic And Atrophic Conditions Of Skin 09/12/2010 701.9 Unspecified Hypertrophic And Atrophic Conditions Of Skin 09/12/2010 ROSITA KING DO K 701.9 Unspecified Hypertrophic And Atrophic Conditions Of Skin 09/12/2010 ROSITA KING DO K 701.9 Unspecified Hypertrophic And Atrophic Conditions Of Skin 09/12/2010 ROSITA KING DO K 701.9 Unspecified Hypertrophic And Atrophic Conditions Of Skin 09/12/2010 701.9 Unspecified Hypertrophic And Atrophic Conditions Of Skin 09/12/2010 701.9 Unspecified Hypertrophic And Atrophic Conditions Of Skin 09/12/2010 ROSITA KING DO K 701.9 Unspecified Hypertrophic And Atrophic Conditions Of Skin 09/12/2010 701.9 Unspecified Hypertrophic And Atrophic Conditions Of Skin 09/12/2010 JOSE DE LA CRUZ APRN N 701.9 Unspecified Hypertrophic And Atrophic Conditions Of Skin 09/12/2010 ROSITA KING DO K 701.9 Unspecified Hypertrophic And Atrophic Conditions Of Skin 09/12/2010 PATO CHU APRNIDI A 701.9 Unspecified Hypertrophic And Atrophic Conditions Of Skin 09/13/2010 Ot 998.11 05/16/2011 112.1 Candidiasis Vaginal 05/16/2011 V25.09 Contraceptive Counseling 05/16/2011 V72.41 Test Negative Result 05/16/2011 KING DO, ROSITA K 112.1 Candidiasis Vaginal 05/16/2011 KING DO, ROSITA K V25.09 Contraceptive Counseling 05/16/2011 KING DO, ROSITA K V72.41 Test Negative Result 05/16/2011 112.1 Candidiasis Vaginal 05/16/2011 V25.09 Contraceptive Counseling 05/16/2011 V72.41 Test Negative Result 05/16/2011 KING DO, ROSITA K 112.1 Candidiasis Vaginal 05/16/2011 KING DO, ROSITA K V25.09 Contraceptive Counseling 05/16/2011 KING DO, ROSITA K V72.41 Test Negative Result 05/16/2011 KING DO, ROSITA K 112.1 Candidiasis Vaginal 05/16/2011 KING DO, ROSITA K V25.09 Contraceptive Counseling 05/16/2011 KING DO, ROSITA K V72.41 Test Negative Result 05/16/2011 KING DO, ROSITA K 112.1 Candidiasis Vaginal 05/16/2011 KING DO, ROSITA K V25.09 Contraceptive Counseling 05/16/2011 KING DO, ROSITA K V72.41 Test Negative Result 05/16/2011 112.1 Candidiasis Vaginal 05/16/2011 V25.09 Contraceptive Counseling 05/16/2011 V72.41 Test Negative Result 05/16/2011 112.1 Candidiasis Vaginal 05/16/2011 V25.09 Contraceptive Counseling 05/16/2011 V72.41 Test Negative Result 05/16/2011 KING DO, ROSITA K 112.1 Candidiasis Vaginal 05/16/2011 KING DO, ROSITA K V25.09 Contraceptive Counseling 05/16/2011 KING DO, ROSITA K V72.41 Test Negative Result 05/16/2011 112.1 Candidiasis Vaginal 05/16/2011 V25.09 Contraceptive Counseling 05/16/2011 V72.41 Test Negative Result 05/16/2011 RAMOSPIERCE WALLACEERO MICA PLATE LAYER HAND, JOSE N 112.1 Candidiasis Vaginal 05/16/2011 RAMOS CASHERO MICA PLATE LAYER HAND, JOSE N V25.09 Contraceptive Counseling 05/16/2011 RAMOS CASHERO MICA PLATE LAYER HAND, JOSE N V72.41 Test Negative Result 05/16/2011 KING DO, ROSITA K 112.1 Candidiasis Vaginal 05/16/2011 KING DO, ROSITA K V25.09 Contraceptive Counseling 05/16/2011 KING ROSITA SEAY K V72.41 Test Negative Result 05/16/2011 RAFAEL CHU APRN A 112.1 Candidiasis Vaginal 05/16/2011 RAFAEL CHU APRN A V25.09 Contraceptive Counseling 05/16/2011 RAFAEL CHU APRN A V72.41 Test Negative Result 06/04/2012 V72.42 Test Positive Result 06/04/2012 ROSITA KING DO K V72.42 Test Positive Result 06/04/2012 V72.42 Test Positive Result 06/04/2012 KING DO, ROSITA K V72.42 Test Positive Result 06/04/2012 KING ROSITA SEAY K V72.42 Test Positive Result 06/04/2012 KING ROSITA SEAY K V72.42 Test Positive Result 06/04/2012 V72.42 Test Positive Result 06/04/2012 V72.42 Test Positive Result 06/04/2012 KING JAYLIN SEAYA K V72.42 Test Positive Result 06/04/2012 V72.42 Test Positive Result 06/04/2012 RICHARD WALLACEJOSE BISWAS APRN N V72.42 Test Positive Result 06/04/2012 KING JAYLIN SEAYA K V72.42 Test Positive Result 06/04/2012 RAFAEL CHU APRN A V72.42 Test Positive Result 07/03/2012 659.63 OTHER ADVANCED MATERNAL AGE ANTEPARTUM CONDITION OR COMPLICATION 07/03/2012 ROSITA KING DO 659.63 OTHER ADVANCED MATERNAL AGE ANTEPARTUM CONDITION OR COMPLICATION 07/03/2012 659.63 OTHER ADVANCED MATERNAL AGE ANTEPARTUM CONDITION OR COMPLICATION 07/03/2012 ROSITA KING DO 659.63 OTHER ADVANCED MATERNAL AGE ANTEPARTUM CONDITION OR COMPLICATION 07/03/2012 ROSITA KING DO 659.63 OTHER ADVANCED MATERNAL AGE ANTEPARTUM CONDITION OR COMPLICATION 07/03/2012 ROSITA KING DO 659.63 OTHER ADVANCED MATERNAL AGE ANTEPARTUM CONDITION OR COMPLICATION 07/03/2012 659.63 OTHER ADVANCED MATERNAL AGE ANTEPARTUM CONDITION OR COMPLICATION 07/03/2012 659.63 OTHER ADVANCED MATERNAL AGE ANTEPARTUM CONDITION OR COMPLICATION 07/03/2012 ROSITA KING DO 659.63 OTHER ADVANCED MATERNAL AGE ANTEPARTUM CONDITION OR COMPLICATION 07/03/2012 659.63 OTHER ADVANCED MATERNAL AGE ANTEPARTUM CONDITION OR COMPLICATION 07/03/2012 JOSE DE LA CRUZ APRN 659.63 OTHER ADVANCED MATERNAL AGE ANTEPARTUM CONDITION OR COMPLICATION 07/03/2012 ROSITA KING DO 659.63 OTHER ADVANCED MATERNAL AGE ANTEPARTUM CONDITION OR COMPLICATION 07/03/2012 RAFAEL CHU APRN 659.63 OTHER ADVANCED MATERNAL AGE ANTEPARTUM CONDITION OR COMPLICATION 07/10/2012 244.9 HYPOTHYROIDISM 07/10/2012 250.00 DIABETES MELLITUS WITHOUT MENTION OF COMPLICATION TYPE II OR UNSPECIFIED TYPE NOT STATED UNCONTROLLED 07/10/2012 V76.2 Cervical Cancer Screening (pap Smear) 07/10/2012 ROSITA KING DO 244.9 HYPOTHYROIDISM 07/10/2012 ROSITA KING DO K 250.00 DIABETES MELLITUS WITHOUT MENTION OF COMPLICATION TYPE II OR UNSPECIFIED TYPE NOT STATED UNCONTROLLED 07/10/2012 ROSITA KING DO V76.2 Cervical Cancer Screening (pap Smear) 07/10/2012 244.9 HYPOTHYROIDISM 07/10/2012 250.00 DIABETES MELLITUS WITHOUT MENTION OF COMPLICATION TYPE II OR UNSPECIFIED TYPE NOT STATED UNCONTROLLED 07/10/2012 V76.2 Cervical Cancer Screening (pap Smear) 07/10/2012 ROSITA KING DO 244.9 HYPOTHYROIDISM 07/10/2012 ROSITA KING DO 250.00 DIABETES MELLITUS WITHOUT MENTION OF COMPLICATION TYPE II OR UNSPECIFIED TYPE NOT STATED UNCONTROLLED 07/10/2012 ROSITA KING DO V76.2 Cervical Cancer Screening (pap Smear) 07/10/2012 ROSITA KING DO 244.9 HYPOTHYROIDISM 07/10/2012 ROSITA KING DO 250.00 DIABETES MELLITUS WITHOUT MENTION OF COMPLICATION TYPE II OR UNSPECIFIED TYPE NOT STATED UNCONTROLLED 07/10/2012 ROSITA KING DO V76.2 Cervical Cancer Screening (pap Smear) 07/10/2012 ROSITA KING DO 244.9 HYPOTHYROIDISM 07/10/2012 ROSITA KING DO K 250.00 DIABETES MELLITUS WITHOUT MENTION OF COMPLICATION TYPE II OR UNSPECIFIED TYPE NOT STATED UNCONTROLLED 07/10/2012 ROSITA KING DO V76.2 Cervical Cancer Screening (pap Smear) 07/10/2012 244.9 HYPOTHYROIDISM 07/10/2012 250.00 DIABETES MELLITUS WITHOUT MENTION OF COMPLICATION TYPE II OR UNSPECIFIED TYPE NOT STATED UNCONTROLLED 07/10/2012 V76.2 Cervical Cancer Screening (pap Smear) 07/10/2012 244.9 HYPOTHYROIDISM 07/10/2012 250.00 DIABETES MELLITUS WITHOUT MENTION OF COMPLICATION TYPE II OR UNSPECIFIED TYPE NOT STATED UNCONTROLLED 07/10/2012 V76.2 Cervical Cancer Screening (pap Smear) 07/10/2012 ROSITA KING DO K 244.9 HYPOTHYROIDISM 07/10/2012 JAYLIN KING DOA K 250.00 DIABETES MELLITUS WITHOUT MENTION OF COMPLICATION TYPE II OR UNSPECIFIED TYPE NOT STATED UNCONTROLLED 07/10/2012 ROSITA KING DO V76.2 Cervical Cancer Screening (pap Smear) 07/10/2012 244.9 HYPOTHYROIDISM 07/10/2012 250.00 DIABETES MELLITUS WITHOUT MENTION OF COMPLICATION TYPE II OR UNSPECIFIED TYPE NOT STATED UNCONTROLLED 07/10/2012 V76.2 Cervical Cancer Screening (pap Smear) 07/10/2012 RICHARD GAMBINO APRN JOSE N 244.9 HYPOTHYROIDISM 07/10/2012 JOSE DE LA CRUZ APRN N 250.00 DIABETES MELLITUS WITHOUT MENTION OF COMPLICATION TYPE II OR UNSPECIFIED TYPE NOT STATED UNCONTROLLED 07/10/2012 RICHARD GAMBINO APRN JOSE N V76.2 Cervical Cancer Screening (pap Smear) 07/10/2012 ROSITA KING DO K 244.9 HYPOTHYROIDISM 07/10/2012 ROSITA KING DO K 250.00 DIABETES MELLITUS WITHOUT MENTION OF COMPLICATION TYPE II OR UNSPECIFIED TYPE NOT STATED UNCONTROLLED 07/10/2012 ROSITA KING DO K V76.2 Cervical Cancer Screening (pap Smear) 07/10/2012 VLAD MICA PLATE LAYER HAND, RAFAEL A 244.9 HYPOTHYROIDISM 07/10/2012 VLAD MICA PLATE LAYER HAND, RAFAEL A 250.00 DIABETES MELLITUS WITHOUT MENTION OF COMPLICATION TYPE II OR UNSPECIFIED TYPE NOT STATED UNCONTROLLED 07/10/2012 VLAD MICA PLATE LAYER HAND, RAFAEL A V76.2 Cervical Cancer Screening (pap Smear) 09/25/2012 692.9 DERMATITIS CONTACT UNSPECIFIED 09/25/2012 ROSITA KING DO 692.9 DERMATITIS CONTACT UNSPECIFIED 09/25/2012 692.9 DERMATITIS CONTACT UNSPECIFIED 09/25/2012 ROSITA KING DO 692.9 DERMATITIS CONTACT UNSPECIFIED 09/25/2012 ROSITA KING DO 692.9 DERMATITIS CONTACT UNSPECIFIED 09/25/2012 ROSITA KING DO K 692.9 DERMATITIS CONTACT UNSPECIFIED 09/25/2012 692.9 DERMATITIS CONTACT UNSPECIFIED 09/25/2012 692.9 DERMATITIS CONTACT UNSPECIFIED 09/25/2012 JAYLIN KING DOA K 692.9 DERMATITIS CONTACT UNSPECIFIED 09/25/2012 692.9 DERMATITIS CONTACT UNSPECIFIED 09/25/2012 JOSE DE LA CRUZ APRN N 692.9 DERMATITIS CONTACT UNSPECIFIED 09/25/2012 KING DO ROSITA K 692.9 DERMATITIS CONTACT UNSPECIFIED 09/25/2012 RAFAEL CHU APRN A 692.9 DERMATITIS CONTACT UNSPECIFIED 10/16/2012 648.10 COMPL OF - THYROID DYSFUNCTION 10/16/2012 648.83 GESTATIONAL DIABETES 10/16/2012 KING DO ROSITA K 648.10 COMPL OF - THYROID DYSFUNCTION 10/16/2012 KING DO ROSITA K 648.83 GESTATIONAL DIABETES 10/16/2012 648.10 COMPL OF - THYROID DYSFUNCTION 10/16/2012 648.83 GESTATIONAL DIABETES 10/16/2012 KING DO ROSITA K 648.10 COMPL OF - THYROID DYSFUNCTION 10/16/2012 KING DO, ROSITA K 648.83 GESTATIONAL DIABETES 10/16/2012 KING DO ROSITA K 648.10 COMPL OF - THYROID DYSFUNCTION 10/16/2012 KING DO ROSITA K 648.83 GESTATIONAL DIABETES 10/16/2012 KING DO ROSITA K 648.10 COMPL OF - THYROID DYSFUNCTION 10/16/2012 KING DO ROSITA K 648.83 GESTATIONAL DIABETES 10/16/2012 648.10 COMPL OF - THYROID DYSFUNCTION 10/16/2012 648.83 GESTATIONAL DIABETES 10/16/2012 648.10 COMPL OF - THYROID DYSFUNCTION 10/16/2012 648.83 GESTATIONAL DIABETES 10/16/2012 648.10 COMPL OF - THYROID DYSFUNCTION 10/16/2012 648.83 GESTATIONAL DIABETES 10/16/2012 JOSE DE LA CRUZ APRN N 648.10 COMPL OF - THYROID DYSFUNCTION 10/16/2012 JOSE DE LA CRUZ APRN N 648.83 GESTATIONAL DIABETES 10/16/2012 KING DO ROSITA K 648.10 COMPL OF - THYROID DYSFUNCTION 10/16/2012 KING DO ROSITA K 648.83 GESTATIONAL DIABETES 10/16/2012 RAFAEL CHU APRN A 648.10 COMPL OF - THYROID DYSFUNCTION 10/16/2012 RAFAEL CHU APRN A 648.83 GESTATIONAL DIABETES 10/30/2012 JAYLIN KING DOA K 649.60 UTERINE SIZE DATE DISCREPANCY - LGA 10/30/2012 649.60 UTERINE SIZE DATE DISCREPANCY - LGA 10/30/2012 KING DO, ROSITA K 649.60 UTERINE SIZE DATE DISCREPANCY - LGA 10/30/2012 KING DO, ROSITA K 649.60 UTERINE SIZE DATE DISCREPANCY - LGA 10/30/2012 KING DO, ROSITA K 649.60 UTERINE SIZE DATE DISCREPANCY - LGA 10/30/2012 649.60 UTERINE SIZE DATE DISCREPANCY - LGA 10/30/2012 649.60 UTERINE SIZE DATE DISCREPANCY - LGA 10/30/2012 649.60 UTERINE SIZE DATE DISCREPANCY - LGA 10/30/2012 RICHARD GAMBINO APRN JOSE N 649.60 UTERINE SIZE DATE DISCREPANCY - LGA 10/30/2012 KING JAYLIN SEAYA K 649.60 UTERINE SIZE DATE DISCREPANCY - LGA 10/30/2012 RAFAEL CHU APRN A 649.60 UTERINE SIZE DATE DISCREPANCY - LGA 12/11/2012 Ot 644.03 01/09/2013 Ot 244.9 01/09/2013 Ot 285.1 01/09/2013 Ot 285.9 01/09/2013 Ot 620.0 01/09/2013 Ot 646.81 01/09/2013 Ot 648.11 01/09/2013 Ot 648.21 01/09/2013 Ot 648.22 01/09/2013 Ot 648.81 01/09/2013 Ot 652.21 01/09/2013 Ot 652.31 01/09/2013 Ot 659.61 01/09/2013 Ot 660.01 01/09/2013 Ot V27.0 02/26/2013 795.03 ABNORMAL PAP - LGSIL 02/26/2013 V25.01 CONTRACEPTION - ORAL CONTRACEPTION 02/26/2013 795.03 ABNORMAL PAP - LGSIL 02/26/2013 V25.01 CONTRACEPTION - ORAL CONTRACEPTION 02/26/2013 JOSE DE LA CRUZ APRN N 795.03 ABNORMAL PAP - LGSIL 02/26/2013 JOSE DE LA CRUZ APRN N V25.01 CONTRACEPTION - ORAL CONTRACEPTION 02/26/2013 FERNANDO SEAYROSITA 795.03 ABNORMAL PAP - LGSIL 02/26/2013 FERNANDO SEAYROSITA V25.01 CONTRACEPTION - ORAL CONTRACEPTION 02/26/2013 RAFAEL CHU APRN A 795.03 ABNORMAL PAP - LGSIL 02/26/2013 RAFAEL CHU APRN A V25.01 CONTRACEPTION - ORAL CONTRACEPTION 11/13/2013 JOSE DE LA CRUZ APRN N 380.10 INFECTIVE OTITIS EXTERNA UNSPECIFIED 11/13/2013 RICHARD GAMBINO APRN, JOSE N 388.70 OTALGIA UNSPECIFIED 11/13/2013 ROSITA KING DO K 380.10 INFECTIVE OTITIS EXTERNA UNSPECIFIED 11/13/2013 FERNANDO SEAYROSITA K 388.70 OTALGIA UNSPECIFIED 11/13/2013 RAFAEL CHU APRN A 380.10 INFECTIVE OTITIS EXTERNA UNSPECIFIED 11/13/2013 RAFAEL CHU APRN A 388.70 OTALGIA UNSPECIFIED 02/15/2014 EVETTE SEAY АЛЕКСАНДР K Ot 623.8 02/15/2014 EVETTE SEAY АЛЕКСАНДР Francesco Ot 634.91 09/10/2014 Ot 790.22 09/10/2014 Ot 649.63 09/10/2014 Ot 659.63 09/10/2014 Ot V28.81 09/10/2014 Ot 648.83 09/10/2014 Ot 656.60 09/10/2014 Ot 244.9 09/10/2014 Ot 648.13 09/10/2014 Ot 648.83 09/10/2014 FERNANDO SEAYROSITA Ot 244.9 09/10/2014 FERNANDO SEAYROSITA Ot 648.14 09/10/2014 KING ROSITA SEAY Ot 648.84 09/10/2014 BATSHEVA HARGROVE MD Ot V28.81 10/13/2014 Ot 790.22 10/13/2014 Ot 649.63 10/13/2014 Ot 659.63 10/13/2014 Ot V28.81 10/13/2014 Ot 648.83 10/13/2014 Ot 656.60 10/13/2014 Ot 244.9 10/13/2014 Ot 648.13 10/13/2014 Ot 648.83 10/13/2014 ROSITA KING DO Ot 244.9 10/13/2014 ROSITA KING DO Ot 648.14 10/13/2014 ROSITA KING DO Ot 648.84 10/13/2014 DELVIN SERRANO, BATSHEVA Glass Ot V28.81 10/13/2014 DELVIN SERRANO, BATSHEVA Glass Ot V28.81 10/26/2014 DELVIN SERRANO, BATSHEVA Glass Ot V28.81 11/19/2014 RAFAEL CHU APRN V25.02 CONTRACEPTION - ANY METHOD 11/19/2014 RAFAEL CHU APRN V72.31 DOOR HANGER EXAM, ROUTINE 11/19/2014 RAFAEL CHU APRN V73.81 HPV SCREENING 11/19/2014 RAFAEL CHU APRN V76.10 BREAST CANCER SCREENING 11/19/2014 RAFAEL CHU APRN V76.2 CERVICAL CANCER SCREENING (PAP SMEAR) 11/26/2014 Ot 790.22 11/26/2014 Ot 649.63 11/26/2014 Ot 659.63 11/26/2014 Ot V28.81 11/26/2014 Ot 648.83 11/26/2014 Ot 656.60 11/26/2014 Ot 244.9 11/26/2014 Ot 648.13 11/26/2014 Ot 648.83 11/26/2014 ROSITA KING DO Ot 244.9 11/26/2014 ROSITA KING DO Ot 648.14 11/26/2014 ROSITA KING DO Ot 648.84 11/26/2014 DELVIN SERRANO, BATSHEVA Glass Ot V28.81 11/27/2014 RAFAEL CHU APRN Ot V76.12 Procedures Code [place] [address] UA OB DIP 08/26/2012 32114 UA OB DIP 09/25/2012 45751 UA OB DIP 10/16/2012 83226 ROUTINE VENIPUNCTURE 10/30/2012 63376 UA OB DIP 10/30/2012 24447 US OB ULTRASOUND 10/30/2012 61987 TSH 10/30/2012 32274 UA OB DIP 11/13/2012 76222 TSH 11/28/2012 32209 CULTURE GROUP B STREP VAG 12/11/2012 69521 ROUTINE VENIPUNCTURE 12/18/2012 84234 NON-STRESS TEST 12/18/2012 43303 UA OB DIP 12/18/2012 45583 TSH 12/18/2012 67035 US OB - FOLLOW UP 12/19/2012 81629 UA OB DIP 12/25/2012 18058 NON-STRESS TEST 12/25/2012 06677 UA OB DIP 12/30/2012 81071 NON-STRESS TEST 12/31/2012 85929 GLUCOSE HANNAH 2 HOUR 03/01/2013 53170 TSH 03/01/2013 79340 COLPOSCOPY 03/17/2013 59681 PAP SMEAR 03/17/2013 Q0091 PAP SMEAR OBTAIN SMEAR 03/17/2013 49557 URINE TEST (IN- HOUSE) 03/17/2013 31739 ROUTINE VENIPUNCTURE 01/14/2014 73777 TEST, URINE (IN- HOUSE) 01/14/2014 12571 TSH 01/14/2014 Results Test Result Range THYROID PEROXIDASE ANTIBODIES - 01/07/18 09:05 THYROID PEROXIDASE ANTIBODIES 687 IU/mL <9 THYROID PEROXIDASE ANTIBODIES - 06/03/18 18:27 THYROID PEROXIDASE ANTIBODIES 481 IU/mL <9 TSH - 07/30/18 17:23 TSH 51.50 mIU/L NRG Capillary blood glucose measurement by glucometer (mass/volume) - 11/07/18 22: 40 Capillary blood glucose measurement by glucometer (mass/volume) 129 mg/dL 70-110 Complete blood count (CBC) with automated white blood cell (WBC) differential - 11/07/18 22:48 Blood leukocytes automated count (number/volume) 7.3 10*3/uL 4.3-11.0 Blood erythrocytes automated count (number/volume) 4.05 10*6/uL 4.35-5.85 Venous blood hemoglobin measurement (mass/volume) 11.6 g/dL 11.5-16.0 Blood hematocrit (volume fraction) 34 % 35-52 Automated erythrocyte mean corpuscular volume 84 [foz_us] 80-99 Automated erythrocyte mean corpuscular hemoglobin (mass per erythrocyte) 29 pg 25-34 Automated erythrocyte mean corpuscular hemoglobin concentration measurement ( mass/volume) 34 g/dL 32-36 Automated erythrocyte distribution width ratio 14.4 % 10.0-14.5 Automated blood platelet count (count/volume) 267 10*3/uL 130-400 Automated blood platelet mean volume measurement 11.2 [foz_us] 7.4-10.4 Automated blood neutrophils/100 leukocytes 62 % 42-75 Automated blood lymphocytes/100 leukocytes 23 % 12-44 Blood monocytes/100 leukocytes 9 % 0-12 Automated blood eosinophils/100 leukocytes 6 % 0-10 Automated blood basophils/100 leukocytes 0 % 0-10 Blood neutrophils automated count (number/volume) 4.5 10*3 1.8-7.8 Blood lymphocytes automated count (number/volume) 1.7 10*3 1.0-4.0 Blood monocytes automated count (number/volume) 0.7 10*3 0.0-1.0 Automated eosinophil count 0.5 10*3/uL 0.0-0.3 Automated blood basophil count (count/volume) 0.0 10*3/uL 0.0-0.1 Serum or plasma choriogonadotropin ( test) detection - 11/07/18 22:48 Serum or plasma choriogonadotropin ( test) detection NEGATIVE NEGATIVE Comprehensive metabolic panel - 11/07/18 22:48 Serum or plasma sodium measurement (moles/volume) 138 mmol/L 135-145 Serum or plasma potassium measurement (moles/volume) 3.6 mmol/L 3.6-5.0 Serum or plasma chloride measurement (moles/volume) 107 mmol/L 98-107 Carbon dioxide 20 mmol/L 21-32 Serum or plasma anion gap determination (moles/volume) 11 mmol/L 5-14 Serum or plasma urea nitrogen measurement (mass/volume) 13 mg/dL 7-18 Serum or plasma creatinine measurement (mass/volume) 0.98 mg/dL 0.60-1.30 Serum or plasma urea nitrogen/creatinine mass ratio 13 NRG Serum or plasma creatinine measurement with calculation of estimated glomerular filtration rate > NRG Serum or plasma glucose measurement (mass/volume) 127 mg/dL 70-105 Serum or plasma calcium measurement (mass/volume) 9.3 mg/dL 8.5-10.1 Serum or plasma total bilirubin measurement (mass/volume) 0.4 mg/dL 0.1-1.0 Serum or plasma alkaline phosphatase measurement (enzymatic activity/volume) 93 U/L 40-136 Serum or plasma aspartate aminotransferase measurement (enzymatic activity/ volume) 24 U/L 5-34 Serum or plasma alanine aminotransferase measurement (enzymatic activity/volume ) 29 U/L 0-55 Serum or plasma protein measurement (mass/volume) 7.6 g/dL 6.4-8.2 Serum or plasma albumin measurement (mass/volume) 4.3 g/dL 3.2-4.5 CALCIUM CORRECTED 9.1 mg/dL 8.5-10.1 Magnesium - 11/07/18 22:48 Magnesium 2.3 mg/dL 1.8-2.4 Serum or plasma creatine kinase measurement (enzymatic activity/volume) - 11/07 22:48 Serum or plasma creatine kinase measurement (enzymatic activity/volume) 45 U/L 29-168 Serum or plasma amylase measurement (enzymatic activity/volume) - 11/07/18 22: 48 Serum or plasma amylase measurement (enzymatic activity/volume) 44 U /L 25-125 Lipase - 11/07/18 22:48 Lipase 46 U/L 8-78 Encounters ACCT No. Visit Date/Time Discharge Status Pt. Type Provider Facility Loc./Unit Complaint [id number] 11/19/2014 10:24:00 11/19/2014 23:59:59 CLS Outpatient RAFAEL CHU APRN [id number] 01/14/2014 12:10:00 01/14/2014 23:59:59 CLS Outpatient ROSITA KING DO [id number] 11/13/2013 13:37:00 11/13/2013 23:59:59 CLS Outpatient JOSE DE LA CRUZ APRN [id number] 01/20/2013 13:41:00 01/20/2013 23:59:59 CLS Outpatient [id number] 12/30/2012 14:08:00 12/30/2012 23:59:59 CLS Outpatient ROSITA KING DO [id number] 12/18/2012 10:08:00 12/18/2012 23:59:59 CLS Outpatient ROSITA KING DO [id number] 11/27/2012 10:52:00 11/27/2012 23:59:59 CLS Outpatient ROSITA KING DO [id number] 11/13/2012 09:58:00 11/13/2012 23:59:59 CLS Outpatient [id number] 10/30/2012 08:57:00 10/30/2012 23:59:59 CLS Outpatient ROSITA KING DO [id number] 10/16/2012 11:32:00 10/16/2012 23:59:59 CLS Outpatient [id number] 08/26/2012 09:56:00 08/26/2012 23:59:59 CLS Outpatient ROSITA KING DO [id number] 03/17/2013 13:41:00 Document Registration [id number] 02/26/2013 15:27:00 Document Registration [id number] 11/26/2014 10:44:00 11/26/2014 23:59:59 CLS Outpatient RAFAEL CHU APRN [facility] RAD [id number] 02/15/2014 04:28:00 02/15/2014 06:00:00 DIS Emergency АЛЕКСАНДР ALAS DO [facility] ER [id number] 02/09/2014 13:20:00 02/09/2014 23:59:59 CLS Outpatient BATSHEVA HARGROVE MD [facility] RAD [id number] 03/10/2013 08:39:00 03/10/2013 23:59:59 CLS Outpatient ROSITA KING DO [facility] LAB [id number] 11/07/2018 22:47:00 Document Registration [id number] 09/10/2014 12:41:00 Document Registration [id number] 09/10/2014 12:41:00 Document Registration [id number] 01/06/2013 16:55:00 Document Registration [id number] 12/23/2012 10:50:00 Document Registration [id number] 12/11/2012 02:33:00 Document Registration [id number] 11/04/2012 10:15:00 Document Registration [id number] 08/01/2012 14:07:00 Document Registration [id number] 07/05/2012 07:51:00 Document Registration [id number] 09/13/2010 01:47:00 Document Registration [id number] 05/02/2018 14:55:00 05/02/2018 23:59:59 CLS Outpatient [facility] [id number] 07/30/2018 17:20:00 Document Registration [id number] 06/03/2018 17:40:00 Document Registration [id number] 01/07/2018 09:00:00 Document Registration
[2018-11-08] MEDS ORDERED: KETOROLAC 30 MG/ML VIAL ONE (00:36)
[2018-11-08 01:00] VITALS: BP 158/86
--- NOTE | 2018-11-08 07:12 | Diagnostic Imaging Report ---
INDICATION: Shortness of breath Frontal chest obtained at 11 o'clock hours p.m. Heart and mediastinal silhouette are normal in appearance. There is poor inspiration. The lungs appear grossly clear. There is no pneumothorax or pleural fluid. IMPRESSION: Poor inspiration but grossly negative chest. Dictated by: Dictated on workstation # [id number]
== END 2018-11-08 01:05 | disposition home or self-care (01) ==
LOC: EDUNIT# 22:15 → ER 22:16
DX: F41.9 Anxiety disorder, unspecified (principal); I10 Essential (primary) hypertension; E03.9 Hypothyroidism, unspecified; E11.9 Type 2 diabetes mellitus without complications; Z88.0 Allergy status to penicillin; Z98.890 Other specified postprocedural states
CPT/HCPCS: 36415; 71045; 80053; 80306; 80320; 81000; 82150; 82550; 82553; 82962; 83690; 83735; 83880; 84439; 84443; 84484; 84703; 85025; 85610; 85730; 93005; 93041; 96374; 96375

== ENCOUNTER 2019-10-15 09:59 | Emergency (ER) | payer BC ==
[~2019-10-15] VITALS: Ht 152.4 cm; Wt 73.0 kg
[~2019-10-15 09:59] MED LIST changes: +HYDR50CA PO
[2019-10-15] MEDS ORDERED: B/P MED (10:40)
[2019-10-15] MEDS ORDERED: CHOLESTEROL MED (10:40)
[2019-10-15 11:22] LABS: BASOPHILS % (AUTO) 1 % (0-10); EOSINOPHILS # (AUTO) 0.5 10^3/uL (0.0-0.3); EOSINOPHILS % (AUTO) 8 % (0-10); HEMATOCRIT 40 % (35-52); HEMOGLOBIN 13.3 G/DL (11.5-16.0); LYMPHOCYTES # (AUTO) 1.6 X 10^3 (1.0-4.0); LYMPHOCYTES % (AUTO) 26 % (12-44); MEAN CORPUSCULAR HEMOGLOBIN 29 PG (25-34); MEAN CORPUSCULAR HGB CONC 33 G/DL (32-36); MEAN CORPUSCULAR VOLUME 88 FL (80-99); MEAN PLATELET VOLUME 11.3 FL (7.4-10.4); MONOCYTES # (AUTO) 0.5 X 10^3 (0.0-1.0); MONOCYTES % (AUTO) 8 % (0-12); NEUTROPHILS # (AUTO) 3.6 X 10^3 (1.8-7.8); NEUTROPHILS % (AUTO) 58 % (42-75); PLATELET COUNT 290 10^3/uL (130-400); RED CELL DISTRIBUTION WIDTH 14.1 % (10.0-14.5); WHITE BLOOD COUNT 6.2 10^3/uL (4.3-11.0)
[2019-10-15] MEDS ORDERED: NS IV 1000 ML 1,000 ML IV SCH (11:23)
--- NOTE | 2019-10-15 11:34 | ED Abdominal Pain ---
General Chief Complaint: Abdominal/GI Problems Stated Complaint: STOMACH PAIN Nursing Triage Note: PT SENT FROM [facility] W ABD PAIN, PT STATES STARTED LAST PM, POINTS TO L LOWER ABD AND L SIDE BACK. RATES 8/10 Sepsis Screen: No Definite Risk Source of Information: Patient, Spouse (translated for pt) Exam Limitations: Language Barrier ( translated for her) (LUCINA BAEZNARESHAARON MARLENE MCCLENDON) History of Present Illness Date Seen by Provider: Oct 15, 2019 Time Seen by Provider: 11:05 Initial Comments This is a 48 y/o F who presents from [facility] with suprapubic abd pain which onset last night around 6PM, is deep & dull, radiates to middle Low back, is exacerbated w/ movement, and is accompanied by distension and MARQUEZ. She rates the pain 8-9 on a scale of 0 to 10. Denies any sx including dysuria, gross hematuria, frequency, urgency, vaginal discharge or odor. She also denies any fevers, chills, N/V/D or constipation. Denies any event, activity, or food that may have caused the pain. She went to [facility] prior to coming here and had a UA which according to the showed microscopic hematuria, she was advised at [facility] to go the ED for further f/u. She has not taken anything for pain. She has not had anything to eat today. Reports she did have a UTI 3 wks ago for which she took ABX and states her pain today does not feel the same as when she had UTI. Denies any reproductive medical hx or any surgeries besides C-sections. Her LMP was 2 m/o and she notes they have been becoming more and more irregular lately. Denies any past hx of gallbladder problems or acid reflux, or kidney stones. Denies any heavy lifting, falls, or trauma that may have caused the pain. Pt also complains of pain to her L lateral and anterior thigh which onset a 1 wk ago and is exacerbated w/ movement. Timing/Duration: 1-2 Days Severity/Quality: Moderate, Cramping Location: Suprapubic Radiation: Back (low back, @ L5-S1 junction) Activities at Onset: None Modifying Factors: Improves With Lying down; Worsens With Movement, Worsens With Palpation; Improves With Resting Associated Symptoms: Back Pain; No Diaphoresis, No Fever/Chills; Headache; No Nausea/Vomiting, No Swelling/Mass in Abdomen; Other (has distension) ([facility]ST[facility]CympelBRISEYDA [facility]) Allergies and Home Medications Allergies Coded Allergies: Penicillins (Verified Allergy, Unknown, 12/28/09) Home Medications Levothyroxine Sodium 125 Mcg Tablet, 1 EACH PO DAILY, (Reported) Patient Home Medication List Home Medication List Reviewed: Yes (PALMER SANCHEZ) Review of Systems Review of Systems Constitutional: No chills, No fever EENTM: No Symptoms Reported Respiratory: Denies Cough, Denies Shortness of Air Cardiovascular: Denies Chest Pain, Denies Lightheadedness, Denies Syncope Gastrointestinal: Abdomen Distended, Abdominal Pain; Denies Blood Streaked Stools, Denies Constipated, Denies Diarrhea, Denies Nausea, Denies Rectal Bleeding, Denies Vomiting Genitourinary: Denies Burning, Denies Discharge, Denies Drainage, Denies Frequency, Denies Flank Pain; Hematuria; Denies Urgency Musculoskeletal: back pain, other (muscle pain to anterior L upper thigh and IT band region) Skin: No pruritus, No rash Psychiatric/Neurological: No Symptoms Reported Endocrine: No Symptoms Reported Hematologic/Lymphatic: No Symptoms Reported ([facility]) Past Qjtbsvx-Znqqns-Etiktu Hx Past Med/Social Hx: Reviewed and Corrections made (PALMER SANCHEZ) Patient Social History Alcohol Use: Denies Use Recreational Drug Use: No Smoking Status: Never a Smoker Type Used: Cigarettes 2nd Hand Smoke Exposure: No Recent Foreign Travel: No Contact w/Someone Who Travel: No Recent Infectious Disease Expo: No Recent Hopitalizations: Yes (CHILDBIRTH X3) Physical Abuse: No Sexual Abuse: No ([facility]) Immunizations Up To Date Tetanus Booster (TDap): Less than 5yrs Date of Influenza Vaccine: Jul 29, 2012 ([facility]Roost[facility]ISEYDA [facility]) Seasonal Allergies Seasonal Allergies: No ([facility]el[facility]ISE[facility]DA [facility]) Past Medical History Surgeries: Yes Section Respiratory: No Cardiac: Yes Hypertension Neurological: No : No Last Menstrual Period: Aug 06, 2019 Reproductive Disorders: No Female Reproductive Disorders: Denies Sexually Transmitted Disease: No HIV/AIDS: No Genitourinary: No Gastrointestinal: No Musculoskeletal: No Endocrine: Yes Hypothyroidsim, Diabetes, Non-Insulin dep HEENT: No Cancer: No Psychosocial: Yes Anxiety Integumentary: No Blood Disorders: No (SHANIQUA BAEZ [facility]) Physical Exam Vital Signs Vital Signs - First Documented 10/15/19 10:25 Temp 37.7 Pulse 65 Resp 18 B/P (MAP) 158/75 (102) Pulse Ox 99 (DANIEL,PALMER BLEACHING SUPERVISOR) Vital Signs Capillary Refill : Less Than 3 Seconds ([facility] Height/Weight/BMI Height: 5'1.00" Weight: 170lbs. oz. 77.487671zh; 31.00 BMI Method:Stated General Appearance: WD/WN, no apparent distress, mild distress, other (Pt does not speak Kinyarwanda; pleasant, cooperative, abdominal obesity) Respiratory: chest non-tender, lungs clear, normal breath sounds, no respiratory distress, no accessory muscle use Cardiovascular: normal peripheral pulses, regular rate, rhythm, no edema, no gallop, no JVD, no murmur Gastrointestinal: normal bowel sounds, soft, no organomegaly, no pulsatile mass, tenderness (to suprapubic region), other (negative Serrano's sign, No tenderness over McBurney's point, Negative Rovsing sign, Negative heel strike bilaterally, negative obtorator and iliopsoas sign on the right) Extremities: other (Pain to L upper thigh and IT band w/ movement especially extension and adduction of the LLE, pain reproduced to L lower back with the said movements) Back: normal inspection, no CVA tenderness, no vertebral tenderness Neurologic/Psychiatric: alert, oriented x 3 Skin: normal color, warm/dry Lymphatic: no adenopathy (SHANIQUA BAEZ [facility]) Progress/Results/Core Measures Results/Orders Lab Results Laboratory Tests Test 10/15/19 10:30 10/15/19 12:00 Range/Units White Blood Count 6.2 4.3-11.0 10^3/uL Red Blood Count 4.59 4.35-5.85 10^6/uL Hemoglobin 13.3 11.5-16.0 G/DL Hematocrit 40 35-52 % Mean Corpuscular Volume 88 80-99 FL Mean Corpuscular Hemoglobin 29 25-34 PG Mean Corpuscular Hemoglobin Concent 33 32-36 G/DL Red Cell Distribution Width 14.1 10.0-14.5 % Platelet Count 290 130-400 10^3/uL Mean Platelet Volume 11.3 H 7.4-10.4 FL Neutrophils (%) (Auto) 58 42-75 % Lymphocytes (%) (Auto) 26 12-44 % Monocytes (%) (Auto) 8 0-12 % Eosinophils (%) (Auto) 8 0-10 % Basophils (%) (Auto) 1 0-10 % Neutrophils # (Auto) 3.6 1.8-7.8 X 10^3 Lymphocytes # (Auto) 1.6 1.0-4.0 X 10^3 Monocytes # (Auto) 0.5 0.0-1.0 X 10^3 Eosinophils # (Auto) 0.5 H 0.0-0.3 10^3/uL Basophils # (Auto) 0.0 0.0-0.1 10^3/uL Sodium Level 141 135-145 MMOL/L Potassium Level 4.2 3.6-5.0 MMOL/L Chloride Level 105 98-107 MMOL/L Carbon Dioxide Level 26 21-32 MMOL/L Anion Gap 10 5-14 MMOL/L Blood Urea Nitrogen 16 7-18 MG/DL Creatinine 0.82 0.60-1.30 MG/DL Estimat Glomerular Filtration Rate > 60 BUN/Creatinine Ratio 20 Glucose Level 102 70-105 MG/DL Calcium Level 9.6 8.5-10.1 MG/DL Corrected Calcium 8.5-10.1 MG/DL Total Bilirubin 0.6 0.1-1.0 MG/DL Aspartate Amino Transf (AST/SGOT) 21 5-34 U/L Alanine Aminotransferase (ALT/SGPT) 37 0-55 U/L Alkaline Phosphatase 83 40-136 U/L Total Protein 8.0 6.4-8.2 GM/DL Albumin 4.8 H 3.2-4.5 GM/DL Amylase Level 50 25-125 U/L Lipase 35 8-78 U/L Serum Test, Qualitative NEGATIVE NEGATIVE Urine Color YELLOW Urine Clarity CLEAR Urine pH 6.0 5-9 Urine Specific [place] 1.010 L 1.016-1.022 Urine Protein NEGATIVE NEGATIVE Urine Glucose (UA) NEGATIVE NEGATIVE Urine Ketones NEGATIVE NEGATIVE Urine Nitrite NEGATIVE NEGATIVE Urine Bilirubin NEGATIVE NEGATIVE Urine Urobilinogen 0.2 < = 1.0 MG/DL Urine Leukocyte Esterase NEGATIVE NEGATIVE Urine RBC (Auto) 1+ H NEGATIVE Urine RBC RARE /HPF Urine WBC NONE /HPF Urine Squamous Epithelial Cells 2-5 /HPF Urine Crystals NONE /LPF Urine Bacteria FEW H /HPF Urine Casts NONE /LPF Urine Mucus NEGATIVE /LPF Urine Culture Indicated NO (PALMER SANCHEZ) My Orders Orders - PALMER SANCHEZ Amylase (10/15/19 11:08) Cbc With Automated Diff (10/15/19 11:08) Comprehensive Metabolic Panel (10/15/19 11:08) Hcg,Qualitative Serum (10/15/19 11:08) Lipase (10/15/19 11:08) Ua Culture If Indicated (10/15/19 11:08) Ed Iv/Invasive Line Start (10/15/19 11:23) Ns Iv 1000 Ml (Sodium Chloride 0.9%) (10/15/19 11:23) Ketorolac Injection (Toradol Injection) (10/15/19 12:04) (DANIELPALMER) Vital Signs/I&O 10/15/19 10:25 Temp 37.7 Pulse 65 Resp 18 B/P (MAP) 158/75 (102) Pulse Ox 99 (PALMER SANCHEZ) Blood Pressure Mean: 102 Progress Progress Note : Time: 11:05 Progress Note Seen and evaluated. Ddx includes cystitis, ANTISQUEAK FILLER pelvic pain, IBS, Kidney/urethral stones, inguinal/femoral hernia, and appendicitis. Will order CBC, CMP, Urine test, and U/A. Clinical suspicion is low for appendicitis as it has been +24 hrs since onset of pain, pt is afebrile and has no PE findings that are positive for appendicitis. As such, any imaging will be deferred at this time pending lab results. Will order IV fluids. Will monitor. @12:20: Labs reviewed and results did not warrant further work up via imaging. Will order Toradol INJ for pain and monitor response at this time. @12:36: Reevaluated. Pt was laying down comfortably. She reports improvement of her pain after Toradol. Now rates her suprapubic abdominal pain a 3 out 10. And rates her IT band/iliopsoas pain a 5/10 with movement of her LLE but relatively pain free at rest. (JENARO BAEZ [facility]) Progress Note : Progress Note 1110 Patient report received from Medical Student, patient then evaluated by this provider, agreed with assessment findings. Will complete labs and then determine if Diagnostic imaging is indicated. 1145 WBC 6.2, remainder of Labs WNL. Will give Toradol 30 mg IV and reassessed. 1220 Pain improved after Toradol. Discharge instructions and return precautions reviewed with the patient and her significant other. Patient requesting note for work for today. (PALMER SANCHEZ) Departure Impression Primary Impression: Abdominal wall pain Additional Impression: Iliotibial band tendonitis Qualified Codes: M76.32 - Iliotibial band syndrome, left leg Disposition: HOME, SELF-CARE Condition: Improved Departure-Patient Inst. Decision time for Depature: 12:40 (PALMER SANCHEZ) Referrals: [facility] (PCP/Family) Primary Care Physician Patient Instructions: Iliotibial Band Syndrome (DC), Acute Abdomen (Belly Pain), Adult (DC) Add. Discharge Instructions: Take ibuprofen 600 mg alternating with Tylenol 650 mg every 4 hours for pain. Alternate ice pack and warm moist compression to the right hip every 2 hours for 20 minutes. [facility] symptoms are not improving or worsen. Return to the emergency department for new, urgent health care needs. All discharge instructions reviewed with patient and/or family. Voiced u nderstanding. Work/School Note: Work Release Form Date Seen in the Emergency Department: Oct 15, 2019 Return to Work: Oct 17, 2019 Restrictions: No Restrictions Patient assessed by this provider and medical student. Reviewed documentation by medical student, agreed with all documentation additional notes made by this provider. (PALMER SANCHEZ) JENARO BAEZ Informative Oct 15, 2019 11:34 PALMER SANCHEZ Oct 15, 2019 12:47
[2019-10-15 11:35] LABS: ALANINE AMINOTRANSFERASE 37 U/L (0-55); ALBUMIN 4.8 GM/DL (3.2-4.5); ALKALINE PHOSPHATASE 83 U/L (40-136); AMYLASE 50 U/L (25-125); BILIRUBIN,TOTAL 0.6 MG/DL (0.1-1.0); BUN/CREATININE RATIO 20; CALCIUM 9.6 MG/DL (8.5-10.1); CARBON DIOXIDE 26 MMOL/L (21-32); CHLORIDE 105 MMOL/L (98-107); CREATININE SERUM 0.82 MG/DL (0.60-1.30); GFR ESTIMATED > 60; GLUCOSE 102 MG/DL (70-105); LIPASE 35 U/L (8-78); POTASSIUM 4.2 MMOL/L (3.6-5.0); SODIUM 141 MMOL/L (135-145)
[2019-10-15] MEDS ORDERED: KETOROLAC 30 MG/ML VIAL IVP STA (12:04)
[2019-10-15 12:11] LABS: BILIRUBIN,URINE NEGATIVE (NEGATIVE); CLARITY,URINE CLEAR; COLOR,URINE YELLOW; GLUCOSE, URINE (UA) NEGATIVE (NEGATIVE); KETONES,URINE NEGATIVE (NEGATIVE); LEUKOCYTE ESTERASE ,URINE NEGATIVE (NEGATIVE); NITRITE,URINE NEGATIVE (NEGATIVE); PROTEIN,URINE NEGATIVE (NEGATIVE)
[2019-10-15 12:23] LABS: BACTERIA,URINE FEW /HPF; RBC,URINE RARE /HPF
[2019-10-15 13:08] VITALS: BP 158/75
== END 2019-10-15 13:08 | disposition home or self-care (01) ==
LOC: EDUNIT# 09:59 → ER 10:00
DX: R10.30 Lower abdominal pain, unspecified (principal); M76.32 Iliotibial band syndrome, left leg; I10 Essential (primary) hypertension; E11.9 Type 2 diabetes mellitus without complications; E03.9 Hypothyroidism, unspecified; F41.9 Anxiety disorder, unspecified; Z88.0 Allergy status to penicillin
CPT/HCPCS: 36415; 80053; 81000; 82150; 83690; 84703; 85025; 96361; 96374

== ENCOUNTER → 2019-10-16 | Outpatient (CLI) | payer BC ==
[~2019-10-16] MED LIST changes: +B/P MED; +CATHETER FLUSH 10 ML SYR IV PRN; +CHOLESTEROL MED; +HOLD METFORMIN - RECEIVED CONTRAST 20 ML VIAL IV SCH; +IOHEXOL 350 MG/ML 100 ML (OMNIPAQUE 350) VIAL IV ONE; +NS 100 ML (IVPB) BAG IV ONE
--- NOTE | 2019-10-16 13:55 | Diagnostic Imaging Report ---
PROCEDURE: CT abdomen and pelvis with contrast. TECHNIQUE: Multiple contiguous axial images were obtained through the abdomen and pelvis after administration of intravenous contrast. Auto Exposure Controls were utilized during the CT exam to meet ALARA standards for radiation dose reduction. INDICATION: Pelvic pain, particularly left lower quadrant. COMPARISON: No prior studies are available for comparison. FINDINGS: The lung bases are clear. The liver demonstrates generalized low density consistent with hepatic steatosis. No discrete liver mass is identified. Gallbladder is unremarkable. No biliary ductal dilatation is seen. The pancreas and spleen are unremarkable. No adrenal mass is identified. Kidneys are unremarkable. Aorta is non-aneurysmal. The small and large bowel loops are normal in caliber. There is no obstruction. No free fluid or fluid collection is identified. No inflammatory process is identified. Bladder is unremarkable. There appears to be a 3.7 cm fibroid in the right uterine body. No definite abdominal or pelvic lymphadenopathy is identified. IMPRESSION: 1. Hepatic steatosis. 2. Uterine fibroid. 3. No acute feature in the abdomen or pelvis is identified. Dictated by: Dictated on workstation # [id number]
== END ==
LOC: RAD 10:46
PROVIDERS: ATTEND Nurse Practitioner Primary Care
DX: K76.0 Fatty (change of) liver, not elsewhere classified (principal); D25.9 Leiomyoma of uterus, unspecified
CPT/HCPCS: 74177

== ENCOUNTER 2019-12-09 13:15 | Outpatient (CLI) | payer BC ==
[~2019-12-09] VITALS: Ht 152.4 cm; Wt 73.2 kg
[~2019-12-09 13:15] MED LIST changes: -CATHETER FLUSH 10 ML SYR IV PRN; -HOLD METFORMIN - RECEIVED CONTRAST 20 ML VIAL IV SCH; -IOHEXOL 350 MG/ML 100 ML (OMNIPAQUE 350) VIAL IV ONE; -NS 100 ML (IVPB) BAG IV ONE
[2019-12-09 14:03] LABS: BASOPHILS % (AUTO) 0 % (0-10); EOSINOPHILS # (AUTO) 0.4 10^3/uL (0.0-0.3); EOSINOPHILS % (AUTO) 6 % (0-10); HEMATOCRIT 37 % (35-52); HEMOGLOBIN 12.5 G/DL (11.5-16.0); LYMPHOCYTES # (AUTO) 1.9 X 10^3 (1.0-4.0); LYMPHOCYTES % (AUTO) 30 % (12-44); MEAN CORPUSCULAR HEMOGLOBIN 29 PG (25-34); MEAN CORPUSCULAR HGB CONC 33 G/DL (32-36); MEAN CORPUSCULAR VOLUME 87 FL (80-99); MEAN PLATELET VOLUME 10.8 FL (7.4-10.4); MONOCYTES # (AUTO) 0.4 X 10^3 (0.0-1.0); MONOCYTES % (AUTO) 7 % (0-12); NEUTROPHILS # (AUTO) 3.6 X 10^3 (1.8-7.8); NEUTROPHILS % (AUTO) 58 % (42-75); PLATELET COUNT 295 10^3/uL (130-400); RED CELL DISTRIBUTION WIDTH 13.4 % (10.0-14.5); WHITE BLOOD COUNT 6.3 10^3/uL (4.3-11.0)
[2019-12-09] MEDS ORDERED: LEVO100T7 PO (14:06)
[2019-12-09] MEDS ORDERED: LEVO88TA54 PO (14:06)
[2019-12-09] MEDS ORDERED: ATOR80TA76 PO (14:06)
[2019-12-09 14:08] VITALS: BP 159/90
== END 2019-12-09 14:00 | disposition home or self-care (01) ==
LOC: PREOP 13:15
PROVIDERS: ATTEND Obstetrics & Gynecology
DX: Z01.818 Encounter for other preprocedural examination (principal)
CPT/HCPCS: 36415; 85025; 86850; 86900; 86901; 87081

== ENCOUNTER 2020-10-25 12:40 | Inpatient (IN) | payer BC ==
[~2020-10-25] VITALS: Ht 152 cm; Wt 71.0 kg
[~2020-10-25 12:40] MED LIST changes: +ATOR80TA76 PO; +DCS100C PO; +IBUP-1780 PO; +LEVO100T7 PO; +LEVO88TA54 PO; +OXYC1TAB87 PO
[2020-10-25 14:16] LABS: BASOPHILS % (AUTO) 1 % (0-10); EOSINOPHILS # (AUTO) 0.6 10^3/uL (0.0-0.3); EOSINOPHILS % (AUTO) 11 % (0-10); HEMATOCRIT 41 % (35-52); HEMOGLOBIN 13.5 g/dL (11.5-16.0); LYMPHOCYTES # (AUTO) 1.8 10^3/uL (1.0-4.0); LYMPHOCYTES % (AUTO) 33 % (12-44); MEAN CORPUSCULAR HEMOGLOBIN 30 pg (25-34); MEAN CORPUSCULAR HGB CONC 33 g/dL (32-36); MEAN CORPUSCULAR VOLUME 90 fL (80-99); MEAN PLATELET VOLUME 10.9 fL (9.0-12.2); MONOCYTES # (AUTO) 0.3 10^3/uL (0.0-1.0); MONOCYTES % (AUTO) 6 % (0-12); NEUTROPHILS # (AUTO) 2.7 10^3/uL (1.8-7.8); NEUTROPHILS % (AUTO) 49 % (42-75); PLATELET COUNT 254 10^3/uL (130-400); WHITE BLOOD COUNT 5.4 10^3/uL (4.3-11.0)
[2020-10-25 14:41] LABS: ALANINE AMINOTRANSFERASE 71 U/L (0-55); ALBUMIN 4.8 GM/DL (3.2-4.5); ALKALINE PHOSPHATASE 118 U/L (40-136); BILIRUBIN,TOTAL 0.7 MG/DL (0.1-1.0); BUN/CREATININE RATIO 16; CALCIUM 9.7 MG/DL (8.5-10.1); CARBON DIOXIDE 30 MMOL/L (21-32); CHLORIDE 104 MMOL/L (98-107); CREATININE SERUM 0.88 MG/DL (0.60-1.30); GFR ESTIMATED > 60; GLUCOSE 91 MG/DL (70-105); MAGNESIUM 2.1 MG/DL (1.6-2.4); POTASSIUM 3.7 MMOL/L (3.6-5.0); SODIUM 140 MMOL/L (135-145); TOTAL PROTEIN 8.5 GM/DL (6.4-8.2)
[2020-10-25 14:42] LABS: INR 0.9 (0.8-1.4)
--- NOTE | 2020-10-25 14:51 | Diagnostic Imaging Report ---
INDICATION: Intermittent chest pain. TIME OF EXAM: 2:18 PM CORRELATION is made with prior chest 11/07/2018. FINDINGS: The heart size is normal. The pulmonary vascularity is unremarkable. The lungs are clear. No infiltrate, effusion or pneumothorax is detected. IMPRESSION: No acute cardiopulmonary process is detected. Dictated by: Dictated on workstation # [id number]
[2020-10-25] MEDS ORDERED: ENOXAPARIN 80 MG/0.8 ML (LOVENOX) SYR SC ONE (15:00)
[2020-10-25] MEDS ORDERED: meTOproloL SUCCINATE 50 MG (TOPROL XL) TAB PO SCH (15:00)
[2020-10-25] MEDS ORDERED: ASPIRIN 81 MG CHEW (CHILDREN'S ASA) PO ONE (15:00)
[2020-10-25] MEDS ORDERED: CLOPIDOGREL 300 MG (PLAVIX) TABLET PO ONE (15:00)
--- NOTE | 2020-10-25 15:13 | Consultation-Cardiology ---
HPI-Cardiology Cardiology Consultation: Date of Consultation 10/25/20 Time Seen by a Provider: 15:40 Date of Admission 10-25-2020 Attending Physician Admitting Physician [facility] Consulting Physician Shannon Cutler MD HPI: Chief Complaint: NSTEMI Ms. Yan is a 50 yr old primarily Ukrainian speaking female who I have seen and examined in the ED. Limited Azeri, therefore translation was utilized. She was tearful at the time of exam. She reports for several days she has been having intermittent episodes of chest pain, left sided, sharp lasting less than 2 minutes. No radiation. She reports the discomfort occurred off and on all night long last night. She states when the pain happens she feels SOB, but otherwise no SOB. Chest discomfort is not r/t activity or emotional stress. She reports MARQUEZ and episodes of dizziness. No syncope or near syncope. No LE swelling. She is currently not reporting any chest pain. She denies any fever or chills. Review of Systems-Cardiology Review of Systems Constitutional: No chills, No fever; malaise Ears/Nose/Throat: No epistaxis, No recent hearing loss Respiratory: As described under HPI Cardiovascular: As described under HPI Gastrointestinal: No diarrhea, No nausea, No vomiting Genitourinary: No dysuria, No hematuria Musculoskeletal: no symptoms reported Skin: No rash on exposed areas, No ulcerations on exposed areas Psychiatric/Neurological: No seizure, No focal weakness Hematologic: No bleeding abnormalities LHH-Uvzbdq-Aagddh Hx Patient Social History Alcohol Use: Denies Use Recreational Drug Use: No Type Used: Cigarettes 2nd Hand Smoke Exposure: No Recent Foreign Travel: No Recent Infectious Disease Expo: No Hospitalization with Isolation: Denies Immunizations Up To Date Tetanus Booster (TDap): Less than 5yrs Date of Influenza Vaccine: Jul 29, 2019 Past Medical History PMH As described under Assessment. Family Medical History Family Medical History: She reports her father had a CVA. Family History: Diabetes mellitus 19 MOTHER Hypertension 19 MOTHER Allergies and Home Medications Allergies Coded Allergies: Penicillins (Verified Allergy, Unknown, Rash, 12/09/19) lisinopril (Verified Allergy, Unknown, MADE TONGUE NUMB FEELING, 12/09/19) Home Medications Atorvastatin Calcium 80 Mg Tablet, 80 MG PO DAILY, (Reported) Docusate Sodium 100 Mg Capsule, 100 MG PO BID Prescribed by: JACKI SOUSA on 12/16/19 0809 Ibuprofen 800 Mg Tablet, 800 MG PO Q8H Prescribed by: JACKI VIVASS on 12/16/19 08 Levothyroxine Sodium 100 Mcg Tablet, 100 MCG PO DAILY, (Reported) Levothyroxine Sodium 88 Mcg Tablet, 88 MCG PO DAILY, (Reported) Oxycodone HCl/Acetaminophen 1 Each Tablet, 1 TAB PO Q4H Prescribed by: JACKI VIVASS on 12/16/19808 Physical Exam-Cardiology Physical Exam Vital Signs/I&O 10/25/20 10/26/20 10/26/20 10/26/20 23:38 00:07 01:00 03:57 Temp 36.1 35.9 Pulse 56 61 54 64 Resp 19 21 21 B/P (MAP) 154/80 (104) 128/79 (95) 136/71 (92) Pulse Ox 97 97 97 O2 Delivery Room Air Room Air Room Air 10/26/20 10/26/20 10/26/20 06:52 08:16 09:00 Temp 35.5 Pulse 63 58 Resp 18 B/P (MAP) 141/79 (99) Pulse Ox 98 O2 Delivery Room Air Room Air 10/26/20 00:00 Intake Total 300 ml Output Total 300 ml Balance 0 ml Capillary Refill : Less Than 3 Seconds Constitutional: AAO x 3, well-developed, well-nourished HEENT: PERRL, hearing is well preserved, oral hygience is good Neck: No carotid bruit; carotid pulses are 2 + bilaterally Respiratory: No accessory muscle use, No respiratory distress; chest expansion is symmetric, chest is bilaterally symmetric, lungs clear to auscultation Cardiovascular: regular rate-rhythm; No JVD; S1 and S2 Gastrointestinal: No tender; soft, round, audible bowel sounds Extremities: no lower extremity edema bilateral Neurologic/Psychiatric: grossly intact (moves all extremities) Skin: No rash on exposed areas, No ulcerations on exposed areas Data Review Labs Laboratory Tests 10/25/20 14:00: White Blood Count 5.4, Red Blood Count 4.51, Hemoglobin 13.5, Hematocrit 41, Mean Corpuscular Volume 90, Mean Corpuscular Hemoglobin 30, Mean Corpuscular Hemoglobin Concent 33, Red Cell Distribution Width 13.4, Platelet Count 254, Mean Platelet Volume 10.9, Immature Granulocyte % (Auto) 0, Neutrophils (%) (Auto) 49, Lymphocytes (%) (Auto) 33, Monocytes (%) (Auto) 6, Eosinophils (%) (Auto) 11H, Basophils (%) (Auto) 1, Neutrophils # (Auto) 2.7, Lymphocytes # (Auto) 1.8, Monocytes # (Auto) 0.3, Eosinophils # (Auto) 0.6H, Basophils # (Auto) 0.0, Immature Granulocyte # (Auto) 0.0, Prothrombin Time 13.0, INR Comment 0.9, Activated Partial Thromboplast Time 37H, Sodium Level 140, Potassium Level 3.7, Chloride Level 104, Carbon Dioxide Level 30, Anion Gap 6, Blood Urea Nitrogen 14, Creatinine 0.88, Estimat Glomerular Filtration Rate > 60, BUN/Creatinine Ratio 16, Glucose Level 91, Calcium Level 9.7, Corrected Calcium , Magnesium Level 2.1, Total Bilirubin 0.7, Aspartate Amino Transf (AST/SGOT) 34, Alanine Aminotransferase (ALT/SGPT) 71H, Alkaline Phosphatase 118, Myoglobin 38.0, Troponin I 0.255H, Total Protein 8.5H, Albumin 4.8H, Thyroid Stimulating Hormone (TSH) 35.46H, Free Thyroxine 1.07 10/25/20 20:50: Troponin I 0.339*H 10/26/20 04:27: White Blood Count 5.8, Red Blood Count 4.39, Hemoglobin 13.2, Hematocrit 39, Mean Corpuscular Volume 89, Mean Corpuscular Hemoglobin 30, Mean Corpuscular Hemoglobin Concent 34, Red Cell Distribution Width 13.5, Platelet Count 248, Mean Platelet Volume 11.3, Prothrombin Time 13.5, INR Comment 1.0, Sodium Level 139, Potassium Level 3.7, Chloride Level 107, Carbon Dioxide Level 23, Anion Gap 9, Blood Urea Nitrogen 14, Creatinine 0.79, Estimat Glomerular Filtration Rate > 60, BUN/Creatinine Ratio 18, Glucose Level 100, Calcium Level 9.5, Corrected Calcium 9.3, Magnesium Level 2.0, Total Bilirubin 0.7, Aspartate Amino Transf (AST/SGOT) 37H, Alanine Aminotransferase (ALT/SGPT) 63H, Alkaline Phosphatase 109, Total Protein 7.7, Albumin 4.3, Triglycerides Level 298H, Cholesterol Level 293H, LDL Cholesterol Direct 218H, VLDL Cholesterol 60H, HDL Cholesterol 45 Radiology NAME: EDWINA YAN [facility] REC#: [id number] PT STATUS: REG ER : 1970 PHYSICIAN: TETE BUTLER MD ADMIT DATE: 10/25/20/ER Draft Date of Exam:10/25/20 CHEST 1 VIEW, AP/PA ONLY INDICATION: Intermittent chest pain. TIME OF EXAM: 2:18 PM CORRELATION is made with prior chest 11/07/2018. FINDINGS: The heart size is normal. The pulmonary vascularity is unremarkable. The lungs are clear. No infiltrate, effusion or pneumothorax is detected. IMPRESSION: No acute cardiopulmonary process is detected. Dictated on workstation # [id number] Dict: 10/25/20 1447 Trans: 10/25/20 1450 [id number] [id number] Interpreted by: TALIA DUMONT MD Electronically signed by: A/P-Cardiology Assessment/Admission Diagnosis NSTEMI Hypothyroidism - TSH is 35.46 on lab of 10-25-2020 HTN HLD Family h/o father having a CVA H/o hysterectomy Discussion and Recomendations NSTEMI Start ASA and Plavix and Lovenox Advised cardiac cath to further evaluate coronaries. I have discussed the procedure, risks, benefits and potential complications of cardiac cath with possible percutaneous intervention via translation services, she does verbalize understanding Echocardiogram to eval structure and function Uncontrolled BP - add BB Continue statin PPI Monitor lab closely, replace electrolytes as indicated Managment of MARQUEZ is with medical services Further recs will be based on her hospital course We would like to thank medical services for this consults GEORGI LIPSCOMB Oct 25, 2020 15:13
[2020-10-25 15:32] LABS: FREE T4 (FREE THYROXINE) 1.07 NG/DL (0.70-1.48)
--- NOTE | 2020-10-25 16:04 | ED Chest Pain ---
General Chief Complaint: Chest Pain Stated Complaint: CP X 8 DAYS Nursing Triage Note: Patient reports L intermittent chest pain x 8 days. denies SOA, N/V. reports the pain stays no more than 2 minutes when it comes. Nursing Sepsis Screen: No Definite Risk Source: patient, geosciences professor Exam Limitations: language barrier History of Present Illness Date Seen by Provider: Oct 25, 2020 Time Seen by Provider: 12:57 Initial Comments This 50-year-old woman presents to the emergency room with intermittent left- sided chest pain over the past 8 days. The last episode was at 05: 00 this morning. It was sharp in nature and lasted less than 2 minutes. Prior to that she also reports having a pain in her neck and pain that radiated down her left side all the way down her leg. She has hypertension and hyperlipidemia but based on her given history it seems as though she has not been very compliant with her medications. She did take an aspirin yesterday and her blood pressure medication yesterday. She receives her primary care at [facility]. She denies any history of cardiac problems. Allergies and Home Medications Allergies Coded Allergies: Penicillins (Verified Allergy, Unknown, Rash, 12/09/19) lisinopril (Verified Allergy, Unknown, MADE TONGUE NUMB FEELING, 12/09/19) Home Medications Atorvastatin Calcium 80 Mg Tablet, 80 MG PO DAILY, (Reported) Docusate Sodium 100 Mg Capsule, 100 MG PO BID Prescribed by: JACKI SOUSA on 12/16/19808 Ibuprofen 800 Mg Tablet, 800 MG PO Q8H Prescribed by: JACKI SOUSA on 12/16/19808 Levothyroxine Sodium 100 Mcg Tablet, 100 MCG PO DAILY, (Reported) Levothyroxine Sodium 88 Mcg Tablet, 88 MCG PO DAILY, (Reported) Oxycodone HCl/Acetaminophen 1 Each Tablet, 1 TAB PO Q4H Prescribed by: JACKI SOUSA on 12/16/19 08 Patient Home Medication List Home Medication List Reviewed: Yes Review of Systems Review of Systems Constitutional: no symptoms reported EENTM: No Symptoms Reported Respiratory: No Symptoms Reported Cardiovascular: See HPI Gastrointestinal: No Symptoms Reported Genitourinary: No Symptoms Reported Musculoskeletal: no symptoms reported Skin: no symptoms reported Psychiatric/Neurological: See HPI Endocrine: No Symptoms Reported Hematologic/Lymphatic: No Symptoms Reported Past Phdkvki-Ifyzxo-Lplbam Hx Past Med/Social Hx: Reviewed Nursing Past Med/Soc Hx Patient Social History Alcohol Use: Denies Use Recreational Drug Use: No Type Used: Cigarettes 2nd Hand Smoke Exposure: No Recent Foreign Travel: No Contact w/Someone Who Travel: No Recent Infectious Disease Expo: No Recent Hopitalizations: No Immunizations Up To Date Tetanus Booster (TDap): Less than 5yrs Date of Influenza Vaccine: Jul 29, 2019 Seasonal Allergies Seasonal Allergies: No Past Medical History Surgeries: Yes (thumb sx) Section Respiratory: No Cardiac: Yes Hypertension Neurological: No Reproductive Disorders: No Female Reproductive Disorders: Denies Sexually Transmitted Disease: No HIV/AIDS: No Genitourinary: No Gastrointestinal: No Musculoskeletal: No Endocrine: Yes (gestational diabetes) Hypothyroidsim, Diabetes, Non-Insulin dep HEENT: No Cancer: No Psychosocial: Yes Anxiety Integumentary: No Blood Disorders: No Family Medical History Diabetes mellitus 19 MOTHER Hypertension 19 MOTHER Physical Exam Vital Signs Vital Signs - First Documented 10/25/20 13:06 Pulse 64 Resp 18 B/P (MAP) 154/96 (115) Pulse Ox 99 Capillary Refill : Less Than 3 Seconds Height, Weight, BMI Height: 5'1.00" Weight: 170lbs. oz. 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 Norm as Tested Skin: Normal Color, Warm/Dry Progress/Results/Core Measures Results/Orders Lab Results Laboratory Tests Test 10/25/20 14:00 Range/Units White Blood Count 5.4 4.3-11.0 10^3/uL Red Blood Count 4.51 3.80-5.11 10^6/uL Hemoglobin 13.5 11.5-16.0 g/dL Hematocrit 41 35-52 % Mean Corpuscular Volume 90 80-99 fL Mean Corpuscular Hemoglobin 30 25-34 pg Mean Corpuscular Hemoglobin Concent 33 32-36 g/dL Red Cell Distribution Width 13.4 10.0-14.5 % Platelet Count 254 130-400 10^3/uL Mean Platelet Volume 10.9 9.0-12.2 fL Immature Granulocyte % (Auto) 0 % Neutrophils (%) (Auto) 49 42-75 % Lymphocytes (%) (Auto) 33 12-44 % Monocytes (%) (Auto) 6 0-12 % Eosinophils (%) (Auto) 11 H 0-10 % Basophils (%) (Auto) 1 0-10 % Neutrophils # (Auto) 2.7 1.8-7.8 10^3/uL Lymphocytes # (Auto) 1.8 1.0-4.0 10^3/uL Monocytes # (Auto) 0.3 0.0-1.0 10^3/uL Eosinophils # (Auto) 0.6 H 0.0-0.3 10^3/uL Basophils # (Auto) 0.0 0.0-0.1 10^3/uL Immature Granulocyte # (Auto) 0.0 0.0-0.1 10^3/uL Prothrombin Time 13.0 12.2-14.7 SEC INR Comment 0.9 0.8-1.4 Activated Partial Thromboplast Time 37 H 24-35 SEC Sodium Level 140 135-145 MMOL/L Potassium Level 3.7 3.6-5.0 MMOL/L Chloride Level 104 98-107 MMOL/L Carbon Dioxide Level 30 21-32 MMOL/L Anion Gap 6 5-14 MMOL/L Blood Urea Nitrogen 14 7-18 MG/DL Creatinine 0.88 0.60-1.30 MG/DL Estimat Glomerular Filtration Rate > 60 BUN/Creatinine Ratio 16 Glucose Level 91 70-105 MG/DL Calcium Level 9.7 8.5-10.1 MG/DL Corrected Calcium 8.5-10.1 MG/DL Magnesium Level 2.1 1.6-2.4 MG/DL Total Bilirubin 0.7 0.1-1.0 MG/DL Aspartate Amino Transf (AST/SGOT) 34 5-34 U/L Alanine Aminotransferase (ALT/SGPT) 71 H 0-55 U/L Alkaline Phosphatase 118 40-136 U/L Myoglobin 38.0 10.0-92.0 NG/ML Troponin I 0.255 H <0.028 NG/ML Total Protein 8.5 H 6.4-8.2 GM/DL Albumin 4.8 H 3.2-4.5 GM/DL Thyroid Stimulating Hormone (TSH) 35.46 H 0.35-4.94 UIU/ML Free Thyroxine 1.07 0.70-1.48 NG/DL My Orders Orders - TETE BUTLER MD Cbc With Automated Diff (10/25/20 12:57) Magnesium (10/25/20 12:57) Chest 1 View, Ap/Pa Only (10/25/20 12:57) Ekg Tracing (10/25/20 12:57) Comprehensive Metabolic Panel (10/25/20 12:57) Myoglobin Serum (10/25/20 12:57) Protime With Inr (10/25/20 12:57) Partial Thromboplastin Time (10/25/20 12:57) O2 (10/25/20 12:57) Monitor-Rhythm Ecg Trace Only (10/25/20 12:57) Ed Iv/Invasive Line Start (10/25/20 12:57) Troponin I (10/25/20 12:57) Aspirin Chewable Tablet (Baby Aspirin Ch (10/25/20 15:00) Thyroid Stimulating Hormone (10/25/20 14:54) Free T4 (Free Thyroxine) (10/25/20 14:54) Clopidogrel Tablet (Plavix Tablet) (10/25/20 15:00) Metoprolol Succinate (Xl) Tab (Toprol Xl (10/25/20 15:00) Enoxaparin Injection (Lovenox Injection) (10/25/20 15:00) Medications Given in ED Vital Signs/I&O 10/25/20 13:06 Pulse 64 Resp 18 B/P (MAP) 154/96 (115) Pulse Ox 99 Blood Pressure Mean: 115 Progress Progress Note : Time: 15:10 Progress Note Troponin returned elevated. Case was discussed with Dr. Cutler who recommended Plavix 300 mg, weight-based Lovenox, and Toprol-XL 50 mg. These medications were all administered in the ER. Situation was reviewed with the patient via the geosciences professor. She is agreeable to admission. I discussed the case with her as well. Questions were answered. Initial ECG Impression Date: Oct 25, 2020 Initial ECG Impression Time: 13:07 Initial ECG Rate: 68 Initial ECG Rhythm: Normal Sinus Initial ECG Intervals: Normal Initial ECG Impression: Normal Comment Normal sinus rhythm with no ST elevation or depression. No abnormal intervals or axis deviation. Diagnostic Imaging Diagonstic Imaging: Xray Plain Films/CT/US/NM/MRI: chest Comments NAME: [facility] REC#: [id number] PT STATUS: REG ER : 1970 PHYSICIAN: TETE BUTLER MD ADMIT DATE: 10/25/20/ER Signed Date of Exam:10/25/20 CHEST 1 VIEW, AP/PA ONLY INDICATION: Intermittent chest pain. TIME OF EXAM: 2:18 PM CORRELATION is made with prior chest 11/07/2018. FINDINGS: The heart size is normal. The pulmonary vascularity is unremarkable. The lungs are clear. No infiltrate, effusion or pneumothorax is detected. IMPRESSION: No acute cardiopulmonary process is detected. Dictated by: Dictated on workstation # [id number] Dict: 10/25/20 1447 Trans: 10/25/20 1531 [facility] [id number] Interpreted by: TALIA DUMONT MD Electronically signed by: TALIA DUMONT MD 10/25/20 1531 Reviewed: Reviewed by Me Departure Communication (Admissions) Time/Spoke to Admitting Phy: 16:03 Dr. Melendez Time/Spoke to Consulting Phy: 15:00 Dr. Cutler Impression Primary Impression: NSTEMI (non-ST elevated myocardial infarction) Disposition: 09 ADMITTED INPATIENT Condition: Improved Admissions Decision to Admit Reason: Admit from ER (General) Decision to Admit/Date: Oct 25, 2020 Time/Decision to Admit Time: 14:50 Departure-Patient Inst. Referrals: [facility] (PCP/Family) Primary Care Physician Copy Copies To 1: ROSITA KING JOSHUA T MD Oct 25, 2020 16:04
[2020-10-25] MEDS ORDERED: ACETAMINOPHEN 325 MG TABLET PO PRN (16:30)
--- NOTE | 2020-10-25 17:10 | NUR ---
Used language line to admit pt at this time.
[2020-10-25] MEDS ORDERED: ENOXAPARIN 80 MG/0.8 ML (LOVENOX) SYR SC SCH (17:15)
[2020-10-25 17:35] VITALS: BP 155/91
[2020-10-25] MEDS ORDERED: ONDANSETRON 4 MG/2 ML (SDV) Z0FRAN IV PRN (17:45)
[2020-10-25] MEDS ORDERED: NITROGLYCERIN 0.4 MG SL TABS BTL 25'S SL PRN (17:45)
[2020-10-25] MEDS ORDERED: morphine INJ 4 MG/ML 1 ML (VIAL/SYRINGE) IV PRN (17:45)
--- NOTE | 2020-10-25 18:24 | Consultation-Cardiology ---
HPI-Cardiology Cardiology Consultation: Date of Consultation 10/25/20 Time Seen by a Provider: 17:50 Date of Admission Attending Physician Mi Melendez DO Admitting Physician [facility] Consulting Physician GELY TAYLOR MD, MA, FACP, FACC, [facility], CCDS Physician requesting consult: [facility] Hospitalist Service HPI: Chief Complaint: Reason for consultation: NSTEMI HPI Ms. Yan is a 50 yr old primarily Qatari speaking female who I have seen and examined in the ED. Her Maori is extremely limited. I communicated with her in detail utilizing a telephonic dance master She reports for several days she has been having intermittent episodes of chest pain, left sided, sharp lasting less than 2 minutes. No radiation. She reports the discomfort occurred off and on all night long last night. She states when the pain happens she feels SOB, but otherwise no SOB. Chest discomfort is not r/t activity or emotional stress. She reports MARQUEZ and episodes of dizziness. No syncope or near syncope. No LE swelling. She is currently not reporting any chest pain. She denies any fever or chills. Review of Systems-Cardiology Review of Systems Constitutional: No chills, No fever; malaise Ears/Nose/Throat: No epistaxis, No recent hearing loss Respiratory: As described under HPI Cardiovascular: As described under HPI Gastrointestinal: No diarrhea, No nausea, No vomiting Genitourinary: No dysuria, No hematuria Musculoskeletal: no symptoms reported Skin: No rash on exposed areas, No ulcerations on exposed areas Psychiatric/Neurological: No seizure, No focal weakness Hematologic: No bleeding abnormalities GSZ-Kdvdiy-Yqizoy Hx Patient Social History Alcohol Use: Denies Use Recreational Drug Use: No Type Used: Cigarettes 2nd Hand Smoke Exposure: No Recent Foreign Travel: No Recent Infectious Disease Expo: No Hospitalization with Isolation: Denies Immunizations Up To Date Tetanus Booster (TDap): Less than 5yrs Date of Influenza Vaccine: Jul 29, 2019 Past Medical History PMH As described under Assessment. Family Medical History Family Medical History: She reports her father had a CVA. Family History: Diabetes mellitus 19 MOTHER Hypertension 19 MOTHER Allergies and Home Medications Allergies Coded Allergies: Penicillins (Verified Allergy, Unknown, Rash, 12/09/19) lisinopril (Verified Allergy, Unknown, MADE TONGUE NUMB FEELING, 12/09/19) Home Medications Atorvastatin Calcium 80 Mg Tablet, 80 MG PO DAILY, (Reported) Docusate Sodium 100 Mg Capsule, 100 MG PO BID Prescribed by: JACKI SOUSA on 12/16/19808 Ibuprofen 800 Mg Tablet, 800 MG PO Q8H Prescribed by: JACKI SOUSA on 12/16/19808 Levothyroxine Sodium 100 Mcg Tablet, 100 MCG PO DAILY, (Reported) Levothyroxine Sodium 88 Mcg Tablet, 88 MCG PO DAILY, (Reported) Oxycodone HCl/Acetaminophen 1 Each Tablet, 1 TAB PO Q4H Prescribed by: JACKI SOUSA on 12/16/19808 Patient Home Medication List Home Medication List Reviewed: Yes Physical Exam-Cardiology Physical Exam Vital Signs/I&O 10/25/20 10/25/20 10/25/20 13:06 17:05 17:35 Pulse 64 59 59 Resp 18 15 15 B/P (MAP) 154/96 (115) 155/91 (115) 155/91 Pulse Ox 99 99 99 Capillary Refill : Less Than 3 Seconds Constitutional: AAO x 3, well-developed, well-nourished HEENT: PERRL, hearing is well preserved, oral hygience is good Neck: No carotid bruit; carotid pulses are 2 + bilaterally Respiratory: No accessory muscle use, No respiratory distress; chest expansion is symmetric, chest is bilaterally symmetric, lungs clear to auscultation Cardiovascular: regular rate-rhythm; No JVD; S1 and S2 Gastrointestinal: No tender; soft, round, audible bowel sounds Extremities: no lower extremity edema bilateral Neurologic/Psychiatric: grossly intact (moves all extremities) Skin: No rash on exposed areas, No ulcerations on exposed areas Data Review Labs Laboratory Tests 10/25/20 14:00: White Blood Count 5.4, Red Blood Count 4.51, Hemoglobin 13.5, Hematocrit 41, Mean Corpuscular Volume 90, Mean Corpuscular Hemoglobin 30, Mean Corpuscular Hemoglobin Concent 33, Red Cell Distribution Width 13.4, Platelet Count 254, Mean Platelet Volume 10.9, Immature Granulocyte % (Auto) 0, Neutrophils (%) (Auto) 49, Lymphocytes (%) (Auto) 33, Monocytes (%) (Auto) 6, Eosinophils (%) (Auto) 11H, Basophils (%) (Auto) 1, Neutrophils # (Auto) 2.7, Lymphocytes # (Auto) 1.8, Monocytes # (Auto) 0.3, Eosinophils # (Auto) 0.6H, Basophils # (Auto) 0.0, Immature Granulocyte # (Auto) 0.0, Prothrombin Time 13.0, INR Comment 0.9, Activated Partial Thromboplast Time 37H, Sodium Level 140, Potassium Level 3.7, Chloride Level 104, Carbon Dioxide Level 30, Anion Gap 6, Blood Urea Nitrogen 14, Creatinine 0.88, Estimat Glomerular Filtration Rate > 60, BUN/Creatinine Ratio 16, Glucose Level 91, Calcium Level 9.7, Corrected Calcium , Magnesium Level 2.1, Total Bilirubin 0.7, Aspartate Amino Transf ( T/SGOT) 34, Alanine Aminotransferase (ALT/SGPT) 71H, Alkaline Phosphatase 118, Myoglobin 38.0, Troponin I 0.255H, Total Protein 8.5H, Albumin 4.8H, Thyroid Stimulating Hormone (TSH) 35.46H, Free Thyroxine 1.07 A/P-Cardiology Assessment/Admission Diagnosis NSTEMI Hypothyroidism - TSH is 35.46 on lab of 10-25-2020 HTN HLD Family h/o father having a CVA H/o hysterectomy Discussion and Recomendations Start ASA and Plavix and Lovenox Advised cardiac cath to further evaluate coronaries. I discussed with her in detail, with the help of a dance master, the procedure, risks, benefits and potential complications of cardiac cath with possible percutaneous intervention. Questions answered in detail. She understands and provides informed consent Echocardiogram to eval structure and function Uncontrolled BP - add BB Continue statin PPI Monitor lab closely, replace electrolytes as indicated Management of MARQUEZ is with Medical services We would like to thank Medical services for this consult Clinical Quality Measures DVT/VTE Risk/Contraindication: Risk Factor Score Per Nursin RFS Level Per Nursing on Admit: 4+=Very High GELY TAYLOR MD [facility] Oct 25, 2020 6:24 pm
[2020-10-25 19:00] VITALS: BP 144/84
[2020-10-25] MEDS ORDERED: ONDANSETRON 4 MG/2 ML (SDV) Z0FRAN IVP PRN (20:45)
[2020-10-25] MEDS ORDERED: DOCUSATE SODIUM 100 MG (COLACE) CAP PO PRN (20:45)
[2020-10-25] MEDS ORDERED: diphenhydrAMINE 25 MG TAB (BENADRYL) PO PRN (20:45)
[2020-10-25] MEDS ORDERED: HYDROcodone/APAP 5 MG/325 MG (LORTAB) TAB PO PRN (20:45)
--- NOTE | 2020-10-25 20:45 | History & Physical-Hospitalist ---
History of Present Illness HPI/Chief Complaint CC: Chest pain with elevated troponin HPI: This is a 50yoHF who has a h/o DM and neuropathy who presented to the ER with typical angina chest pain and was found to have an elevated troponin and will need cath tomorrow. Language line used and apparently she does not smoke and no etoh and is . Source: patient Exam Limitations: language barrier Date Seen 10/25/20 Time Seen by a Provider: 18:15 Attending Physician Mi Melendez DO [facility] [place] [facility] Referring Physician Date of Admission Oct 25, 2020 at 15:00 Home Medications & Allergies Home Medications Reviewed patient Home Medication Reconciliation performed by pharmacy medication reconciliations cardiology technician and/or nursing. Patients Allergies have been reviewed. Allergies Allergies Coded Allergies Penicillins (Verified Allergy, Unknown, Rash, 12/09/19) lisinopril (Verified Allergy, Unknown, MADE TONGUE NUMB FEELING, 12/09/19) Past Ffejtve-Iosuwg-Clfohd Hx Past Med/Social Hx: Reviewed Nursing Past Med/Soc Hx, Reviewed and Corrections made Patient Social History Marrital Status: Alcohol Use: Denies Use Recreational Drug Use: No Smoking Status: Never a Smoker Type Used: Cigarettes 2nd Hand Smoke Exposure: No Recent Foreign Travel: No Contact w/other who traveled: No Recent Hopitalizations: No Recent Infectious Disease Expo: No Immunizations Up To Date Tetanus Booster (TDap): Less than 5yrs Date of Influenza Vaccine: Jul 29, 2019 Seasonal Allergies Seasonal Allergies: No Past Medical History Surgeries: Section Cardiac: Hypertension Neurological: Neuropathy Reproductive: No Sexually Transmitted Disease: No HIV/AIDS: No Female Reproductive Disorders: Denies Endocrine: Hypothyroidsim, Diabetes, Non-Insulin dep Psychosocial: Anxiety History of Blood Disorders: No Family History Diabetes mellitus 19 MOTHER Hypertension 19 MOTHER Review of Systems Constitutional: see HPI, malaise, weakness Cardiovascular: chest pain Physical Exam Physical Exam Vital Signs Vital Signs - First Documented 10/25/20 10/25/20 13:06 19:00 Temp 36.1 Pulse 64 Resp 18 B/P (MAP) 154/96 (115) Pulse Ox 99 O2 Delivery Room Air Capillary Refill : Less Than 3 Seconds Height, Weight, BMI Height: 5'1.00" Weight: 170lbs. oz. 77.790360vy; 31.68 BMI Method:Stated General Appearance: No Apparent Distress Eyes: Right Eye Normal Inspection, Right Eye PERRL HEENT: PERRL/EOMI, TMs Normal, Normal ENT Inspection, Pharynx Normal, Moist Mucous Membranes Neck: Full Range of Motion, Normal Inspection, Non Tender Respiratory: Chest Non Tender, Lungs Clear, Normal Breath Sounds, No Accessory Muscle Use, No Respiratory Distress Cardiovascular: Regular Rate, Rhythm, No Edema, No Gallop, No JVD, No Murmur, Normal Peripheral Pulses Gastrointestinal: Normal Bowel Sounds, No Organomegaly, No Pulsatile Mass, Non Tender, Soft Back: Normal Inspection, No CVA Tenderness, No Vertebral Tenderness Extremity: Normal Capillary Refill, Normal Inspection, Normal Range of Motion, Non Tender, No Calf Tenderness, No Pedal Edema Neurologic/Psychiatric: Alert, Oriented x3, No Motor/Sensory Deficits, Normal Mood/Affect Skin: Normal Color, Warm/Dry Lymphatic: No Adenopathy Results Results/Procedures Labs Laboratory Tests 10/25/20 14:00 Patient resulted labs reviewed. Assessment/Plan Admission Diagnosis Assessment: Chest pain Elevated troponin DM Neuropathy Plan: Cath tomorrow Monitor BP and sugar Admission Status: Inpatient Order (span 2 midnights) Reason for Inpatient Admission: NSTEMI Diagnosis/Problems Diagnosis/Problems (1) NSTEMI (non-ST elevated myocardial infarction) Status: Acute Clinical Quality Measures DVT/VTE Risk/Contraindication: Risk Factor Score Per Nursin RFS Level Per Nursing on Admit: 4+=Very High MI MELENDEZ DO Oct 25, 2020 20:44
[2020-10-25 23:38] VITALS: BP 154/80
[2020-10-26] VITALS (16 sets, daily range): BP systolic 125–158; BP diastolic 71–95
[2020-10-26 04:43] LABS: HEMOGLOBIN 13.2 g/dL (11.5-16.0); MEAN PLATELET VOLUME 11.3 fL (9.0-12.2); WHITE BLOOD COUNT 5.8 10^3/uL (4.3-11.0)
[2020-10-26] MEDS ORDERED: ENOXAPARIN 80 MG/0.8 ML (LOVENOX) SYR SC SCH (05:00)
[2020-10-26 05:04] LABS: PROTHROMBIN TIME PATIENT 13.5 SEC (12.2-14.7)
[2020-10-26 05:14] LABS: ALANINE AMINOTRANSFERASE 63 U/L (0-55); ALBUMIN 4.3 GM/DL (3.2-4.5); ALKALINE PHOSPHATASE 109 U/L (40-136); BILIRUBIN,TOTAL 0.7 MG/DL (0.1-1.0); BUN/CREATININE RATIO 18; CALCIUM 9.5 MG/DL (8.5-10.1); CARBON DIOXIDE 23 MMOL/L (21-32); CHLORIDE 107 MMOL/L (98-107); CHOLESTEROL 293 MG/DL (< 200); CREATININE SERUM 0.79 MG/DL (0.60-1.30); GFR ESTIMATED > 60; GLUCOSE 100 MG/DL (70-105); HDL CHOLESTEROL 45 MG/DL (40-60); POTASSIUM 3.7 MMOL/L (3.6-5.0); SODIUM 139 MMOL/L (135-145); TOTAL PROTEIN 7.7 GM/DL (6.4-8.2); TRIGLYCERIDES 298 MG/DL (<150); VLDL CHOLESTEROL 60 MG/DL (5-40)
--- NOTE | 2020-10-26 05:55 | Progress Note - Hospitalist ---
Subjective HPI/CC On Admission Date Seen by Provider: Oct 26, 2020 Time Seen by Provider: 09:00 CC: Chest pain with elevated troponin HPI: This is a 50yoHF who has a h/o DM and neuropathy who presented to the ER with typical angina chest pain and was found to have an elevated troponin and will need cath tomorrow. Language line used and apparently she does not smoke and no etoh and is . Subjective/Events-last exam Pt reports some mild chest pain Catheterization scheduled for noon today HgbA1C ordered Elevated liver enzymes noted slightly Significant hyperlipidemia noted Review of Systems General: Fatigue, Malaise Cardiovascular: Chest Pain Objective Exam Vital Signs Vital Signs Date Time Temp Pulse Resp B/P (MAP) Pulse Ox O2 Delivery O2 Flow Rate FiO2 10/26/20 20:10 35.6 67 18 154/86 (108) 95 10/26/20 16:39 Room Air Capillary Refill : Less Than 3 Seconds General Appearance: No Apparent Distress, WD/WN Respiratory: Lungs Clear Cardiovascular: Regular Rate, Rhythm Results/Procedures Lab Laboratory Tests 10/26/20 04:27 Patient resulted labs reviewed. Assessment/Plan Assessment and Plan Assess & Plan/Chief Complaint Assessment: Chest pain Elevated troponin DM Neuropathy Plan: Cath tomorrow Monitor BP and sugar 10/26/20: Cath today Monitor sugar HGA1C Diagnosis/Problems Diagnosis/Problems (1) NSTEMI (non-ST elevated myocardial infarction) Status: Acute Clinical Quality Measures DVT/VTE Risk/Contraindication: Risk Factor Score Per Nursin RFS Level Per Nursing on Admit: 4+=Very High ESTRADA HAWK DO Oct 26, 2020 05:55
[2020-10-26] MEDS ORDERED: NS IV 1000 ML 1,000 ML IV SCH ×2 (06:00→16:30)
--- NOTE | 2020-10-26 06:34 | NUR ---
THIS RN UPDATED PATIENT'S ON VISITOR POLICY AND ON PATIENT'S STATUS. NO COMPLAINTS OF CHEST PAIN THROUGHOUT THE NIGHT, PATIENT'S VITAL SIGNS STABLE. WILL CONTINUE TO MONITOR.
[2020-10-26] MEDS: ASPIRIN 81 MG CHEW (CHILDREN'S ASA) PO SCH (08:37)
[2020-10-26] MEDS: PANTOPRAZOLE 40 MG (PROTONIX) TAB PO SCH (08:37)
[2020-10-26] MEDS: meTOproloL SUCCINATE 50 MG (TOPROL XL) TAB PO SCH ×2 (08:37→08:38)
[2020-10-26] MEDS ORDERED: LIDOCAINE 1% INJ 20 ML 20 ML VIAL ONE (10:14)
[2020-10-26] MEDS ORDERED: HEParin (CATH LAB) 2,000 ML IV ONE (10:14)
[2020-10-26] MEDS ORDERED: fentaNYL INJECTION 100 MCG/2 ML AMP ONE ×2 (11:04→14:05)
[2020-10-26] MEDS ORDERED: MIDAZOLAM 5 MG/5 ML (VERSED) VIAL ONE (11:04)
[2020-10-26] MEDS ORDERED: NITRO DRIP 25000 MCG/D5W 250 ML IV ONE (11:44)
[2020-10-26] MEDS ORDERED: HEParin 1000 UNIT/ML (10ML VIAL) FOR BOLUS ONE (11:44)
[2020-10-26] MEDS ORDERED: EPTIFIBATIDE BOLUS 20 ML IV ONE (11:45)
--- NOTE | 2020-10-26 11:52 | NUR ---
THIS RN CALLED PT'S AND PROVIDED UPDATE.
[2020-10-26] MEDS ORDERED: morphine INJ 4 MG/ML 1 ML (VIAL/SYRINGE) ONE (12:13)
[2020-10-26] MEDS ORDERED: CLOPIDOGREL 300 MG (PLAVIX) TABLET PO ONE (12:42)
[2020-10-26] MEDS ORDERED: ASPIRIN 81 MG CHEW (CHILDREN'S ASA) ONE (12:42)
--- NOTE | 2020-10-26 13:03 | Cardiac Procedure Note-CS/ASA ---
Pre-Procedure Note Pre-Op Procedure Note H&P Reviewed The H&P was reviewed, patient examined and no changes noted. Date H&P Reviewed: Oct 26, 2020 Time H&P Reviewed: 11:30 Conscious Sedation Pre-Proced Time 11:30 ASA Score 3 For ASA 3 and 4: Consider anesthesia and medical clearance. Also, for patients with a history of failed moderate sedation consider anesthesia. Airway Lungs Heart ASA score ASA 1: a normal healthy patient ASA 2: a patient with a mild systemic disease (mid diabetes, controlled hypertension, obesity ASA 3: a patient with a severe systemic disease that limits activity (angina, COPD, prior Myocardial infarction) ASA 4: a patient with an incapacitating disease that is a constant threat to life (CHF, renal failure) ASA 5: a moribund patient not expected to survive 24 hrs. (ruptured aneurysm) ASA 6: a declared brain- patient whose organs are being harvested. For emergent operations, add the letter E after the classification Mallampati Classification Grade 2 Sedation Plan Analgesia, Amnesia, Plan communicated to team members, Discussed options with patient/fam, Discussed risks with patient/fam The patient is an appropriate candidate to undergo the planned procedure, sedation, and anesthesia. The patient immediately re-assessed prior to indication. GELY TAYLOR MD FACP FAC CCDS Oct 26, 2020 13:03
--- NOTE | 2020-10-26 13:08 | Progress Note - Cardiology ---
Cardiology SOAP Progress Note Subjective: Continuing twinges of chest pain prior to intervention No shortness of breath or palp or syncope Gen malaise No n/v Objective: I&O/Vital Signs 10/26/20 10/26/20 10/26/20 10/26/20 03:57 06:52 08:16 09:00 Temp 35.9 35.5 Pulse 64 63 58 Resp 21 18 B/P (MAP) 136/71 (92) 141/79 (99) Pulse Ox 97 98 O2 Delivery Room Air Room Air Room Air 10/26/20 00:00 Intake Total 300 ml Output Total 300 ml Balance 0 ml Weight (Pounds): 170 Weight (Calculated Kilograms): 77.316323 Constitutional: AAO x 3, well-developed, well-nourished Respiratory: No accessory muscle use, No respiratory distress; chest expansion is symmetric, chest is bilaterally symmetric, lungs clear to auscultation Cardiovascular: regular rate-rhythm; No JVD; S1 and S2 Gastrointestional: No tender; soft, round, audible bowel sounds Extremities: no lower extremity edema bilateral Neurologic/Psychiatric: grossly intact (moves all extremities) Skin: No rash on exposed areas, No ulcerations on exposed areas Results/Procedures: Labs Laboratory Tests 10/25/20 14:00: White Blood Count 5.4, Red Blood Count 4.51, Hemoglobin 13.5, Hematocrit 41, Mean Corpuscular Volume 90, Mean Corpuscular Hemoglobin 30, Mean Corpuscular Hemoglobin Concent 33, Red Cell Distribution Width 13.4, Platelet Count 254, Mean Platelet Volume 10.9, Immature Granulocyte % (Auto) 0, Neutrophils (%) (Auto) 49, Lymphocytes (%) (Auto) 33, Monocytes (%) (Auto) 6, Eosinophils (%) (Auto) 11H, Basophils (%) (Auto) 1, Neutrophils # (Auto) 2.7, Lymphocytes # (Auto) 1.8, Monocytes # (Auto) 0.3, Eosinophils # (Auto) 0.6H, Basophils # (Auto) 0.0, Immature Granulocyte # (Auto) 0.0, Prothrombin Time 13.0, INR Comment 0.9, Activated Partial Thromboplast Time 37H, Sodium Level 140, Potassium Level 3.7, Chloride Level 104, Carbon Dioxide Level 30, Anion Gap 6, Blood Urea Nitrogen 14, Creatinine 0.88, Estimat Glomerular Filtration Rate > 60, BUN/Creatinine Ratio 16, Glucose Level 91, Calcium Level 9.7, Corrected Calcium , Magnesium Level 2.1, Total Bilirubin 0.7, Aspartate Amino Transf (AST/SGOT) 34, Alanine Aminotransferase (ALT/SGPT) 71H, Alkaline Phosphatase 118 , Myoglobin 38.0, Troponin I 0.255H, Total Protein 8.5H, Albumin 4.8H, Thyroid Stimulating Hormone (TSH) 35.46H, Free Thyroxine 1.07 10/25/20 20:50: Troponin I 0.339*H 10/26/20 04:27: White Blood Count 5.8, Red Blood Count 4.39, Hemoglobin 13.2, Hematocrit 39, Mean Corpuscular Volume 89, Mean Corpuscular Hemoglobin 30, Mean Corpuscular Hemoglobin Concent 34, Red Cell Distribution Width 13.5, Platelet Count 248, Mean Platelet Volume 11.3, Prothrombin Time 13.5, INR Comment 1.0, Sodium Level 139, Potassium Level 3.7, Chloride Level 107, Carbon Dioxide Level 23, Anion Gap 9, Blood Urea Nitrogen 14, Creatinine 0.79, Estimat Glomerular Filtration Rate > 60, BUN/Creatinine Ratio 18, Glucose Level 100, Calcium Level 9.5, Corrected Calcium 9.3, Magnesium Level 2.0, Total Bilirubin 0.7, Aspartate Amino Transf (AST/SGOT) 37H, Alanine Aminotransferase (ALT/SGPT) 63H, Alkaline Phosphatase 109, Total Protein 7.7, Albumin 4.3, Triglycerides Level 298H, Cholesterol Level 293H, LDL Cholesterol Direct 218H, VLDL Cholesterol 60H, HDL Cholesterol 45 A/P: Assessment: NSTEMI on 10/25/20 CAD. Card cath on 10/26/20: 99% mid LAD stented with Xience Mackenzie 2.5x28 stent, and 99% ostial D2 treated with balloon angioplasty, both with good results. Mild CAD in other cors. LVEDP 18 mmHg, LVEF 65% Hypothyroidism - TSH is 35.46 on lab of 10-25-2020 HTN HLD Family h/o father having a CVA H/o hysterectomy Plan: * DAPT * D/c Lovenox * Continue bb and statin * Repeat labs in GELY Rose MD FACP FAC CCDS Oct 26, 2020 13:08
--- NOTE | 2020-10-26 14:06 | NUR ---
THIS RN HAD LLOYD FROM [employer] TEAM LEADER CHECK PT'S GROIN SITE DUE TO CONCERNS OF HEMATOMA. LLOYD TO HOLD PRESSURE AT THIS TIME.
[2020-10-26] MEDS ORDERED: fentaNYL INJECTION 100 MCG/2 ML AMP IVP ONE (14:15)
--- NOTE | 2020-10-26 14:27 | NUR ---
PRESSURE RELIEVED FROM RT GROIN SITE. GROIN SOFT TO PALPATION. 10# SANDBAG APPLIED.
--- NOTE | 2020-10-26 14:32 | NUR ---
THIS RN CALLED PT'S AND PROVIDED POST-CATH UPDATE.
--- NOTE | 2020-10-26 15:45 | CARDIAC CATHETERIZATION ---
DATE OF SERVICE: 10/25/2020 CARDIAC CATHETERIZATION AND CORONARY INTERVENTION REPORT INDICATIONS FOR PROCEDURE: The patient is a 50-year-old lady, who was hospitalized with acute non-ST elevation myocardial infarction and unstable angina. Informed consent was obtained for cardiac catheterization, possible ad hoc coronary intervention. She provided informed consent. DESCRIPTION OF PROCEDURE: She was brought to the cardiac catheterization laboratory in a fasting state. Right groin was prepared and draped in the usual sterile fashion. Lidocaine 1% was used for local anesthesia. Modified Seldinger technique was used to advance a 5-Botswanan sheath in the right femoral artery. We used a 5-Botswanan JL4 catheter for left coronary angiography and a 5-Botswanan JR4 catheter was used for right coronary angiography. We used a 5-Botswanan pigtail catheter for left heart catheterization and left ventricular angiography. PERCUTANEOUS INTERVENTION TO THE LEFT ANTERIOR DESCENDING ARTERY AND TO THE FIRST DIAGONAL BRANCH OF THE LEFT ANTERIOR DESCENDING ARTERY: Following completion of the diagnostic procedure, we carried out percutaneous intervention to the left anterior descending and to the first diagonal branch of the left anterior descending that were exhibiting 99% stenosis. This was a bifurcation stenosis. Distal flow was EVELYN 2. We exchanged the sheath over a wire for a 6-Botswanan sheath. We gave 5000 units of intravenous heparin and a double bolus of Integrilin. We used a 6-Botswanan JL4 guide catheter. We advanced a BMW wire across the 99% stenosis in the left anterior descending and the tip was placed in the distal vessel. We advanced a ChoICE floppy wire across the 99% stenosis in the ostial part of the second diagonal and the tip was placed in the distal vessel. We carried out balloon angioplasty of individual lesions with a 2.0 x 30 mm balloon first. We then carried out kissing balloon angioplasty of the lesions with a 2.0 x 30 mm balloon. The balloons were then removed and we stented the left anterior descending with Xience Mackenzie 2.5 x 28 mm stent that was deployed at 14 atmospheres. Subsequent angiography revealed 0% residual stenosis at the previous site of 99% stenosis and then the flow throughout the vessel was EVELYN 3. We retained the wire in the second diagonal branch. We used this retained wire to now advance the left anterior descending artery wire into the second diagonal branch through the stent strut. The original wire was then removed and we carried out the balloon angioplasty with a 2.0 x 20 mm balloon that was expanded to 7 atmospheres. This resulted in further improvement of the ostial stenosis of the second diagonal (from original 99% to less than 30% residual) and the flow in the vessel was normal (EVELYN 3). Angioplasty equipment was removed. Angiography of the right femoral artery was carried out through the sheath. Mynx was used to achieve hemostasis. She tolerated the procedure well. HEMODYNAMICS: Left ventricular end-diastolic pressure at the baseline was 18 mmHg. There was no significant pressure gradient on pullback across the aortic valve. Ascending aortic pressure was 128/78 with a mean of 72 mmHg. CORONARY ANGIOGRAPHY: Left main coronary artery is free of significant disease. The left anterior descending artery had 99% stenosis in its mid portion at the origin of the second diagonal. The second diagonal also had 99% ostial stenosis. Distal flow in the left anterior descending and the second diagonal was EVELYN 2. These lesions were intervened on. The mid left anterior descending artery was stented with Xience Mackenzie 2.5 x 28 mm stent and balloon angioplasty was carried out to the second diagonal. The end result is that there was no significant residual stenosis of the left anterior descending and there was less than 30% stenosis in the ostial portion of the second diagonal and flow throughout all vessels is now normal (EVELYN 3). The right coronary artery is dominant and has mild plaque. LEFT VENTRICULAR ANGIOGRAPHY: Left ventricular angiography was carried out in the right anterior oblique projection. Global left ventricular systolic function is normal. Left ventricular ejection fraction is approximately 65%. CONCLUSIONS: 1. Coronary artery disease primarily consisting of 99% mid vessel stenosis of the left anterior descending and 99% ostial stenosis of the second diagonal. The left anterior descending artery was stented with Xience Mackenzie 2.5 x 28 mm stent and balloon angioplasty was carried out to the second diagonal. There was no significant residual stenosis in the left anterior descending and less than 30% stenosis of the ostial and proximal portion of the second diagonal. The rest of the coronary vessels have mild plaque. 2. Normal global left ventricular systolic function with ejection fraction of 65%. 3. Mild elevation of left ventricular end-diastolic pressure. DISCUSSION AND RECOMMENDATIONS: Dual antiplatelet therapy has been initiated. Beta blockers and statins are being continued. She remains hospitalized for observation after today's procedure. Job ID: [id number] DocumentID: [id number] Dictated Date: 10/26/2020 13:01:07 Metalworker Date: 10/26/2020 15:45:11 Dictated By: GELY TAYLOR MD, MA, FACP, FACC,
[2020-10-26] MEDS ORDERED: PATIENT MAY USE OWN MEDS, ALL PO SCH (16:30)
[2020-10-27 00:05] VITALS: BP 131/74
[2020-10-27 03:53] VITALS: BP 158/81
[2020-10-27 04:17] LABS: HEMOGLOBIN 12.2 g/dL (11.5-16.0); WHITE BLOOD COUNT 8.3 10^3/uL (4.3-11.0)
[2020-10-27 04:33] LABS: CHLORIDE 104 MMOL/L (98-107); POTASSIUM 3.7 MMOL/L (3.6-5.0); SODIUM 138 MMOL/L (135-145)
[2020-10-27 04:34] LABS: CALCIUM 8.9 MG/DL (8.5-10.1)
[2020-10-27 04:35] LABS: GLUCOSE 107 MG/DL (70-105)
[2020-10-27 04:36] LABS: CARBON DIOXIDE 25 MMOL/L (21-32)
[2020-10-27 04:38] LABS: CREATININE SERUM 0.86 MG/DL (0.60-1.30); GFR ESTIMATED > 60
[2020-10-27 04:39] LABS: BUN/CREATININE RATIO 14
[2020-10-27 07:30] VITALS: BP 155/87
[2020-10-27] MEDS ORDERED: METO50TA7 PO (08:21)
[2020-10-27] MEDS ORDERED: ASPI-999 PO (08:21)
[2020-10-27] MEDS ORDERED: CLOP75TA28 PO (08:21)
[2020-10-27] MEDS: ASPIRIN 81 MG CHEW (CHILDREN'S ASA) PO SCH (08:40)
[2020-10-27] MEDS: PANTOPRAZOLE 40 MG (PROTONIX) TAB PO SCH (08:40)
[2020-10-27] MEDS: meTOproloL SUCCINATE 50 MG (TOPROL XL) TAB PO SCH (08:40)
[2020-10-27] MEDS ORDERED: CLOPIDOGREL 75 MG (PLAVIX) TABLET PO SCH (09:00)
--- NOTE | 2020-10-27 10:47 | Progress Note - Cardiology ---
Cardiology SOAP Progress Note Subjective: Sitting up on the side of the bed Tele translation services utilized No c/o CP or SOB C/O right groin discomfort with palpation Objective: I&O/Vital Signs 10/27/20 10/27/20 10/27/20 10/27/20 00:05 01:00 03:53 07:30 Temp 35.6 35.7 36.2 Pulse 67 72 77 81 Resp 12 14 16 B/P (MAP) 131/74 (93) 158/81 (106) 155/87 (109) Pulse Ox 97 95 94 10/27/20 08:47 O2 Delivery Room Air 10/27/20 00:00 Intake Total 1125 ml Output Total 900 ml Balance 225 ml Weight (Pounds): 170 Weight (Calculated Kilograms): 77.495347 Side: right Groin site without hematoma: Yes Condition: DP/PT pulses palpable, extremity w/d/p Bruising: mild bruising Constitutional: AAO x 3, well-developed, well-nourished Respiratory: No accessory muscle use, No respiratory distress; chest expansion is symmetric, chest is bilaterally symmetric, lungs clear to auscultation Cardiovascular: regular rate-rhythm; No JVD; S1 and S2 Gastrointestional: No tender; soft, round, audible bowel sounds Extremities: no lower extremity edema bilateral Neurologic/Psychiatric: grossly intact (moves all extremities) Skin: No rash on exposed areas, No ulcerations on exposed areas Results/Procedures: Labs Laboratory Tests 10/27/20 04:05: White Blood Count 8.3, Red Blood Count 4.06, Hemoglobin 12.2, Hematocrit 37, Mean Corpuscular Volume 90, Mean Corpuscular Hemoglobin 30, Mean Corpuscular Hemoglobin Concent 33, Red Cell Distribution Width 13.5, Platelet Count 232, Me an Platelet Volume 11.0, Sodium Level 138, Potassium Level 3.7, Chloride Level 104, Carbon Dioxide Level 25, Anion Gap 9, Blood Urea Nitrogen 12, Creatinine 0.86, Estimat Glomerular Filtration Rate > 60, BUN/Creatinine Ratio 14, Glucose Level 107H, Calcium Level 8.9 Laboratory Tests 10/25/20 14:00 10/26/20 04:27 10/27/20 04:05 A/P: Assessment: NSTEMI on 10/25/20 CAD. Card cath on 10/26/20: 99% mid LAD stented with Xience Mackenzie 2.5x28 stent, and 99% ostial D2 treated with balloon angioplasty, both with good results. Mild CAD in other cors. LVEDP 18 mmHg, LVEF 65% Hypothyroidism - TSH is 35.46 on lab of 10-25-2020 HTN HLD Family h/o father having a CVA H/o hysterectomy Plan: * DAPT * Continue bb and statin * Via tele translation services discussed importance of medication/follow up compliance * Likely discharge home soon GEORGI LIPSCOMB Oct 27, 2020 10:47
--- NOTE | 2020-10-27 10:59 | NUR ---
REPORT GIVEN TO BERONICA LI.
[2020-10-27 11:22] VITALS: BP 154/78
--- NOTE | 2020-10-27 11:22 | Discharge Summary ---
Discharge Summary Hospital Course Problems/Dx: (1) NSTEMI (non-ST elevated myocardial infarction) Status: Acute Hospital Course Date of Admission: Oct 25, 2020 at 15:00 Admission Diagnosis : Family Physician/Provider: Center/k,[facility] Date of Discharge: 10/27/20 Discharge Diagnosis: [ ] Hospital Course: [ ] Labs and Pending Lab Test: Laboratory Tests 10/27/20 04:05: White Blood Count 8.3, Red Blood Count 4.06, Hemoglobin 12.2, Hematocrit 37, Mean Corpuscular Volume 90, Mean Corpuscular Hemoglobin 30, Mean Corpuscular Hemoglobin Concent 33, Red Cell Distribution Width 13.5, Platelet Count 232, Mean Platelet Volume 11.0, Sodium Level 138, Potassium Level 3.7, Chloride Level 104, Carbon Dioxide Level 25, Anion Gap 9, Blood Urea Nitrogen 12, Creatinine 0.86, Estimat Glomerular Filtration Rate > 60, BUN/Creatinine Ratio 14, Glucose Level 107H, Calcium Level 8.9 Home Meds Active Aspirin 81 Mg Tab.chew 81 Mg PO DAILY Metoprolol Succinate 50 Mg Tab.er.24h 50 Mg PO DAILY Clopidogrel (Clopidogrel Bisulfate) 75 Mg Tablet 75 Mg PO DAILY Dok (Docusate Sodium) 100 Mg Capsule 100 Mg PO BID Percocet 5-325 mg Tablet (Oxycodone HCl/Acetaminophen) 1 Each Tablet 1 Tab PO Q4H Ibuprofen 800 Mg Tablet 800 Mg PO Q8H Reported Atorvastatin Calcium 80 Mg Tablet 80 Mg PO DAILY Levothyroxine Sodium 88 Mcg Tablet 88 Mcg PO DAILY Levothyroxine Sodium 100 Mcg Tablet 100 Mcg PO DAILY Discharge Physical Examination Vital Signs Vital Signs Date Time Temp Pulse Resp B/P (MAP) Pulse Ox O2 Delivery O2 Flow Rate FiO2 10/27/20 08:47 Room Air 10/27/20 07:30 36.2 81 16 155/87 (109 94 Allergies: Coded Allergies: Penicillins (Verified Allergy, Unknown, Rash, 12/09/19) lisinopril (Verified Allergy, Unknown, MADE TONGUE NUMB FEELING, 12/09/19) Discharge Summary Date of Admission Oct 25, 2020 at 15:00 Date of Discharge Discharge Date: Oct 27, 2020 Admission Diagnosis Assessment: Chest pain Elevated troponin DM Neuropathy Plan: Cath tomorrow Monitor BP and sugar Discharge Diagnosis Assessment: Chest pain Elevated troponin DM Neuropathy Plan: Cath tomorrow Monitor BP and sugar 10/26/20: Cath today Monitor sugar HGA1C (1) NSTEMI (non-ST elevated myocardial infarction) Status: Acute Clinical Quality Measures DVT/VTE Risk/Contraindication: Risk Factor Score Per Nursin RFS Level Per Nursing on Admit: 4+=Very High ESTRADA HAWK DO Oct 27, 2020 11:22
== END 2020-10-27 13:40 | disposition home or self-care (01) | DRG 247 ==
LOC: EDUNIT# 12:40 → ER 12:44 → CSD 15:00 → EDLOC 15:00 → CSD 10-26 07:20
PROVIDERS: ADMIT Internal Medicine; ATTEND Internal Medicine
PROC: 027034Z Dilation of Coronary Artery, One Artery with Drug-eluting Intraluminal Device, Percutaneous Approach (ICD-10-PCS; principal; 2020-10-25)
PROC: 02703ZZ Dilation of Coronary Artery, One Artery, Percutaneous Approach (ICD-10-PCS; 2020-10-25)
PROC: 4A023N7 Measurement of Cardiac Sampling and Pressure, Left Heart, Percutaneous Approach (ICD-10-PCS; 2020-10-25)
PROC: B2111ZZ Fluoroscopy of Multiple Coronary Arteries using Low Osmolar Contrast (ICD-10-PCS; 2020-10-25)
PROC: B2151ZZ Fluoroscopy of Left Heart using Low Osmolar Contrast (ICD-10-PCS; 2020-10-25)
DX: I21.4 Non-ST elevation (NSTEMI) myocardial infarction (principal); I25.110 Atherosclerotic heart disease of native coronary artery with unstable angina pectoris; I10 Essential (primary) hypertension; E78.5 Hyperlipidemia, unspecified; E03.9 Hypothyroidism, unspecified; E11.40 Type 2 diabetes mellitus with diabetic neuropathy, unspecified; F41.9 Anxiety disorder, unspecified; Z79.1 Long term (current) use of non-steroidal anti-inflammatories (NSAID); Z79.891 Long term (current) use of opiate analgesic; Z79.899 Other long term (current) drug therapy; Z82.49 Family history of ischemic heart disease and other diseases of the circulatory system; Z82.3 Family history of stroke; Z83.3 Family history of diabetes mellitus; Z88.0 Allergy status to penicillin; Z88.8 Allergy status to other drugs, medicaments and biological substances
CPT/HCPCS: 36415; 71045; 80048; 80053; 80061; 83036; 83735; 83874; 84439; 84443; 84484; 85025; 85027; 85610; 85730; 93005; 93041; 93458

== ENCOUNTER 2021-02-18 15:33 | Emergency (ER) | payer BC ==
[~2021-02-18] VITALS: Ht 157 cm; Wt 65.0 kg
[~2021-02-18 15:33] MED LIST changes: +ASPI-999 PO; +CLOP75TA28 PO; +METO50TA7 PO
--- NOTE | 2021-02-18 16:19 | ED Chest Pain ---
General Chief Complaint: Chest Pain Stated Complaint: CHEST PAIN Nursing Triage Note: passed out in shower and hit chest and rt knee last sat. Nursing Sepsis Screen: No Definite Risk Source: patient Exam Limitations: no limitations History of Present Illness Date Seen by Provider: Feb 18, 2021 Time Seen by Provider: 15:55 Initial Comments Patient is a 50-year-old female who presents to the emergency department today with a chief complaint of right upper chest wall pain after a syncopal event 1 week ago. Patient states that she was in the shower she was feeling good and the next thing she knew she was waking up on the floor. Patient states that she developed a very large bruise to her right upper chest and she also fell on her right knee. Patient states it hurts to take a deep breath. She denies coughing. She does feel a little short of breath. 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 She denies any additional chest pain. No nausea no sweating. Patient was most recently in the hospital in September 2020 with an NSTEMI. Patient received 2 stents for rather large blockages and coronary arteries. She is chronically anticoagulated on Plavix. She also takes baby aspirin daily. No recent illnesses such as fevers, chills or congestion. No other GI or complaints. All other review of systems reviewed and negative except as stated above. Timing/Duration: 1 week Severity/Quality: severe, aching Location: central Radiation: no radiation Activities at Onset: none Prior CP/Workup: cardiac cath Allergies and Home Medications Allergies Coded Allergies: Penicillins (Verified Allergy, Unknown, Rash, 12/09/19) lisinopril (Verified Allergy, Unknown, MADE TONGUE NUMB FEELING, 12/09/19) Home Medications Aspirin 81 Mg Tab.chew, 81 MG PO DAILY Prescribed by: GEORGI LIPSCOMB on 10/27/20820 Atorvastatin Calcium 80 Mg Tablet, 80 MG PO DAILY, (Reported) Clopidogrel Bisulfate 75 Mg Tablet, 75 MG PO DAILY Prescribed by: GEORGI LIPSCOMB on 10/27/20820 Docusate Sodium 100 Mg Capsule, 100 MG PO BID Prescribed by: JACKI SOUSA on 12/16/19 08 Levothyroxine Sodium 100 Mcg Tablet, 100 MCG PO DAILY, (Reported) Levothyroxine Sodium 88 Mcg Tablet, 88 MCG PO DAILY, (Reported) Metoprolol Succinate 50 Mg Tab.er.24h, 50 MG PO DAILY Prescribed by: GEORGI LIPSCOMB on 10/27/20 0821 Oxycodone HCl/Acetaminophen 1 Each Tablet, 1 TAB PO Q4H Prescribed by: JACKI SOUSA on 12/16/19 0809 Patient Home Medication List Home Medication List Reviewed: Yes Review of Systems Review of Systems Constitutional: see HPI Respiratory: SOA With Exertion (secondary to taking deep breaths - hurts in her bruised chest), SOA at Rest Cardiovascular: Chest Pain Gastrointestinal: No Symptoms Reported Genitourinary: No Symptoms Reported Musculoskeletal: joint pain, other (musculoskeletal chest wall pain) Skin: no symptoms reported Past Rhuiwjo-Nvzkpk-Qhahhp Hx Patient Social History Alcohol Use: Denies Use Smoking Status: Never a Smoker Type Used: Cigarettes 2nd Hand Smoke Exposure: No Recent Infectious Disease Expo: No Recent Hopitalizations: No Immunizations Up To Date Tetanus Booster (TDap): Less than 5yrs Date of Influenza Vaccine: Jul 29, 2019 Seasonal Allergies Seasonal Allergies: No Past Medical History Surgeries: Yes (thumb sx) Section Respiratory: No Cardiac: Yes Hypertension Neurological: No Neuropathy Reproductive Disorders: No Female Reproductive Disorders: Denies Sexually Transmitted Disease: No HIV/AIDS: No Genitourinary: No Gastrointestinal: No Musculoskeletal: No Endocrine: Yes (gestational diabetes) Hypothyroidsim, Diabetes, Non-Insulin dep HEENT: No Cancer: No Psychosocial: Yes Anxiety Integumentary: No Blood Disorders: No Family Medical History Diabetes mellitus 19 MOTHER Hypertension 19 MOTHER Physical Exam Vital Signs Vital Signs - First Documented 02/18/21 15:41 Temp 36.8 Pulse 60 Resp 20 B/P (MAP) 164/84 (110) Pulse Ox 98 O2 Delivery Room Air Capillary Refill : Less Than 3 Seconds Height, Weight, BMI Height: 5'1.00" Weight: 170lbs. oz. 77.430949lo; 26.00 BMI Method:Stated General Appearance: No Apparent Distress, WD/WN Neck: Normal Inspection Respiratory: Lungs Clear, No Accessory Muscle Use, No Respiratory Distress, Decreased Breath Sounds (secondary to effort - hurts to take a deep breath), Other (patietn has significant bruising over the chest wall/ top of right breast) Cardiovascular: Regular Rate, Rhythm Gastrointestinal: Normal Bowel Sounds, Non Tender, Soft Extremity: Normal Inspection, Other (mild ecchymoses over the patella right leg) Neurologic/Psychiatric: Alert, Oriented x3, No Motor/Sensory Deficits, Normal Mood/Affect Skin: Normal Color, Warm/Dry, Ecchymosis Progress/Results/Core Measures Results/Orders Lab Results Laboratory Tests Test 02/18/21 16:14 Range/Units White Blood Count 5.7 4.3-11.0 10^3/uL Red Blood Count 4.34 3.80-5.11 10^6/uL Hemoglobin 12.8 11.5-16.0 g/dL Hematocrit 39 35-52 % Mean Corpuscular Volume 89 80-99 fL Mean Corpuscular Hemoglobin 30 25-34 pg Mean Corpuscular Hemoglobin Concent 33 32-36 g/dL Red Cell Distribution Width 12.5 10.0-14.5 % Platelet Count 262 130-400 10^3/uL Mean Platelet Volume 10.9 9.0-12.2 fL Immature Granulocyte % (Auto) 0 % Neutrophils (%) (Auto) 56 42-75 % Lymphocytes (%) (Auto) 23 12-44 % Monocytes (%) (Auto) 8 0-12 % Eosinophils (%) (Auto) 12 H 0-10 % Basophils (%) (Auto) 1 0-10 % Neutrophils # (Auto) 3.2 1.8-7.8 10^3/uL Lymphocytes # (Auto) 1.3 1.0-4.0 10^3/uL Monocytes # (Auto) 0.5 0.0-1.0 10^3/uL Eosinophils # (Auto) 0.7 H 0.0-0.3 10^3/uL Basophils # (Auto) 0.0 0.0-0.1 10^3/uL Immature Granulocyte # (Auto) 0.0 0.0-0.1 10^3/uL Sodium Level 138 135-145 MMOL/L Potassium Level 3.8 3.6-5.0 MMOL/L Chloride Level 105 98-107 MMOL/L Carbon Dioxide Level 23 21-32 MMOL/L Anion Gap 10 5-14 MMOL/L Blood Urea Nitrogen 19 H 7-18 MG/DL Creatinine 0.96 0.60-1.30 MG/DL Estimat Glomerular Filtration Rate > 60 BUN/Creatinine Ratio 20 Glucose Level 98 70-105 MG/DL Calcium Level 8.9 8.5-10.1 MG/DL Total Creatine Kinase 36 29-168 U/L Creatine Kinase MB 0.4 <6.6 NG/ML Troponin I < 0.028 <0.028 NG/ML My Orders Orders - QUEENIE ROBERTS MD Ekg Tracing (02/18/21 16:08) Troponin I (02/18/21 16:08) Creatine Kinase (02/18/21 16:08) Creatine Kinase Mb (02/18/21 16:08) Basic Metabolic Panel (02/18/21 16:08) Cbc With Automated Diff (02/18/21 16:08) Chest 1 View, Ap/Pa Only (02/18/21 16:08) Vital Signs/I&O 02/18/21 02/18/21 15:41 17:20 Temp 36.8 36.8 Pulse 60 60 Resp 20 20 B/P (MAP) 164/84 (110) 148/86 (110) Pulse Ox 98 98 O2 Delivery Room Air Room Air Blood Pressure Mean: 110 Progress Progress Note : Time: 17:10 Progress Note Patient seen and evaluated, 50-year-old female status post syncopal episode 1 week ago and significant bruising to the right upper chest wall. Evaluation today includes a physical exam, CBC, EKG, basic metabolic panel, cardiac enzyme panel and chest x-ray. Patient's work-up is unremarkable. She has negative cardiac enzymes. She has a normal-appearing EKG without ectopy or ST segment elevations or depressions. Patient is comfortable with going home with Tylenol. I am going to set her up for a Holter monitor as she had this unexplained syn copal episode a week ago for months after receiving 2 stents to large blockages in her coronary arteries. Patient will follow up with Dr. Troncoso. She has a scheduled appointment in March. Findings and plan of care were discussed with the . He interpreted to his . All questions are sought and answered. Patient is stable for discharge. Initial ECG Impression Date: Feb 18, 2021 Initial ECG Impression Time: 15:55 Initial ECG Rate: 58 Initial ECG Rhythm: Normal Sinus Initial ECG Intervals: Normal Initial ECG Impression: Normal, 3rd Degree AV Block Diagnostic Imaging Diagonstic Imaging: Xray Plain Films/CT/US/NM/MRI: chest Comments [facility]. [place], [place] NAME: EDWINA JERNIGAN [facility] REC#: [id number] PT STATUS: REG ER : 1970 PHYSICIAN: QUEENIE ROBERTS MD ADMIT DATE: 02/18/21/ER Signed Date of Exam:02/18/21 CHEST 1 VIEW, AP/PA ONLY Indication: Syncope Portable chest 4:20 PM Heart size and pulmonary vascularity are normal. Lungs are clear. There are no effusions or pneumothoraces. IMPRESSION: Negative chest Dictated by: Dictated on workstation # [id number] Dict: 02/18/21 1633 Trans: 02/18/21 1633 TC [id number] Interpreted by: ЕЛЕНА MURCIA MD Electronically signed by: ЕЛЕНА MURCIA MD 02/18/21 1633 Departure Impression Primary Impression: Chest wall pain Disposition: HOME, SELF-CARE Condition: Stable Departure-Patient Inst. Decision time for Depature: 17:11 Referrals: [facility] [place] ([place]/Family) Primary Care Physician GELY CUTLER MD FACP FAC CCDS Patient Instructions: CHEST CONTUSION Add. Discharge Instructions: Use leqg-tyi-[id number] Tylenol 2 pills every 4-6 hours as needed for pain. Try and take deep breaths to help keep your lungs opened up. I have given you a work note to avoid strenuous activity with your right arm for the next week. I have also given you an order form for a Holter monitor or heart monitor to wear for 2 days. You will then need to follow-up with Dr. Cutler. Come back to the emergency department for any other passing out spells, worsenin g chest pain, shortness of breath nausea or any other emergent concerning symptoms. QUEENIE ROBERTS MD Feb 18, 2021 16:19
[2021-02-18 16:20] LABS: BASOPHILS % (AUTO) 1 % (0-10); EOSINOPHILS # (AUTO) 0.7 10^3/uL (0.0-0.3); EOSINOPHILS % (AUTO) 12 % (0-10); HEMATOCRIT 39 % (35-52); HEMOGLOBIN 12.8 g/dL (11.5-16.0); LYMPHOCYTES # (AUTO) 1.3 10^3/uL (1.0-4.0); LYMPHOCYTES % (AUTO) 23 % (12-44); MEAN CORPUSCULAR HEMOGLOBIN 30 pg (25-34); MEAN CORPUSCULAR HGB CONC 33 g/dL (32-36); MEAN CORPUSCULAR VOLUME 89 fL (80-99); MEAN PLATELET VOLUME 10.9 fL (9.0-12.2); MONOCYTES # (AUTO) 0.5 10^3/uL (0.0-1.0); MONOCYTES % (AUTO) 8 % (0-12); NEUTROPHILS # (AUTO) 3.2 10^3/uL (1.8-7.8); NEUTROPHILS % (AUTO) 56 % (42-75); PLATELET COUNT 262 10^3/uL (130-400); WHITE BLOOD COUNT 5.7 10^3/uL (4.3-11.0)
--- NOTE | 2021-02-18 16:34 | Diagnostic Imaging Report ---
Indication: Syncope Portable chest 4:20 PM Heart size and pulmonary vascularity are normal. Lungs are clear. There are no effusions or pneumothoraces. IMPRESSION: Negative chest Dictated by: Dictated on workstation # [id number]
[2021-02-18 16:48] LABS: BUN/CREATININE RATIO 20; CALCIUM 8.9 MG/DL (8.5-10.1); CARBON DIOXIDE 23 MMOL/L (21-32); CHLORIDE 105 MMOL/L (98-107); CREATINE KINASE 36 U/L (29-168); CREATININE SERUM 0.96 MG/DL (0.60-1.30); GFR ESTIMATED > 60; GLUCOSE 98 MG/DL (70-105); POTASSIUM 3.8 MMOL/L (3.6-5.0); SODIUM 138 MMOL/L (135-145)
[2021-02-18 16:55] LABS: CREATINE KINASE MB 0.4 NG/ML (<6.6)
[2021-02-18 17:20] VITALS: BP 148/86
== END 2021-02-18 17:20 | disposition home or self-care (01) ==
LOC: EDUNIT# 15:33 → ER 15:37
DX: S80.01XA Contusion of right knee, initial encounter (principal); S20.20XA Contusion of thorax, unspecified, initial encounter; R07.89 Other chest pain; I10 Essential (primary) hypertension; E03.9 Hypothyroidism, unspecified; E11.9 Type 2 diabetes mellitus without complications; Z88.0 Allergy status to penicillin; Z88.8 Allergy status to other drugs, medicaments and biological substances; Z79.890 Hormone replacement therapy; Z79.82 Long term (current) use of aspirin; X58.XXXA Exposure to other specified factors, initial encounter
CPT/HCPCS: 36415; 71045; 80048; 82550; 82553; 84484; 85025; 93005

== ENCOUNTER 2021-04-12 08:00 | Day surgery (SDC) | payer BC ==
[2021-04-12 07:19] VITALS: BP 128/84
--- NOTE | 2021-04-12 14:14 | OPERATIVE REPORT ---
DATE OF SERVICE: 04/12/2021 PREOPERATIVE DIAGNOSIS: Syncope. POSTOPERATIVE DIAGNOSIS: Syncope. PROCEDURE: Implantable loop recorder implantation. INDICATIONS: The patient is a 50-year-old lady, who has a history of coronary artery disease for which she has undergone coronary intervention. She has been experiencing infrequent syncope or near syncope. Informed consent was obtained for implantable loop recorder implantation. DESCRIPTION OF PROCEDURE: [facility] The left prepectoral area was prepared and draped in the usual sterile fashion. Lidocaine 1% was used for local anesthesia. The tools provided with the Medtronic Reveal LINQ device were used to make a subcutaneous pocket anterior to the left fourth intercostal space into which the device was placed and the wound edges were closed using Dermabond and Steri-Strips. This is a Medtronic Reveal LINQ device and the serial number is [id number]. Job ID: [id number] DocumentID: [id number] Dictated Date: 04/12/2021 08:56:09 Relish Blender Date: 04/12/2021 14:13:27 Dictated By: GELY TAYLOR MD, MA, FACP, FACC,
== END 2021-04-12 09:30 | disposition home or self-care (01) ==
LOC: CATH 09:30
PROVIDERS: ATTEND Internal Medicine Cardiovascular Disease
DX: R55 Syncope and collapse (principal); M79.89 Other specified soft tissue disorders; I25.10 Atherosclerotic heart disease of native coronary artery without angina pectoris; I25.2 Old myocardial infarction; E03.9 Hypothyroidism, unspecified; I10 Essential (primary) hypertension; I73.9 Peripheral vascular disease, unspecified; E78.2 Mixed hyperlipidemia; Z79.890 Hormone replacement therapy; Z79.82 Long term (current) use of aspirin; Z79.02 Long term (current) use of antithrombotics/antiplatelets; Z79.899 Other long term (current) drug therapy
CPT/HCPCS: 33285; C1764

== ENCOUNTER → 2022-02-24 | Outpatient (CLI) | payer BC ==
[~2022-02-24] MED LIST changes: -DCS100C PO; +DOCU-239 PO
== END ==
LOC: CARD 13:33
PROVIDERS: ATTEND Internal Medicine Cardiovascular Disease
DX: I25.10 Atherosclerotic heart disease of native coronary artery without angina pectoris (principal)
CPT/HCPCS: 93306

== ENCOUNTER → 2022-03-03 | Outpatient (CLI) | payer BC ==
[~2022-03-03] MED LIST changes: +CATHETER FLUSH 10 ML SYR IVP PRN; +REGADENOSON 0.4 MG/5 ML SYR (LEXISCAN) IV ONE
[2022-03-03 09:17] VITALS: BP 164/82
[2022-03-03 09:44] LABS: HEMATOCRIT 40 % (35-52); HEMOGLOBIN 13.3 g/dL (11.5-16.0); MEAN CORPUSCULAR HEMOGLOBIN 30 pg (25-34); MEAN CORPUSCULAR HGB CONC 33 g/dL (32-36); MEAN CORPUSCULAR VOLUME 89 fL (80-99); MEAN PLATELET VOLUME 10.8 fL (9.0-12.2); PLATELET COUNT 240 10^3/uL (130-400); WHITE BLOOD COUNT 5.6 10^3/uL (4.3-11.0)
[2022-03-03 10:11] LABS: ALANINE AMINOTRANSFERASE 33 U/L (0-55); ALBUMIN 4.6 GM/DL (3.2-4.5); ALKALINE PHOSPHATASE 76 U/L (40-136); BILIRUBIN,TOTAL 0.7 MG/DL (0.1-1.0); BUN/CREATININE RATIO 13; CALCIUM 9.4 MG/DL (8.5-10.1); CARBON DIOXIDE 22 MMOL/L (21-32); CHLORIDE 106 MMOL/L (98-107); CHOLESTEROL 160 MG/DL (< 200); CREATININE SERUM 0.93 MG/DL (0.60-1.30); GFR ESTIMATED 74; GLUCOSE 110 MG/DL (70-105); HDL CHOLESTEROL 55 MG/DL (40-60); POTASSIUM 3.8 MMOL/L (3.6-5.0); SODIUM 145 MMOL/L (135-145); TOTAL PROTEIN 7.6 GM/DL (6.4-8.2); TRIGLYCERIDES 106 MG/DL (<150); VLDL CHOLESTEROL 21 MG/DL (5-40)
--- NOTE | 2022-03-07 22:43 | STRESS TEST ---
DATE OF SERVICE: 03/03/2022 RESTING AND POST REGADENOSON TECHNETIUM-99M TETROFOSMIN SPECT CT IMAGING ORDERING PHYSICIAN: Dr. Cutler. PRIMARY PHYSICIAN: [facility]. CLINICAL DIAGNOSIS: Coronary artery disease. Baseline images were carried out after injection of 9.98 mCi of technetium-99m Tetrofosmin. This was followed by 0.4 mg regadenoson and 30.6 mCi of technetium-99m Tetrofosmin for stress imaging. The electrocardiogram showed sinus rhythm at baseline. It did not change significantly with regadenoson infusion. Review of images at rest and following stress does not indicate any distinct perfusion defects consistent with significant myocardial ischemia or infarction. Gated images show normal global left ventricular systolic function with normal regional wall motion. Left ventricular ejection fraction is calculated to be 64%. CONCLUSIONS: 1. No evidence of any significant myocardial ischemia or infarction study. 2. Normal regional wall motion. 3. Normal global left ventricular systolic function with a calculated ejection fraction of 64%. Job ID: [id number] DocumentID: [id number] Dictated Date: 03/07/2022 18:10:43 Pharmacist Apprentice Date: 03/07/2022 22:43:04 Dictated By: GELY CUTLER MD, MA, FACP, FACC,
== END ==
LOC: CARD 08:00
PROVIDERS: ATTEND Internal Medicine Cardiovascular Disease
DX: I25.10 Atherosclerotic heart disease of native coronary artery without angina pectoris (principal); I25.2 Old myocardial infarction; I10 Essential (primary) hypertension; I70.213 Atherosclerosis of native arteries of extremities with intermittent claudication, bilateral legs; E78.2 Mixed hyperlipidemia; R55 Syncope and collapse
CPT/HCPCS: 78452; 80053; 80061; 84443; 85027; 93017; A9502; 36415

== ENCOUNTER 2022-05-31 06:12 | Outpatient (CLI) | payer BC ==
[~2022-05-31] VITALS: Ht 152.4 cm; Wt 74.8 kg
[~2022-05-31 06:12] MED LIST changes: -CATHETER FLUSH 10 ML SYR IVP PRN; -REGADENOSON 0.4 MG/5 ML SYR (LEXISCAN) IV ONE
== END 2022-06-01 13:03 | disposition home or self-care (01) ==
LOC: PREOP 06:12
PROVIDERS: ATTEND Surgery
DX: Z01.818 Encounter for other preprocedural examination (principal)

== ENCOUNTER 2022-06-09 11:30 | Day surgery (SDC) | payer BC ==
[2022-06-09] VITALS (7 sets, daily range): BP systolic 102–123; BP diastolic 58–66
[~2022-06-09] VITALS: Ht 152 cm; Wt 74.8 kg
[2022-06-09] MEDS ORDERED: LACTATED RINGERS 1,000 ML IV STA (11:41)
[2022-06-09] MEDS ORDERED: LACTATED RINGERS 1,000 ML IV ONE (12:16)
[2022-06-09] MEDS ORDERED: MIDAZOLAM 2 MG/2 ML (VERSED) VIAL ONE (12:24)
[2022-06-09] MEDS ORDERED: PROPOFOL INJECTION 50 ML IV ONE (12:24)
--- NOTE | 2022-06-09 12:30 | Progress Note-Pre Operative ---
Pre-Operative Progress Note Date of Available H&P: May 16, 2022 Date H&P Reviewed: Jun 09, 2022 Time H&P Reviewed: 12:28 History & Physical: H&P Reviewed, Patient Examed, No changes noted Pre-Operative Diagnosis: Screening Colon LLOYD GEIGER DO Jun 09, 2022 12:30
--- NOTE | 2022-06-09 13:01 | Progress Note-Post Operative ---
Post-Operative Progess Note Surgeon (s)/Communication Spec (s) Surgeon LLOYD GEIGER DO Communication Spec: LAMBERT Noe Pre-Operative Diagnosis Screening Colon Post-Operative Diagnosis Diverticula int hemorrhoids Procedure & Operative Findings Date of Procedure 06/09/22 Procedure Performed/Findings Colonoscopy PROCEDURE NOTE: After informed consent was obtained, the patient was brought to the endoscopy suite, placed in bed in left lateral decubitus position. She was administered IV sedation by the DRY CHAIN OPERATOR who then monitored her vitals the entire time, heart rate, blood pressure and pulse ox and the scope was inserted, pushed all the way to about 140 cm and pushed into the cecum, took a picture of appendiceal orifice and then able to get into the terminal ileum. Also noted a diverticula in the ascending colon just outside Cecal cap. Slowly withdrew the scope insufflating to look circum- ferentially at the starr starting in the cecum, up the ascending colon to the hepatic flexure, then down the transverse colon to the splenic flexure, into the descending colon and into the sigmoid. Saw a few diverticula on the left side of the colon. Finally into the rectal vault and retroflexed the scope. Took picture of the internal hemorrhoids. The patient tolerated the procedure. She was recovered in endoscopy suite. Recommended for repeat colonoscopy in 10 years. Anesthesia Type IV sedation by DRY CHAIN OPERATOR Estimated Blood Loss Estimated blood loss (mL): none Specimens/Packing Specimens Removed none LLOYD GEIGER DO Jun 09, 2022 13:01
--- NOTE | 2022-06-09 13:02 | Endoscopy Discharge Instruct ---
Endo Procedure/Findings Findings 1.: Diverticulosis 2.: Internal Hemorrhoids Discharge Instructions - Activity: You might feel a little sleepy until tomorrow. This is due to the medicine you received to relax you. Until tomorrow, you should: NOT drive a car, operate machinery or power tools. NOT drink any alcoholic beverages. NOT make any important decisions or sign importortant papers. Do not return to work until tomorrow, unless otherwise instructed. Resume previous activities tomorrow. Diet: Start by taking liquids. If you tolerate liquids, advance to solid food. 1.: Colonscopy in 10 years Notify Physician - If you experience excessive bleeding, unusual abdominal pain, fever, or chest pain, contact your doctor immediately. LLOYD GEIGER DO Jun 09, 2022 13:02
--- NOTE | 2022-06-09 13:12 | Anesthesia-General Post-Op ---
MAC Patient Condition Mental Status/LOC: Same as Preop Cardiovascular: Satisfactory Nausea/Vomiting: Absent Respiratory: Satisfactory Pain: Controlled Complications: Absent Post Op Complications Complications None Follow Up Care/Instructions Patient Instructions None needed. Anesthesiology Discharge Order Discharge Order Patient is doing well, no complaints, stable vital signs, no apparent adverse anesthesia problems. No complications reported per nursing. WILTON GRAHAM CRNA Jun 09, 2022 13:12
== END 2022-06-09 14:00 | disposition home or self-care (01) ==
LOC: ENDO 11:30
PROVIDERS: ATTEND Surgery
DX: Z12.11 Encounter for screening for malignant neoplasm of colon (principal); K57.30 Diverticulosis of large intestine without perforation or abscess without bleeding; K64.8 Other hemorrhoids

== ENCOUNTER 2022-08-15 07:51 | Day surgery (SDC) | payer BC ==
[~2022-08-15] VITALS: Ht 152.4 cm; Wt 75.0 kg
[2022-08-15] VITALS (12 sets, daily range): BP systolic 110–137; BP diastolic 54–77
[2022-08-15] MEDS ORDERED: LIDOCAINE 1% INJ 30 ML (XYLOCAINE) VIAL ONE (08:25)
[2022-08-15] MEDS ORDERED: HEParin (CATH LAB) 2,000 ML IV ONE (08:26)
[2022-08-15] MEDS ORDERED: NS IV 1000 ML 1,000 ML ONE (08:26)
[2022-08-15] MEDS ORDERED: NS IV 1000 ML 1,000 ML IV SCH (08:30)
[2022-08-15 08:47] LABS: HEMATOCRIT 39 % (35-52); HEMOGLOBIN 12.8 g/dL (11.5-16.0); MEAN CORPUSCULAR HEMOGLOBIN 29 pg (25-34); MEAN CORPUSCULAR HGB CONC 33 g/dL (32-36); MEAN CORPUSCULAR VOLUME 87 fL (80-99); MEAN PLATELET VOLUME 11.2 fL (9.0-12.2); PLATELET COUNT 257 10^3/uL (130-400); WHITE BLOOD COUNT 5.8 10^3/uL (4.3-11.0)
[2022-08-15 08:59] LABS: PROTHROMBIN TIME PATIENT 13.3 SEC (12.2-14.7)
[2022-08-15 09:08] LABS: ALBUMIN 4.2 GM/DL (3.2-4.5); BILIRUBIN,TOTAL 0.6 MG/DL (0.1-1.0); CALCIUM 9.4 MG/DL (8.5-10.1); CREATININE SERUM 0.8 MG/DL (0.60-1.30); POTASSIUM 4.3 MMOL/L (3.6-5.0); TOTAL PROTEIN 6.9 GM/DL (6.4-8.2)
[2022-08-15] MEDS ORDERED: ATOR80TA76 PO (09:10)
[2022-08-15] MEDS ORDERED: CLOP75TA28 PO (09:10)
[2022-08-15] MEDS ORDERED: LEVO200C2 PO (09:10)
[2022-08-15] MEDS ORDERED: ASPI-999 PO (09:10)
[2022-08-15] MEDS ORDERED: MTP25TSR PO (09:10)
[2022-08-15] MEDS ORDERED: fentaNYL INJ 100 MCG/2 ML AMP ONE (10:40)
[2022-08-15] MEDS ORDERED: MIDAZOLAM 5 MG/5 ML (VERSED) VIAL ONE (10:41)
--- NOTE | 2022-08-15 11:09 | Cardiac Procedure Note-CS/ASA ---
Pre-Procedure Note Pre-Op Procedure Note Date of Available H&P: Aug 15, 2022 Date H&P Reviewed: Aug 11, 2022 Time H&P Reviewed: 11:09 History & Physical: No changes noted Conscious Sedation Pre-Proced ASA Score 3 For ASA 3 and 4: Consider anesthesia and medical clearance. Also, for patients with a history of failed moderate sedation consider anesthesia. Airway Lungs Heart ASA score ASA 1: a normal healthy patient ASA 2: a patient with a mild systemic disease (mid diabetes, controlled hypertension, obesity ASA 3: a patient with a severe systemic disease that limits activity (angina, COPD, prior Myocardial infarction) ASA 4: a patient with an incapacitating disease that is a constant threat to life (CHF, renal failure) ASA 5: a moribund patient not expected to survive 24 hrs. (ruptured aneurysm) ASA 6: a declared brain- patient whose organs are being harvested. For emergent operations, add the letter E after the classification Mallampati Classification Grade 2 Sedation Plan Analgesia, Amnesia, Plan communicated to team members The patient is an appropriate candidate to undergo the planned procedure, sedation, and anesthesia. The patient immediately re-assessed prior to indication. GELY TAYLOR MD FACP FAC CCDS Aug 15, 2022 11:09
[2022-08-15] MEDS ORDERED: HEParin 1000 UNIT/ML (10ML VIAL) FOR BOLUS ONE (11:27)
[2022-08-15] MEDS ORDERED: EPTIFIBATIDE BOLUS 20 ML IV ONE (11:29)
[2022-08-15] MEDS ORDERED: NITRO DRIP 25000 MCG/D5W 250 ML IV ONE (11:38)
[2022-08-15] MEDS ORDERED: ASPIRIN 81 MG CHEW (CHILDREN'S ASA) ONE (11:42)
[2022-08-15] MEDS ORDERED: CLOPIDOGREL 300 MG (PLAVIX) TABLET PO ONE (11:42)
--- NOTE | 2022-08-15 12:02 | CARDIAC CATHETERIZATION ---
DATE OF SERVICE: 08/15/2022 CARDIAC CATHETERIZATION AND CORONARY INTERVENTION REPORT The patient is a 51-year-old lady, who is known to have coronary artery disease and has had stenting of the left anterior descending and balloon angioplasty of the ostial portion of the second diagonal in 09/2020. She now has recurrent chest discomfort suggestive of recurrent angina. Cardiac catheterization was carried out today after having obtained informed consent for cardiac catheterization and possible ad hoc coronary intervention. DESCRIPTION OF PROCEDURE: She was brought to the cardiac catheterization laboratory in a fasting state. Right groin was prepared and draped in the usual sterile fashion. Lidocaine 1% was used for local anesthesia. Modified Seldinger technique was used to advance a 5-Samoan sheath in right femoral artery, 5-Samoan JL4 catheter was used for left coronary angiography, 5-Samoan JR4 catheter for right coronary angiography, 5-Samoan pigtail catheter was used for left heart catheterization and left ventricular angiography. Subsequently, percutaneous intervention was carried out to the left circumflex artery as is described below. PERCUTANEOUS INTERVENTION TO THE LEFT CIRCUMFLEX: We exchanged the sheath over a wire for a 6-Samoan sheath. We gave 5000 units of intravenous heparin and double bolus of Integrilin during the procedure. We used a 6-Samoan JL4 guide catheter. We advanced a BMW wire across 70% to 80% stenosis in the mid left circumflex artery and the tip was placed in the distal vessel. We stented the lesion with Skypoint 2.5 x 12 mm stent that was deployed at 12 atmospheres. Subsequent angiography revealed 0% residual stenosis. Flow throughout the vessel is normal. She tolerated the procedure well. HEMODYNAMICS: Left ventricular end-diastolic pressure following coronary angiography was 12 mmHg. There was no significant pressure gradient on pullback or across the aortic valve. CORONARY ANGIOGRAPHY: Left main coronary artery is free of significant disease. Left anterior descending artery has a widely patent stent in its mid portion that is known to be Xience Mackenzie 2.5 x 28 mm that was placed in 09/2020. The diagonal branches show mild to moderate disease. The second diagonal has moderate ostial stenosis. This is a very small caliber vessel. The left circumflex artery had 70% to 80% mid vessel stenosis that was successfully stented with Skypoint 2.5 x 12 mm stent that reduced the stenosis to 0% residual. The right coronary artery has diffuse disease with multiple plaques. LEFT VENTRICULAR ANGIOGRAPHY: Left ventricular angiography was carried out in the left anterior oblique projection. Global left ventricular systolic function is normal. No regional wall motion abnormalities seen. Left ventricular ejection fraction approximately 60%. CONCLUSIONS: 1. Coronary artery disease primarily consisting of 70% to 80% mid vessel stenosis. Left circumflex that was successfully stented with Skypoint 2.5 x 12 mm stent with reduction of stenosis to no significant residual. The left anterior descending artery has a widely patent stent in its mid portion that is known to be Xience Mackenzie 2.5 x 28 mm that was placed in 09/2020. The rest of the coronary vessels have diffuse mild to moderate disease. The right coronary artery is dominant. 2. Normal global left ventricular systolic function with ejection fraction of 60%. 3. Normal left ventricular end-diastolic pressure. DISCUSSION AND RECOMMENDATIONS: Risk factor modification has been reviewed. Current regimen, including dual antiplatelet therapy is being continued. She is being kept in the hospital for overnight observation. Job ID: [id number] DocumentID: [id number] Dictated Date: 08/15/2022 11:51:52 Production Assembly Supervisor Date: 08/15/2022 12:01:30 Dictated By: GELY TAYLOR MD, MA, FACP, FACC,
[2022-08-15] MEDS ORDERED: PATIENT MAY USE OWN MEDS, ALL PO SCH (15:15)
[2022-08-15] MEDS: NS IV 1000 ML 1,000 ML IV SCH (15:15)
[2022-08-15] MEDS ORDERED: ACETAMINOPHEN 325 MG TABLET PO PRN (15:15)
[2022-08-15] MEDS ORDERED: ATROPINE INJ 0.4 MG/ML SDV ONE (15:27)
[2022-08-15] MEDS ORDERED: LEVO200T6 PO (15:35)
[2022-08-16] VITALS: BP 112/59
[2022-08-16] MEDS: NS IV 1000 ML 1,000 ML IV SCH (02:11)
[2022-08-16 04:00] VITALS: BP 124/61
[2022-08-16 05:54] LABS: BASOPHILS % (AUTO) 1 % (0-10); EOSINOPHILS # (AUTO) 0.4 10^3/uL (0.0-0.3); EOSINOPHILS % (AUTO) 6 % (0-10); HEMATOCRIT 36 % (35-52); HEMOGLOBIN 11.9 g/dL (11.5-16.0); LYMPHOCYTES # (AUTO) 1.4 10^3/uL (1.0-4.0); LYMPHOCYTES % (AUTO) 22 % (12-44); MEAN CORPUSCULAR HEMOGLOBIN 29 pg (25-34); MEAN CORPUSCULAR HGB CONC 33 g/dL (32-36); MEAN CORPUSCULAR VOLUME 86 fL (80-99); MEAN PLATELET VOLUME 11.2 fL (9.0-12.2); MONOCYTES # (AUTO) 0.4 10^3/uL (0.0-1.0); MONOCYTES % (AUTO) 7 % (0-12); NEUTROPHILS # (AUTO) 4.1 10^3/uL (1.8-7.8); NEUTROPHILS % (AUTO) 64 % (42-75); PLATELET COUNT 245 10^3/uL (130-400); WHITE BLOOD COUNT 6.3 10^3/uL (4.3-11.0)
[2022-08-16 06:14] LABS: CALCIUM 8.9 MG/DL (8.5-10.1); CREATININE SERUM 0.78 MG/DL (0.60-1.30); MAGNESIUM 1.8 MG/DL (1.6-2.4)
[2022-08-16] MEDS ORDERED: LEVOTHYROXINE 100 MCG (LEVOTHROID) TAB PO SCH ×2 (06:30→09:00)
[2022-08-16 07:47] VITALS: BP 133/67
--- NOTE | 2022-08-16 07:59 | Progress Note - Cardiology ---
Cardiology SOAP Progress Note Subjective: Sitting up in recliner at the bedside Spouse at the bedside She denies any c/o CP, SOB, palpitations No c/o groin discomfort No c/o n/v Objective: I&O/Vital Signs 08/16/22 08/16/22 08/16/22 08/16/22 00:00 01:00 04:00 04:00 Pulse 65 64 72 Resp 14 20 B/P (MAP) 112/59 (76) 124/61 (82) Pulse Ox 96 96 O2 Delivery Room Air Room Air Room Air 08/16/22 08/16/22 08/16/22 07:29 07:40 07:47 Temp 36.6 Pulse 65 62 Resp 12 B/P (MAP) 133/67 (89) Pulse Ox 97 O2 Delivery Room Air Room Air Weight (Pounds): 170 Weight (Calculated Kilograms): 77.572493 Side: right Groin site without hematoma: Yes Condition: DP/PT pulses palpable, extremity w/d/p Bruising: mild bruising Constitutional: AAO x 3, well-developed, well-nourished Respiratory: No accessory muscle use, No respiratory distress; chest expansion is symmetric, chest is bilaterally symmetric, lungs clear to auscultation Cardiovascular: regular rate-rhythm; No JVD; S1 and S2 Gastrointestional: No tender; soft, round, audible bowel sounds Extremities: no lower extremity edema bilateral Neurologic/Psychiatric: grossly intact (moves all extremities) Skin: No rash on exposed areas, No ulcerations on exposed areas Results/Procedures: Labs Laboratory Tests 08/16/22 05:20: White Blood Count 6.3, Red Blood Count 4.12, Hemoglobin 11.9, Hematocrit 36, Mean Corpuscular Volume 86, Mean Corpuscular Hemoglobin 29, Mean Corpuscular Hemoglobin Concent 33, Red Cell Distribution Width 13.2, Platelet Count 245, Mean Platelet Volume 11.2, Immature Granulocyte % (Auto) 0, Neutrophils (%) (Auto) 64, Lymphocytes (%) (Auto) 22, Monocytes (%) (Auto) 7, Eosinophils (%) (Auto) 6, Basophils (%) (Auto) 1, Neutrophils # (Auto) 4.1, Lymphocytes # (Auto) 1.4, Monocytes # (Auto) 0.4, Eosinophils # (Auto) 0.4H, Basophils # (Auto) 0.0, Immature Granulocyte # (Auto) 0.0, Sodium Level 139, Potassium Level 4.0, Chloride Level 107, Carbon Dioxide Level 23, Anion Gap 9, Blood Urea Nitrogen 11, Creatinine 0.78, Estimat Glomerular Filtration Rate 92, BUN/Creatinine Ratio 14, Glucose Level 107H, Calcium Level 8.9, Magnesium Level 1.8 Microbiology 08/15/22 MRSA Screen - Final, Complete MRSA not isolated Procedures S/P cardiac cath with successful coronary intervention A/P: Assessment: CAD. - NSTEMI on 10/25/20 - Card cath on 10/26/20: 99% mid LAD stented with Xience Mackenzie 2.5x28 stent, and 99% ostial D2 treated with balloon angioplasty, both with good results. Mild CAD in other cors. LVEDP 18 mmHg, LVEF 65% - MPI 03-03-22 No evidence of any significant myocardial ischemia or infarction study. Normal regional wall motion. Normal global left ventricular systolic function with a calculated ejection fraction of 64%. - Echocardiogram of 02-24-22 showed LVEF 60-65% - Cardiac cath of 08-15-22: Coronary artery disease primarily consisting of 70% to 80% mid vessel stenosis. Left circumflex that was successfully stented with Skypoint 2.5 x 12 mm stent with reduction of stenosis to no significant residual. The left anterior descending artery has a widely patent stent in its mid portion that is known to be Xience Mackenzie 2.5 x 28 mm that was placed in 09/2020. The rest of the coronary vessels have diffuse mild to moderate disease. The right coronary artery is dominant. Normal global left ventricular systolic function with ejection fraction of 60%. Normal left ventricular end-diastolic pressure. Hypothyroidism - TSH is 35.46 on lab of 10-25-2020, being managed by her pcp - TSH is 80.98 on lab of 03-03-22, being managed by PCP (recent dose increased) Syncope of undetermined etioloy - ILR implanted 04-12-21. No significant arrhythmia seen so far HTN - controlled HLD - statin - followed by PCP Leg claudication - DAYANA of 12-06-20 shows no evidence of any significant obstructive PAD of the lower limbs Family h/o - father having a CVA - H/o hysterectomy Plan: S/P successful PCI on 08-15-22 Continue home medications including DAPT, statin and BB Ok to discharge home today with out pt f/u in 1 week Return to work will be determined after in office f/u abat GEORGI LIPSCOMB Aug 16, 2022 07:59
[2022-08-16 08:00] VITALS: BP 128/60
--- NOTE | 2022-08-16 08:00 | Discharge Inst-Cardiology ---
Discharge Inst-Cardiac Discharge Medications Continued Medications: Aspirin (Aspirin) 81 Mg Tab.chew 81 MG PO HS, TAB Atorvastatin Calcium (Atorvastatin Calcium) 80 Mg Tablet 80 MG PO HS, TAB Clopidogrel Bisulfate (Clopidogrel) 75 Mg Tablet 75 MG PO HS, TAB Levothyroxine Sodium (Levothyroxine Sodium) 200 Mcg Tablet 200 MCG PO DAILY, TAB Metoprolol Succinate (Metoprolol Succinate) 25 Mg Tab.er.24h 25 MG PO HS, TAB Patient Instructions Patient Instructions: Please schedule a follow up appointment to see Dr. Cutler in 1-2 weeks GEORGI LIPSCOMB Aug 16, 2022 08:00
[2022-08-16] MEDS ORDERED: CLOPIDOGREL 75 MG (PLAVIX) TABLET PO SCH (09:00)
[2022-08-16] MEDS ORDERED: ASPIRIN 81 MG CHEW (CHILDREN'S ASA) PO SCH (09:00)
[2022-08-16] MEDS ORDERED: LEVOTHYROXINE SODIUM 200 MCG PO SCH (09:00)
[2022-08-16] MEDS ORDERED: meTOproloL SUCCINATE 50 MG (TOPROL XL) TAB PO SCH (09:00)
--- NOTE | 2022-08-16 11:54 | Progress Note - Cardiology ---
Cardiology SOAP Progress Note Subjective: No cp or palp or syncope or shortness of breath No groin or leg discomfort or discoloration No n/v/d No focal weakness No fever or chills or gen weakness Objective: I&O/Vital Signs 08/16/22 08/16/22 08/16/22 08/16/22 00:00 01:00 04:00 04:00 Pulse 65 64 72 Resp 14 20 B/P (MAP) 112/59 (76) 124/61 (82) Pulse Ox 96 96 O2 Delivery Room Air Room Air Room Air 08/16/22 08/16/22 08/16/22 08/16/22 07:29 07:40 07:47 08:00 Temp 36.6 Pulse 65 62 64 Resp 12 11 B/P (MAP) 133/67 (89) 128/60 (82) Pulse Ox 97 97 O2 Delivery Room Air Room Air Room Air Weight (Pounds): 170 Weight (Calculated Kilograms): 77.263734 Side: right Groin site without hematoma: Yes Condition: DP/PT pulses palpable, extremity w/d/p Bruising: mild bruising Constitutional: AAO x 3, well-developed, well-nourished Respiratory: chest expansion is symmetric, chest is bilaterally symmetric, lungs clear to auscultation Cardiovascular: regular rate-rhythm, S1 and S2 Gastrointestional: soft, round, audible bowel sounds Extremities: no lower extremity edema bilateral Neurologic/Psychiatric: grossly intact Skin: No rash on exposed areas, No ulcerations on exposed areas Results/Procedures: Labs Laboratory Tests 08/16/22 05:20: White Blood Count 6.3, Red Blood Count 4.12, Hemoglobin 11.9, Hematocrit 36, Mean Corpuscular Volume 86, Mean Corpuscular Hemoglobin 29, Mean Corpuscular Hemoglobin Concent 33, Red Cell Distribution Width 13.2, Platelet Count 245, Mean Platelet Volume 11.2, Immature Granulocyte % (Auto) 0, Neutrophils (%) (Auto) 64, Lymphocytes (%) (Auto) 22, Monocytes (%) (Auto) 7, Eosinophils (%) (Auto) 6, Basophils (%) (Auto) 1, Neutrophils # (Auto) 4.1, Lymphocytes # (Auto) 1.4, Monocytes # (Auto) 0.4, Eosinophils # (Auto) 0.4H, Basophils # (Auto) 0.0, Immature Granulocyte # (Auto) 0.0, Sodium Level 139, Potassium Level 4.0, Chloride Level 107, Carbon Dioxide Level 23, Anion Gap 9, Blood Urea Nitrogen 11, Creatinine 0.78, Estimat Glomerular Filtration Rate 92, BUN/Creatinine Ratio 14, Glucose Level 107H, Calcium Level 8.9, Magnesium Level 1.8 Microbiology 08/15/22 MRSA Screen - Final, Complete MRSA not isolated A/P: Assessment: CAD. - NSTEMI on 10/25/20 - Card cath on 10/26/20: 99% mid LAD stented with Xience Mackenzie 2.5x28 stent, and 99% ostial D2 treated with balloon angioplasty, both with good results. Mild CAD in other cors. LVEDP 18 mmHg, LVEF 65% - MPI 03-03-22 No evidence of any significant myocardial ischemia or infarction study. Normal regional wall motion. Normal global left ventricular systolic function with a calculated ejection fraction of 64%. - Echocardiogram of 02-24-22 showed LVEF 60-65% - Cardiac cath of 08-15-22: Coronary artery disease primarily consisting of 70% to 80% mid vessel stenosis. Left circumflex that was successfully stented with Skypoint 2.5 x 12 mm stent with reduction of stenosis to no significant residual. The left anterior descending artery has a widely patent stent in its mid portion that is known to be Xience Mackenzie 2.5 x 28 mm that was placed in 09/2020. The rest of the coronary vessels have diffuse mild to moderate disease. The right coronary artery is dominant. Normal global left ventricular systolic function with ejection fraction of 60%. Normal left ventricular end-diastolic pressure. Hypothyroidism - TSH is 35.46 on lab of 10-25-2020, being managed by her pcp - TSH is 80.98 on lab of 03-03-22, being managed by PCP (recent dose increased) Syncope of undetermined etioloy - ILR implanted 04-12-21. No significant arrhythmia seen so far HTN - controlled HLD - statin - followed by PCP Leg claudication - DAYANA of 12-06-20 shows no evidence of any significant obstructive PAD of the lower limbs Family h/o - father having a CVA - H/o hysterectomy Plan: S/P successful PCI on 08-15-22. I discussed the details of procedure and aftercare with her and her Continue home medications including DAPT, statin and BB Ok to discharge home today with out pt f/u in 1 week Return to work will be determined after in office f/u abat GELY TAYLOR MD FACP [facility]AC CCDS Aug 16, 2022 11:54
== END 2022-08-16 10:40 | disposition home or self-care (01) ==
LOC: CATH 07:51 → CSD 12:15 → CATH 08-16 10:40
PROVIDERS: ATTEND Internal Medicine Cardiovascular Disease
DX: I25.118 Atherosclerotic heart disease of native coronary artery with other forms of angina pectoris (principal); E03.9 Hypothyroidism, unspecified; I10 Essential (primary) hypertension; I70.213 Atherosclerosis of native arteries of extremities with intermittent claudication, bilateral legs; Z86.73 Personal history of transient ischemic attack (TIA), and cerebral infarction without residual deficits; I25.2 Old myocardial infarction; E78.2 Mixed hyperlipidemia; Z79.899 Other long term (current) drug therapy
CPT/HCPCS: 80048; 80053; 80061; 83735; 85025; 85027; 85610; 85730; 87081; 93005 ×2; 93458; C1769; C1874; C1887; C1894 ×2; C9600; 36415

== ENCOUNTER → 2022-09-01 | Outpatient (CLI) | payer BC ==
[~2022-09-01] MED LIST changes: +CATHETER FLUSH 10 ML SYR IV PRN; +HOLD METFORMIN - RECEIVED CONTRAST 20 ML VIAL IV SCH; +IOHEXOL 350 MG/ML 150 ML (OMNIPAQUE 350) VIAL IV ONE; +LEVO200C2 PO; +LEVO200T6 PO; +MTP25TSR PO; +NS 100 ML (IVPB) BAG IV ONE
[2022-09-01 11:44] LABS: BASOPHILS % (AUTO) 0 % (0-10); EOSINOPHILS # (AUTO) 0.5 10^3/uL (0.0-0.3); EOSINOPHILS % (AUTO) 8 % (0-10); HEMATOCRIT 37 % (35-52); HEMOGLOBIN 12.2 g/dL (11.5-16.0); LYMPHOCYTES # (AUTO) 1.2 10^3/uL (1.0-4.0); LYMPHOCYTES % (AUTO) 20 % (12-44); MEAN CORPUSCULAR HEMOGLOBIN 28 pg (25-34); MEAN CORPUSCULAR HGB CONC 33 g/dL (32-36); MEAN CORPUSCULAR VOLUME 86 fL (80-99); MEAN PLATELET VOLUME 10.2 fL (9.0-12.2); MONOCYTES # (AUTO) 0.4 10^3/uL (0.0-1.0); MONOCYTES % (AUTO) 6 % (0-12); NEUTROPHILS # (AUTO) 3.8 10^3/uL (1.8-7.8); NEUTROPHILS % (AUTO) 65 % (42-75); PLATELET COUNT 290 10^3/uL (130-400); WHITE BLOOD COUNT 5.8 10^3/uL (4.3-11.0)
[2022-09-01 11:58] LABS: ALBUMIN 4.3 GM/DL (3.2-4.5); POTASSIUM 4.1 MMOL/L (3.6-5.0)
[2022-09-01 11:59] LABS: CALCIUM 9.5 MG/DL (8.5-10.1)
[2022-09-01 12:01] LABS: TOTAL PROTEIN 7.3 GM/DL (6.4-8.2)
[2022-09-01 12:02] LABS: BILIRUBIN,TOTAL 0.7 MG/DL (0.1-1.0)
[2022-09-01 12:04] LABS: CREATININE SERUM 0.85 MG/DL (0.60-1.30)
--- NOTE | 2022-09-01 14:24 | Diagnostic Imaging Report ---
INDICATION: Right leg pain, dyspnea, palpitations. TECHNIQUE: CTA of the aorta and bilateral lower extremities was performed with axial slices without IV contrast and sagittal and coronal MIP reconstructions. Dose reduction protocol was used. FINDINGS: The visualized portions of the lung bases are clear except for a calcified granuloma in the right base. There is no pleural fluid or free intraperitoneal air. The liver, spleen, adrenals, and pancreas all appear unremarkable. There are incidental gallstones in the gallbladder. Kidneys bilaterally are normal. There is no retroperitoneal mass or adenopathy. There is no ascites or abnormal fluid collection. Visualized bowel loops appear unremarkable. Bony structures show no focal abnormality. CTA images demonstrate the abdominal aorta to be normal in caliber and appearance. Celiac trunk and SMA are patent and without stenosis. Renal arteries bilaterally are patent and without stenosis. The inferior mesenteric artery is patent. There is minor plaquing in the distal aorta. The common iliac arteries, internal iliac arteries, and external iliac arteries are patent and normal in caliber bilaterally. Common femoral arteries and femoral bifurcations are patent. The profunda femoris arteries and SFA are patent on each side and without stenosis or significant plaquing. The popliteal arteries and trifurcations are patent on both sides and without significant stenosis. All three tibial vessels are visualized on both sides and appear patent. IMPRESSION: No evidence of significant arterial stenosis or occlusion in the aorta, pelvis, or lower extremities. There are incidental gallstones; no other significant findings are present. Dictated by: Dictated on workstation # [id number]
== END ==
LOC: CARD 11:24
PROVIDERS: ATTEND Internal Medicine Cardiovascular Disease
DX: K80.80 Other cholelithiasis without obstruction (principal); M79.604 Pain in right leg; I25.2 Old myocardial infarction; I25.10 Atherosclerotic heart disease of native coronary artery without angina pectoris; I10 Essential (primary) hypertension; E78.2 Mixed hyperlipidemia; R55 Syncope and collapse; E03.9 Hypothyroidism, unspecified; I20.8 Other forms of angina pectoris; G47.33 Obstructive sleep apnea (adult) (pediatric)
CPT/HCPCS: 75635; 80053; 80061; 84443; 85025; 93225; 93226; C8929; 36415; 93306

== ENCOUNTER 2023-02-14 20:32 | Outpatient (CLI) | payer BC ==
[~2023-02-14 20:32] MED LIST changes: -CATHETER FLUSH 10 ML SYR IV PRN; -HOLD METFORMIN - RECEIVED CONTRAST 20 ML VIAL IV SCH; -IOHEXOL 350 MG/ML 150 ML (OMNIPAQUE 350) VIAL IV ONE; -NS 100 ML (IVPB) BAG IV ONE
== END 2023-02-15 06:05 | disposition home or self-care (01) ==
LOC: SLEEP 20:32
PROVIDERS: ATTEND Nurse Practitioner Family
DX: G47.10 Hypersomnia, unspecified (principal)
CPT/HCPCS: 95811

== ENCOUNTER → 2023-08-07 | Outpatient (CLI) | payer BC ==
[~2023-08-07] MED LIST changes: +CATHETER FLUSH 10 ML SYR IVP PRN; +REGADENOSON 0.4 MG/5 ML SYR IV ONE
[2023-08-07 13:23] VITALS: BP 147/74
--- NOTE | 2023-08-09 20:53 | STRESS TEST ---
DATE OF SERVICE: 08/07/2023 RESTING AND POST REGADENOSON TECHNETIUM-99M TETROFOSMIN SPECT CT IMAGING ORDERING PHYSICIAN: Dr. Cutler. PRIMARY PHYSICIAN: [facility]. CLINICAL DIAGNOSIS: Chest discomfort. Baseline images were carried out after injection of 10.64 mCi of technetium-99m tetrofosmin. This was followed by 0.4 mg regadenoson and 32.4 mCi of technetium-99m tetrofosmin for stress imaging. The electrocardiogram showed sinus rhythm at baseline. It did not change significantly with regadenoson infusion. The patient tolerated the procedure well. Review of images at rest and following stress does not indicate any significant perfusion defects consistent with myocardial ischemia or infarction. Gated images show normal global left systolic function with normal regional wall motion. Left ventricular ejection fraction is calculated to be 63%. CONCLUSIONS: 1. No evidence of any significant myocardial ischemia or infarction. 2. Normal regional wall motion. 3. Normal global left ventricular systolic function with a calculated ejection fraction of 63%. Job ID: [id number] DocumentID: [id number] Dictated Date: 08/09/2023 19:02:11 [employer] Date: 08/09/2023 20:53:00 Dictated By: GELY CUTLER MD; HANNAH; FACP; FACC;
== END ==
LOC: CARD 11:23
PROVIDERS: ATTEND Internal Medicine Cardiovascular Disease
DX: R07.89 Other chest pain (principal)
CPT/HCPCS: 78452; 93017; A9502

== ENCOUNTER 2023-09-04 10:21 | Day surgery (SDC) | payer BC ==
[~2023-09-04] VITALS: Ht 152.4 cm; Wt 75.0 kg
[2023-09-04] VITALS (9 sets, daily range): BP systolic 137–155; BP diastolic 65–85
[~2023-09-04 10:21] MED LIST changes: -CATHETER FLUSH 10 ML SYR IVP PRN; -REGADENOSON 0.4 MG/5 ML SYR IV ONE
[2023-09-04] MEDS ORDERED: LIDOCAINE 1% INJ 20 ML VIAL ONE (10:41)
[2023-09-04] MEDS ORDERED: HEParin (CATH LAB) 2,000 ML IV ONE (10:42)
[2023-09-04] MEDS ORDERED: NS IV 1000 ML 1,000 ML ONE (10:42)
[2023-09-04] MEDS ORDERED: NS IV 1000 ML 1,000 ML IV SCH (10:45)
[2023-09-04 11:03] LABS: HEMATOCRIT 38 % (35-52); HEMOGLOBIN 12.9 g/dL (11.5-16.0); MEAN CORPUSCULAR HEMOGLOBIN 29 pg (25-34); MEAN CORPUSCULAR HGB CONC 34 g/dL (32-36); MEAN CORPUSCULAR VOLUME 85 fL (80-99); PLATELET COUNT 296 10^3/uL (130-400); WHITE BLOOD COUNT 5.6 10^3/uL (4.3-11.0)
[2023-09-04] MEDS ORDERED: fentaNYL INJECTION 100 MCG/2 ML VIAL ONE (11:04)
[2023-09-04] MEDS ORDERED: MIDAZOLAM INJ 5 MG/5 ML VIAL ONE (11:04)
[2023-09-04] MEDS ORDERED: VERAPAMIL 5 MG/2 ML (CALAN) VIAL IV ONE (11:04)
[2023-09-04] MEDS ORDERED: NITRO DRIP 25000 MCG/D5W 0 ML IV ONE (11:05)
[2023-09-04] MEDS ORDERED: HEParin 1000 UNIT/ML (10ML VIAL) FOR BOLUS ONE (11:05)
[2023-09-04 11:17] LABS: PROTHROMBIN TIME PATIENT 13.1 SEC (12.2-14.7)
[2023-09-04 11:24] LABS: ALBUMIN 4.3 GM/DL (3.2-4.5); BILIRUBIN,TOTAL 0.5 MG/DL (0.1-1.0); CALCIUM 9.2 MG/DL (8.5-10.1); CREATININE SERUM 0.72 MG/DL (0.60-1.30); POTASSIUM 4.1 MMOL/L (3.6-5.0); TOTAL PROTEIN 7.4 GM/DL (6.4-8.2)
[2023-09-04] MEDS ORDERED: ATROPINE 1 MG/10 ML EMERGENCY SYRINGE ONE (12:13)
--- NOTE | 2023-09-04 12:30 | Cardiac Procedure Note-CS/ASA ---
Pre-Procedure Note Pre-Op Procedure Note Date of Available H&P: Aug 22, 2023 Date H&P Reviewed: Sep 04, 2023 Time H&P Reviewed: 11:50 History & Physical: H&P Reviewed, No changes noted Moderate Sedation PreProcedure ASA Score 3 Airway Lungs Heart ASA score ASA 1: a normal healthy patient ASA 2: a patient with a mild systemic disease (mid diabetes, controlled hypertension, obesity ASA 3: a patient with a severe systemic disease that limits activity (angina, COPD, prior Myocardial infarction) ASA 4: a patient with an incapacitating disease that is a constant threat to life (CHF, renal failure) ASA 5: a moribund patient not expected to survive 24 hrs. (ruptured aneurysm) ASA 6: a declared brain- patient whose organs are being harvested. For emergent operations, add the letter E after the classification Mallampati Classification Grade 2 Sedation Plan Analgesia, Amnesia, Plan communicated to team members The patient is an appropriate candidate to undergo the planned procedure, sedation, and anesthesia. The patient immediately re-assessed prior to indication. GELY TAYLOR MD FACP FAC CCDS Sep 04, 2023 12:30
--- NOTE | 2023-09-04 12:48 | Cardiac Cath Report ---
CARDIAC CATHETERIZATION DATE OF PROCEDURE: 09-04-23 INDICATION: Frequent chest pain HISTORY: The patient is a 52 year old female with h/o CAD and currently frequent chest pains that she feels may be cardiac PROCEDURES PERFORMED: 1. Cor angio; 2. LHC and LV angio; 3. iFR in prox and mid RCA PROCEDURE DESCRIPTION: After informed consent and in the fasting state, left heart catheterization was performed through the R fem artery after we were unable to advance a wire into the R radial artery despite gaining good access with the needle more than once. 5F JR4 and JL4 for cors; 5F pigtail for LHC and LV angio; for equipment of iFR see below HEMODYNAMICS: LVEDP 15 mmHg, no significant pressure gradient on pullback across the aortic valve CORONARY ANGIOGRAPHY Left main coronary artery: Ok Left anterior descending coronary artery: Patent mid vessel stent (known to be Xience Mackenzie 2.[address] in 10/17) and diffuse mild plaques Left circumflex coronary artery: Patent mid vessel stent (known to be Skypoint 2.[address] in 08/19) and diffuse mild plaques Right coronary artery: 30% prox and mid-vessel stenosis with iFR across the combination of these being 0.98 LV ANGIO LÓPEZ projection: LVEF 60%, no wall motion abnormality in this projection IMPRESSION: 1. Mild to mod diffuse CAD. Patent stents in the mid LAD and mid LCx. RCA has 30% tandem stenoses with iFR across the sum of these lesions being 0.98 2. LVEF 60% 3. LVEDP 15 mmHg PLAN: Medical therapy. BB, CCB, DAPT, statin Outpt f/u advised GELY TAYLOR MD [facility] CCDS Sep 04, 2023 12:48
[2023-09-04] MEDS ORDERED: AMLO2.5T4 PO (12:52)
[2023-09-04] MEDS ORDERED: CLOP-31 PO (12:52)
--- NOTE | 2023-09-04 12:53 | Discharge Inst-Cardiology ---
Discharge Inst-Cardiac Discharge Medications New Medications: Amlodipine Besylate (Amlodipine Besylate) 2.5 Mg Tablet 2.5 MG PO DAILY, #30 TAB 5 Refills Clopidogrel Bisulfate (Plavix) 75 Mg Tablet 75 MG PO DAILY for 30 Days, #30 TAB 5 Refills Continued Medications: Aspirin (Aspirin) 81 Mg Tab.chew 81 MG PO HS, TAB Atorvastatin Calcium (Atorvastatin Calcium) 80 Mg Tablet 80 MG PO HS, TAB Levothyroxine Sodium (Levothyroxine Sodium) 200 Mcg Tablet 200 MCG PO DAILY, TAB Metoprolol Succinate (Metoprolol Succinate) 25 Mg Tab.er.24h 25 MG PO HS, TAB GELY TAYLOR MD FACP [facility] Sep 04, 2023 12:53
--- NOTE | 2023-09-04 12:54 | Discharge Inst-Post CATH ---
Discharge Inst-CATH/EP Post Cardiac Cath/EP D/C Inst Follow Up/Plan F/u with Dr Cutler in 2-3 weeks ACTIVITY * Go Home directly and rest. * Limit activity of the leg (or wrist if it was used) for 7 days including aerobics, swimming, jogging, bicycling, etc. * Restrict stair-climbing for 7 days if possible, if not, climb up with your non-cath leg, then bring together on the same step. * Avoid lifting, pushing, pulling or excessive movement of the affected e xtremity for 7 days. * Customary sexual activity may be resumed after 2 days-use caution not to use a position that strains or causes pain to the affected extremity. * No driving for 24 hours. * NO SMOKING. * Avoid straining for bowel movements for 7 days. * Gentle walking on level ground is allowed. * Returning to work will depend on the type of procedure and the results. Your doctor will discuss this with you. CALL YOUR DOCTOR FOR ANY OF THE FOLLOWING: *If bleeding from the puncture site occurs- Apply gentle pressure to site with clean cloth and call your doctor or EMS. * If a knot or lump forms under the skin, increases in size, or causes pain. * If bruising appears to be worsening or moving further down your leg instead of disappearing. * Temperature above 101 F. CARE OF YOUR GROIN INCISION; * Bruising or purple discoloration of the skin near the puncture site is common. * You may shower only, no bathtub bathing for 5 days. Be careful to avoid slipping as your leg may feel stiff. * If a closure device was used on your femoral artery, please see the attached guide regarding care of the device and your leg. * Leave dressing on FOR 24 hours. CARE OF YOUR WRIST INCISION; * Bruising or purple discoloration of the skin near the puncture site is common. * You may shower. * DO NOT submerge wrist. * Leave dressing on FOR 24 hours. GELY CUTLER MD [facility]S Sep 04, 2023 12:54
== END 2023-09-04 16:30 | disposition home or self-care (01) ==
LOC: CATH 10:21 → SDC 13:05 → CATH 16:30
PROVIDERS: ATTEND Internal Medicine Cardiovascular Disease
DX: I25.118 Atherosclerotic heart disease of native coronary artery with other forms of angina pectoris (principal); E03.9 Hypothyroidism, unspecified; R55 Syncope and collapse; G47.00 Insomnia, unspecified; I10 Essential (primary) hypertension; I70.213 Atherosclerosis of native arteries of extremities with intermittent claudication, bilateral legs; M79.651 Pain in right thigh; I25.2 Old myocardial infarction; E78.2 Mixed hyperlipidemia; R06.09 Other forms of dyspnea; M79.604 Pain in right leg; R00.2 Palpitations; G47.33 Obstructive sleep apnea (adult) (pediatric); Z95.5 Presence of coronary angioplasty implant and graft; Z79.899 Other long term (current) drug therapy; Z90.710 Acquired absence of both cervix and uterus; Z79.890 Hormone replacement therapy; Z79.82 Long term (current) use of aspirin; Z79.02 Long term (current) use of antithrombotics/antiplatelets
CPT/HCPCS: 80053; 80061; 85027; 85347; 85610; 85730; 87081; 93005; 93458; 93571; C1760; C1769; C1887; C1894 ×2; 36415